=== PATIENT | male | born 1995 | race Caucasian/White ===

== ENCOUNTER 2020-03-14 19:05 | Emergency (ER) | payer MEDICAID, SELFPAY ==
[2020-03-14 19:10] VITALS: BP 149/101; PULSE 138; RESP 22; TEMP 37; O2SAT 98; BMI 22.3
[2020-03-14 19:21] VITALS: BP 133/94; PULSE 123
--- NOTE | 2020-03-14 19:22 | HMH.EDUTC ---
[facility] Disposition Clinical Impression: Viral syndrome, Encounter for laboratory testing for COVID-19 virus Disposition: Home, Self-Care Condition on Discharge: Good Instructions: Diarrhea, DI for Vomiting -- Adult, Nausea and Vomiting-Adult, DI for COVID-19 (Suspected or Confirmed ), COVID-19 Viral Test, Preventing the Spread of Coronavirus Discharge Instructions Additional Instructions: *Monitor Temp, Over the counter Motrin or Tylenol as directed/as needed Tylenol every 4 hours and Motrin every 6 hours (as long as your family doctor has told you that you can take it) for fever or pain. and straight to ER if unable to lower temp less than 101.0 after medication given ? Avoid fruit juices, as these do not replace minerals and can actually increase diarrhea. ? Children and adults can use sports drinks to replenish electrolytes. Younger children and infants should use products formulated for children, like oral rehydration solutions. ? Eat food in small amounts and let your stomach recover. ? Get lots of rest. You may feel tired or weak. ? No greasy or fried foods for the next 24-48 hours BRAT diet Bananas Rice Apples and [employer] ? Make sure to drink plenty of liquids ? Return if needed ? Straight to ER if any life threatening symptoms ? Zofran as prescribed ? Follow up with family doctor in the next 48-72 hours if no improvement or any worsening of symptoms Follow up IMMEDIATELY for new or worsening symptoms or no Noticeable improvement over the next 48-72 hours. 911 for difficulty breathing or swallowing You were tested for today for COVID19 your test result should be back in the next 24-48 hours, you may call to the [facility] to see if your test results are back in the next 48 hours [phone] [facility] hours are 9am-9pm You was given a handout with instructions for Self Quarantine and Self isolation for while you wait on test results and what to do if they are positive If you are positive the Health Dept will be contacting you also Prescriptions: Ondansetron [Zofran 4mg ODT] 4 mg PO TIDP PRN #12 tab PRN Reason: Vomiting Transmission Status: Received by [facility]/pharmacy #[id number] Referrals: Gianni Cox, [Primary Care Provider] - As needed Forms: Work/School Release Time of Disposition: 19:33 Medical Decision Making - Sandro Inquiry Pt receiving controlled substance: No Sandro was queried for this patient: No Vital Signs: 03/14/20 19:10 03/14/20 19:21 Temperature 98.6 F Temperature Source Oral Pulse Rate [Right Brachial] 138 H 123 H Respiratory Rate 22 Blood Pressure [Right Arm] 149/101 H 133/94 H Blood Pressure Mean [Right Arm] 117 107 Blood Pressure Source [Right Arm] Automatic Cuff Automatic Cuff Blood Pressure Position [Right Arm] Sitting Sitting 02 Sat by Pulse Oximetry 98 Oxygen Delivery Method Room Air - Lab Data Lab Results 03/14/20 19:28: Influenza Type A Ag Negative, Influenza Type B Ag Negative Orders (Tests/Meds): ORDERS Category Date Time Status Covid-19 Nasal PCR ([facility]) Routine Lab 03/14/20 19:10 Received Medical Decision Narrative: Discussed with patient and recommended IV bolus of NS and patient declined States that he has not had any vomiting or diarrhea today and has been drinking water and keeping it down State that he does not want any IV fluids at this time Patient educated that he must be drinking fluids to keep himself hydrated and he verbalized understanding Discussed transfer to the ED for further treatment and evaluation and again declined [facility] HPI - General Stated complaint: COVID Test Time Seen by Provider: 03/14/20 19:22 Mode of Arrival: Ambulatory Source of Information: Patient Limitations: No Limitations Description of Symptoms (Recalled from Triage Doc. by RN): PATIENT C/O FEVER, DIARRHEA, BODY ACHES, AND WEAKNESS SINCE THURSDAY HEENT Symptoms (Recalled from RN notes): No Resp Symptoms (Recalled from RN notes): No Skin Symptoms (Recalled from RN notes): No MS Sy
[2020-03-14 19:42] LABS: UTC Influenza A Antigen Negative (Negative); UTC Influenza B Antigen Negative (Negative)
[2020-03-14 19:51] VITALS: BP 133/94; PULSE 104; RESP 22; TEMP 37; O2SAT 98
== END 2020-03-14 19:52 | disposition home or self-care (01) ==
PROVIDERS: Emergency Provider Nurse Practitioner; PCP Family Medicine
DX: Z20.828 Contact with and (suspected) exposure to other viral communicable diseases (principal); B34.9 Viral infection, unspecified
CPT/HCPCS: 87804; 99202; U0003

== ENCOUNTER → 2021-03-28 16:36 | Outpatient (CLI) | payer OTHER, SELFPAY | PROVIDERS: Visit Provider Nurse Practitioner | DX: U07.1 COVID-19 (principal) | CPT/HCPCS: C9803; U0003; U0005 ==

== ENCOUNTER → 2021-11-26 07:21 | Outpatient (CLI) | payer SELFPAY ==
[2021-11-26 19:52] LABS: Eosinophils # 0.1 K/mm3 (0.0-0.4); Eosinophils % 2.3 % (0.1-12.0); Hemoglobin 16.6 g/dL (14.1-18.0); Lymphocytes # 1.1 K/mm3 (0.7-4.5); Lymphocytes % 27.6 % (10-50); Mean Corpuscular Hemoglobin 33.3 pg (27.0-31.2); Mean Corpuscular Volume 104.3 fl (80-94); Mean Platelet Volume 8.9 fl (7.4-10.4); Monocytes # 0.6 K/mm3 (0.1-1.0); Monocytes % 13.7 % (1.7-9.3); Neutrophils # 2.3 K/mm3 (1.8-7.8); Neutrophils % 55.3 % (37.0-80.0); Platelet Count 302 K/mm3 (142-424); Red Blood Count 4.99 M/mm3 (4.60-6.20); Red Cell Distribution Width 12.6 % (11.5-17.5); White Blood Count 4.1 K/mm3 (4.8-10.8)
[2021-11-26 19:57] LABS: Alanine Aminotransferase 87 U/L (12-78); Albumin Level 4.8 g/dl (3.5-5.0); Albumin/Globulin Ratio 1.6 (1.1-1.8); Alkaline Phosphatase 56 U/L (38-126); Anion Gap 12.6 mEq/L (5-15); Aspartate Amino Transferase 147 U/L (17-59); Bilirubin,Total 0.5 mg/dl (0.2-1.3); Blood Urea Nitrogen 5 mg/dl (9-20); Calcium 9.9 mg/dl (8.4-10.2); Carbon Dioxide 30 mmol/L (22.0-30.0); Chloride 102 mmol/L (98-107); Estimated Glomerular Filt Rate 135 ml/min (>60); GFR (African American) 164 ML/MIN (>60); Glucose 86 mg/dl (74-100); Potassium 4.6 mmoL/L (3.5-5.1); Sodium 140 mmol/L (136-145); Total Protein,Serum 7.8 g/dl (6.3-8.2)
[2021-11-26 21:12] LABS: Thyroid Stimulating Hormone 2.05 uIU/mL (0.465-4.68)
[2021-11-26 22:06] LABS: 25-OH Vitamin D, Total 26.5 ng/mL (30-100)
== END ==
PROVIDERS: PCP Nurse Practitioner; Visit Provider Nurse Practitioner
DX: F32.A Depression, unspecified (principal); F41.9 Anxiety disorder, unspecified; E55.9 Vitamin D deficiency, unspecified; Z79.899 Other long term (current) drug therapy
CPT/HCPCS: 80053; 82306; 84443; 85025

== ENCOUNTER → 2021-12-24 11:00 | Outpatient (CLI) | payer OTHER, SELFPAY ==
[2021-12-24 18:28] LABS: Basophils # 0.1 K/mm3 (0-0.2); Basophils % 1.2 % (0.1-2.0); Eosinophils # 0.2 K/mm3 (0.0-0.4); Eosinophils % 2.9 % (0.1-12.0); Hematocrit 53.7 % (42.0-52.0); Hemoglobin 17.5 g/dL (14.1-18.0); Lymphocytes # 1.5 K/mm3 (0.7-4.5); Lymphocytes % 21.7 % (10-50); Mean Corpuscular HGB Conc 32.6 g/dL (31.8-35.4); Mean Corpuscular Hemoglobin 33.2 pg (27.0-31.2); Mean Corpuscular Volume 101.9 fl (80-94); Mean Platelet Volume 8.8 fl (7.4-10.4); Monocytes # 0.7 K/mm3 (0.1-1.0); Monocytes % 9.8 % (1.7-9.3); Neutrophils # 4.3 K/mm3 (1.8-7.8); Neutrophils % 64.4 % (37.0-80.0); Platelet Count 263 K/mm3 (142-424); Red Blood Count 5.27 M/mm3 (4.60-6.20); Red Cell Distribution Width 12.9 % (11.5-17.5); White Blood Count 6.7 K/mm3 (4.8-10.8)
[2021-12-24 18:39] LABS: Alanine Aminotransferase 46 U/L (12-78); Albumin Level 4.7 g/dl (3.5-5.0); Alkaline Phosphatase 56 U/L (38-126); Aspartate Amino Transferase 61 U/L (17-59); Bilirubin,Indirect 0.4 mg/dL (0.0-0.9); Bilirubin,Total 0.4 mg/dl (0.2-1.3); Bilirubin,Unconjugated 0.4 mg/dL (0.0-1.1); Total Protein,Serum 7.5 g/dl (6.3-8.2)
== END ==
LOC: LAB.DROPOF 12-25 07:47
PROVIDERS: PCP Nurse Practitioner; Visit Provider Nurse Practitioner
DX: R74.8 Abnormal levels of other serum enzymes (principal)
CPT/HCPCS: 80076; 85025

== ENCOUNTER → 2022-01-20 15:13 | Outpatient (CLI) | payer OTHER, SELFPAY ==
[2022-01-20 19:14] LABS: Coronavirus 19, PCR Not Detected (NotDetected); Influenza A, PCR Not Detected (NotDetected); Influenza B, PCR Not Detected (NotDetected)
[2022-01-20 19:24] LABS: Basophils # 0.1 K/mm3 (0-0.2); Basophils % 0.8 % (0.1-2.0); Eosinophils # 0.1 K/mm3 (0.0-0.4); Eosinophils % 0.4 % (0.1-12.0); Hematocrit 54.3 % (42.0-52.0); Hemoglobin 17.8 g/dL (14.1-18.0); Lymphocytes # 0.9 K/mm3 (0.7-4.5); Lymphocytes % 8.4 % (10-50); Mean Corpuscular HGB Conc 32.8 g/dL (31.8-35.4); Mean Corpuscular Hemoglobin 33.7 pg (27.0-31.2); Mean Corpuscular Volume 102.9 fl (80-94); Mean Platelet Volume 9.1 fl (7.4-10.4); Monocytes # 1.1 K/mm3 (0.1-1.0); Monocytes % 10.6 % (1.7-9.3); Neutrophils # 8.6 K/mm3 (1.8-7.8); Neutrophils % 79.8 % (37.0-80.0); Platelet Count 337 K/mm3 (142-424); Red Blood Count 5.28 M/mm3 (4.60-6.20); Red Cell Distribution Width 14.1 % (11.5-17.5); White Blood Count 10.7 K/mm3 (4.8-10.8)
== END ==
LOC: LAB.DROPOF 01-21 06:30
PROVIDERS: PCP Nurse Practitioner; Visit Provider Nurse Practitioner
DX: Z20.822 Contact with and (suspected) exposure to COVID-19 (principal); R05.9 Cough, unspecified
CPT/HCPCS: 85025; C9803; U0003; U0005

== ENCOUNTER 2022-11-20 17:24 | Emergency (ER) | payer OTHER, SELFPAY ==
[2022-11-20 17:26] VITALS: BP 156/101; PULSE 89; RESP 17; TEMP 36.7; O2SAT 100; BMI 24.3
--- NOTE | 2022-11-20 17:30 | PC.NURSE ---
Bonny Arias rounded on pt, vss 154/108 bp, 92 hr, 14 rr, 98.0 temp, 100 RA
--- NOTE | 2022-11-20 17:38 | XR_ITS ---
PROCEDURE INFORMATION: Exam: XR Right Knee Exam date and time: 11/20/2022 5:48 PM Age: 27 years old Clinical indication: Injury or trauma; Fall; Blunt trauma; Knee; Right; Additional info: Fall/pain TECHNIQUE: Imaging protocol: Radiologic exam of the right knee. Views: 3 views. COMPARISON: No relevant prior studies available. FINDINGS: Bones/joints: There are multiple sclerotic foci within the visualized bones which could reflect small infarcts, please correlate with clinical history. No acute fracture or dislocation is identified. Soft tissues: Normal. IMPRESSION: 1. No acute osseous injury. 2. Small sclerotic foci throughout the bones which could reflect osseous infarcts. Further evaluation contrast-enhanced MRI can be considered as warranted.
--- NOTE | 2022-11-20 18:28 | HMH.EDGENADL ---
Discharge Plan Disposition Patient Disposition: Home, Self-Care Condition: Good Chief Complaint: Extremity Injury, Lower Prescriptions Prescriptions: No Action sertraline 100 mg tablet 150 mg PO DAILY Qty: 45 2RF ondansetron HCl 4 mg tablet 4 mg PO Q8H PRN (Reason: nausea and vomiting) Qty: 20 0RF hyoscyamine sulfate 0.125 mg tablet 0.125 mg PO QID PRN (Reason: diarrhea or abdominal cramping) Qty: 30 0RF aripiprazole 5 mg tablet See Rx Instructions .ROUTE .COMPLEX Qty: 30 0RF Dose Instruction: Take 1 Tablet by mouth once daily. Rx Instructions: Take 1 Tablet by mouth once daily. Referrals Follow up/Referrals: Neyda Alegre APRN [Primary Care Provider] - See instructions Jasiel Wallace DO [Staff Physician] - See instructions Activity Restrictions/Add. Instructions Additional Instructions/Restrictions: At this time was felt you are safe to be discharged home. If new or worsening symptoms please do not hesitate to return the emergency department. For pain please take Tylenol and ibuprofen every 6 hours as needed. Please call and schedule a follow-up appoint with Dr. Wallace as soon as you are able. Clinical Impressions Clinical Impression: Injury of knee Stand Alone Forms Stand Alone Forms: Work/School Release Discharge ED Provider: Felipe Maynard General Adult HPI General Chief complaint: Extremity Injury, Lower Stated complaint: AO 11/18/22 slipped at work right knee Time Seen by Provider: 11/20/22 17:45 Mode of Arrival: Family Vehicle Source of Information: Patient Limitations: No Limitations Description of Symptoms (Recalled from ER Triage Doc. by RN): Pt c/o R knee pain after a fall at work on Thursday. States he was bending down with his weight on the RLE, and his RLE slipped on water and the knee buckled in. He has taken Advil for the pain, most recently as of yesterday 11/19. States he is able to bear weight on the RLE ok but it is very painful when flexing or extending the knee with weight. 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 History of Present Illness HPI narrative: Patient is a 27-year-old male with no pertinent past medical history presents emergency department for evaluation of traumatic injury sustained at work. 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 Since then patient has had progressive lateral knee pain that is worse with bending, better with locked knee. Patient is able to bear weight. No other acute complaints at this time. Related Data Previous Rx's Medication Instructions Recorded sertraline 100 mg tablet 150 mg PO DAILY #45 tabs 05/06/22 aripiprazole 5 mg tablet See Rx Instructions .Route 06/11/22 .COMPLEX #30 tabs hyoscyamine sulfate 0.125 mg tablet 0.125 mg PO QID PRN diarrhea or 11/06/22 abdominal cramping #30 tabs ondansetron HCl 4 mg tablet 4 mg PO Q8H PRN nausea and 11/06/22 vomiting #20 tabs Allergies Allergy/AdvReac Type Severity Reaction Status Date / Time No Known Allergies Allergy Verified 11/06/22 13:56 [facility] Disclaimer: The information contained in this section may have been updated after the patient was seen, as this information can be updated by other users. Medical History Anxiety Depressed Social History Smoking Status: Current some day smoker tobacco type: e-cigarettes alcohol intake: current substance use type: denies use current occupational status: other Travel in the last 8 weeks: None household members: family housing: house ROS Obtained: Yes Systems reviewed as appropriate & no additional complaints except as documented Physical Exam General General appearance: alert and in no apparent distress Head Head exam: atraumatic and normocephalic Eye Eye exam: Present PERRL ENT ENT exam: Present mucous membranes mois
--- NOTE | 2022-11-20 18:28 | PC.NURSE ---
checked on pt updated him that xray of his knees are back and will be in to see him pt received a water
[2022-11-20 18:43] VITALS: BP 150/98; PULSE 85; RESP 18; TEMP 36.8; O2SAT 99
== END 2022-11-20 18:47 | disposition home or self-care (01) ==
PROVIDERS: Emergency Provider Emergency Medicine; PCP Nurse Practitioner
DX: S89.91XA Unspecified injury of right lower leg, initial encounter (principal); F17.290 Nicotine dependence, other tobacco product, uncomplicated; F41.9 Anxiety disorder, unspecified; F32.A Depression, unspecified; X50.1XXA Overexertion from prolonged static or awkward postures, initial encounter
CPT/HCPCS: 73562; 99283

== ENCOUNTER → 2023-01-22 22:41 | Outpatient (CLI) | payer OTHER, SELFPAY ==
[2023-01-22 20:30] LABS: Coronavirus 19, PCR Not Detected (NotDetected); Influenza A, PCR Not Detected (NotDetected); Influenza B, PCR Not Detected (NotDetected)
== END ==
PROVIDERS: PCP Nurse Practitioner; Visit Provider Nurse Practitioner
DX: J06.9 Acute upper respiratory infection, unspecified (principal); R11.2 Nausea with vomiting, unspecified; R68.83 Chills (without fever)
CPT/HCPCS: 87636

== ENCOUNTER 2023-06-04 22:22 | Outpatient (CLI) | payer OTHER, SELFPAY ==
[2023-06-04 18:28] LABS: Adenovirus,PCR Not Detected (NotDetected); Coronavirus 19, PCR Not Detected (NotDetected); Coronavirus 229E Not Detected (NotDetected); Coronavirus NL63 Not Detected (NotDetected); Coronavirus OC43 Not Detected (NotDetected); Coronovirus HKU1,PCR Not Detected (NotDetected); Human Metapneumovirus Not Detected (NotDetected); Influenza A, PCR Not Detected (NotDetected); Influenza AH1, 2009 Not Detected (NotDetected); Influenza AH1, PCR Not Detected (NotDetected); Influenza AH3,PCR Not Detected (NotDetected); Influenza B, PCR Not Detected (NotDetected); Parainfluenza 1, PCR Not Detected (NotDetected); Parainfluenza 2, PCR Not Detected (NotDetected); Parainfluenza 3, PCR Not Detected (NotDetected); Parainfluenza 4, PCR Not Detected (NotDetected); Respiratory Syncytial Virus Not Detected (NotDetected); Rhinovirus/Enterovirus Not Detected (NotDetected)
== END 2023-06-04 23:59 ==
LOC: LAB.DROPOF 22:22
PROVIDERS: PCP Nurse Practitioner; Visit Provider Nurse Practitioner
DX: R51.9 Headache, unspecified (principal); R09.81 Nasal congestion; J02.9 Acute pharyngitis, unspecified; M79.10 Myalgia, unspecified site; R05.8 Other specified cough; Z20.828 Contact with and (suspected) exposure to other viral communicable diseases
CPT/HCPCS: 87632; 87635

== ENCOUNTER 2023-07-23 10:52 | Emergency (ER) | payer OTHER, SELFPAY ==
--- NOTE | 2023-07-23 | ECG_ITS ---
APPROVED REPORT Exam: Resting ECG HR:102 bpm ECG Measurements Heart Rate 102 AXES SC 143 P 85 QRSd 101 QRS 82 QT 340 T 77 QTc 399 Conclusion SINUS TACHYCARDIA ABNORMAL RHYTHM ECG Electronically signed by : YONAS ENG, 07/25/2023 00:26:51
[2023-07-23 11:05] VITALS: BP 164/86; PULSE 103; RESP 23; TEMP 36.8; O2SAT 100; BMI 25.7
--- NOTE | 2023-07-23 11:17 | EXP.UTC ---
Discharge Plan Disposition Patient Disposition: Home, Self-Care Condition: Good Prescriptions Prescriptions: New hydroxyzine pamoate [Vistaril] 25 mg capsule 25 mg PO Q6H PRN (Reason: anxiety) Qty: 30 0RF magnesium oxide 400 mg magnesium tablet 400 mg PO BID Qty: 3 0RF No Action sertraline 100 mg tablet 150 mg PO DAILY Qty: 45 2RF fluticasone propionate 50 mcg/actuation spray,suspension 1 spray intranasal DAILY Qty: 16 2RF Rx Instructions: administer into each nostril aripiprazole 5 mg tablet See Rx Instructions .ROUTE .COMPLEX Qty: 30 0RF Dose Instruction: Take 1 Tablet by mouth once daily. Rx Instructions: Take 1 Tablet by mouth once daily. Referrals Follow up/Referrals: Neyda Alegre APRN [Primary Care Provider] - See instructions Activity Restrictions/Add. Instructions Additional Instructions/Restrictions: Drink plenty of fluids. Take tylenol or ibuprofen for pain or fever. Take the medications as directed. Follow up with your regular doctor. GO TO THE ER FOR ANY WORSENING SYMPTOMS Clinical Impressions Clinical Impression: Hypomagnesemia, Syncope, Acute viral syndrome Stand Alone Forms Stand Alone Forms: Work/School Release Instructions Patient Instructions: Middle Ear Infection, DI for Sinusitis Discharge ED Provider: Ethan Guzmán [facility] General Stated complaint: Almost Fainted at work Time Seen by Provider: 07/23/23 11:17 History of Present Illness Provider Complaint: He states that he started to feel bad yesterday. He had chills and malaise through last night. This morning he went to work. 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 While he was doing this he states that he started to feel worse. She states that he started to feel feel faint. He sit down in the floor. He states that he came very close to passing out. Since then he has felt weak, anxious, and had chills. He denies any chest pain. He denies that he felt like his heart was racing. He denies any shortness of breath. Related Data Previous Rx's Medication Instructions Recorded sertraline 100 mg tablet 150 mg (1.5 x 100 mg) PO DAILY #45 05/06/22 tabs fluticasone propionate 50 1 spray intranasal DAILY #16 grams 12/29/22 mcg/actuation nasal spray,suspension aripiprazole 5 mg tablet See Rx Instructions .Route 02/16/23 .COMPLEX #30 tabs hydroxyzine pamoate 25 mg capsule 25 mg PO Q6H PRN anxiety #30 caps 07/23/23 (Vistaril) magnesium oxide 400 mg PO BID #3 tabs 07/23/23 Allergies Allergy/AdvReac Type Severity Reaction Status Date / Time No Known Allergies Allergy Verified 07/23/23 11:42 [facility] Disclaimer: The information contained in this section may have been updated after the patient was seen, as this information can be updated by other users. Medical History Anxiety Depressed Social History Smoking Status: Current some day smoker tobacco type: e-cigarettes alcohol intake: current alcohol intake frequency: a few times a week substance use type: denies use current occupational status: other Travel in the last 8 weeks: None household members: family housing: house ROS Obtained: Yes All systems reviewed & no additional complaints except as documented Constitutional Constitutional: Reports as per HPI, Reports body ache, Reports chills and Denies fever(s) Eyes Eyes: Denies eye discharge ENT Ears, Nose, Mouth, and Throat: Reports as per HPI Cardiovascular Cardiovascular: Denies chest pain Respiratory Respiratory: Denies shortness of breath, Denies chest congestion, Reports cough, Denies stridor and Denies wheezing Gastrointestinal Gastrointestingal: Reports cramping, diarrhea, nausea and vomiting; Denies abdominal pain or constipation Musculoskeletal Musculoskeletal: Denies arthralgias Integumentary/Breasts Skin/Breast: Denies rash Neurologic Neurologic: Denies paresthesias Allergic/Immunologic Allergic/Immunologic: Denies wheezing Physical Exam General General appearance: alert and in no apparent distress Head Head exam: atraumatic, normocephalic and normal inspection Eye Eye exam: Present normal appearance, PERRL and EOMI ENT ENT exam: Present normal exam, normal oropharynx, mucous membranes moist, TM's normal bilaterally and normal external ear exam Neck Neck exam: Present normal inspection, full ROM and trachea midline; Absent meningismus or lymphadenopathy Chest Chest inspection: Present normal inspection and symmetric chest wall rise; Absent tenderness Respiratory Respiratory exam: Present normal lung sounds bilaterally; Absent respiratory distress Cardiovascular Cardiovascular exam: Present regular rate and normal rhythm; Absent JVD Abdominal Exam Abdominal exam: Present soft and normal bowel sounds; Absent distention, tenderness or guarding Extremities Exam Extremities exam: Present normal inspection, full ROM and normal capillary refill; Absent calf tenderness Back Exam Back exam: Present normal inspection; Absent tenderness Neurological Exam Neurological exam: Present alert and oriented X3 Psychiatric Psychiatric exam: Present normal affect and normal mood Skin Skin exam: Present warm, dry, intact and normal color Lymphatic Lymphatic Findings: no adenopathy Medical Decision Making Medical Records Medical records reviewed: No I reviewed the patient's medical records. Sandro Inquiry Pt receiving controlled substance: No Lab Data Lab results reviewed: Yes I reviewed the patient's lab results. 07/23/23 12:18 07/23/23 12:18
--- NOTE | 2023-07-23 11:32 | XR_ITS ---
FINAL REPORT TECHNIQUE: Chest PA & Lateral CLINICAL HISTORY: Nonspecific cough COMPARISON: None FINDINGS: 2 views of the chest were performed. The heart size is normal. The mediastinum is within normal limits. There is no acute cardiopulmonary process. There are no pleural effusions. There is no pneumothorax. The bony thorax appears intact. IMPRESSION: No acute cardiopulmonary process. Reviewed, Interpreted and Dictated by Prabhjot Solis MD Transcribed by Rhianna Rodriguez Authenticated and [facility]
[2023-07-23 11:43] VITALS: BP 164/86; BP 168/82; BP 172/88; PULSE 103; PULSE 105; PULSE 114
--- NOTE | 2023-07-23 12:19 | PC.NURSE ---
Sent blood to lab via tube system
[2023-07-23 12:25] LABS: Basophils # 0.1 K/mm3 (0-0.2); Basophils % 0.9 % (0.1-2.0); Eosinophils # 0.1 K/mm3 (0.0-0.4); Eosinophils % 1.2 % (0.1-12.0); Hemoglobin 16.5 g/dL (14.1-18.0); Lymphocytes # 1.6 K/mm3 (0.7-4.5); Lymphocytes % 14.1 % (10-50); Mean Corpuscular HGB Conc 34.4 g/dL (31.8-35.4); Mean Corpuscular Hemoglobin 35.5 pg (27.0-31.2); Mean Corpuscular Volume 103.2 fl (80-94); Mean Platelet Volume 7.6 fl (7.4-10.4); Monocytes # 0.8 K/mm3 (0.1-1.0); Monocytes % 6.6 % (1.7-9.3); Neutrophils # 8.9 K/mm3 (1.8-7.8); Neutrophils % 77.3 % (37.0-80.0); Platelet Count 291 K/mm3 (142-424); Red Blood Count 4.65 M/mm3 (4.60-6.20); Red Cell Distribution Width 14.1 % (11.5-17.5); White Blood Count 11.5 K/mm3 (4.8-10.8)
[2023-07-23] MEDS: hydrOXYzine pamoate 25MG CAPSULE 25 MG PO (12:26)
[2023-07-23 12:27] LABS: UTC Influenza A Antigen Negative (Negative); UTC Influenza B Antigen Negative (Negative); UTC Strep Screen (Rapid) Negative (Negative)
[2023-07-23] MEDS: 0.9 % SODIUM CHLORIDE 1000ML 1,000 ML 500 ML IV (12:27)
--- NOTE | 2023-07-23 12:44 | PC.NURSE ---
Sent rapid covid flu to lab via tube system
[2023-07-23 12:46] LABS: Anion Gap 26.6 mEq/L (5-15); Blood Urea Nitrogen 7 mg/dl (9-20); Calcium 9.4 mg/dl (8.4-10.2); Carbon Dioxide 19 mmol/L (22.0-30.0); Chloride 96 mmol/L (98-107); Creatinine Clearance Estimated 169 mL/min (50-200); Estimated Glomerular Filt Rate 133 ml/min (>60); GFR (African American) 161 ML/MIN (>60); Glucose 93 mg/dl (74-100); Magnesium 1.3 mg/dl (1.6-2.3); Potassium 3.6 mmoL/L (3.5-5.1); Sodium 138 mmol/L (136-145)
[2023-07-23 12:47] LABS: Coronavirus 19, PCR Not Detected (NotDetected); Influenza A, PCR Not Detected (NotDetected); Influenza B, PCR Not Detected (NotDetected)
[2023-07-23] MEDS: MAGNESIUM OXIDE 400MG TABLET 400 MG PO (13:45)
[2023-07-23 14:09] VITALS: BP 169/84; PULSE 120; RESP 18; TEMP 36.8; O2SAT 100
== END 2023-07-23 14:09 | disposition home or self-care (01) ==
PROVIDERS: Emergency Provider Nurse Practitioner Family; PCP Nurse Practitioner
DX: E83.42 Hypomagnesemia (principal); R55 Syncope and collapse; R00.0 Tachycardia, unspecified; R53.1 Weakness; R68.83 Chills (without fever); F17.290 Nicotine dependence, other tobacco product, uncomplicated
CPT/HCPCS: 71046; 80048; 83735; 85025; 87636; 87804; 87880; 93005; 96360; 99204; 99212; G0463

== ENCOUNTER 2023-08-03 09:30 | Outpatient (CLI) | payer OTHER, SELFPAY ==
[2023-08-03 18:57] LABS: Basophils # 0.1 K/mm3 (0-0.2); Basophils % 1.1 % (0.1-2.0); Eosinophils # 0.1 K/mm3 (0.0-0.4); Eosinophils % 2.3 % (0.1-12.0); Hematocrit 49.4 % (42.0-52.0); Hemoglobin 16.1 g/dL (14.1-18.0); Lymphocytes # 1.2 K/mm3 (0.7-4.5); Lymphocytes % 24.5 % (10-50); Mean Corpuscular HGB Conc 32.5 g/dL (31.8-35.4); Mean Corpuscular Hemoglobin 35.6 pg (27.0-31.2); Mean Corpuscular Volume 109.5 fl (80-94); Mean Platelet Volume 9.4 fl (7.4-10.4); Monocytes # 0.6 K/mm3 (0.1-1.0); Monocytes % 13.4 % (1.7-9.3); Neutrophils # 2.8 K/mm3 (1.8-7.8); Neutrophils % 58.6 % (37.0-80.0); Platelet Count 258 K/mm3 (142-424); Red Blood Count 4.52 M/mm3 (4.60-6.20); Red Cell Distribution Width 14.1 % (11.5-17.5); White Blood Count 4.7 K/mm3 (4.8-10.8)
[2023-08-03 19:47] LABS: Alanine Aminotransferase 90 U/L (12-78); Albumin/Globulin Ratio 1.9 (1.1-1.8); Alkaline Phosphatase 57 U/L (38-126); Anion Gap 14.2 mEq/L (5-15); Aspartate Amino Transferase 115 U/L (17-59); Bilirubin,Total 0.6 mg/dl (0.2-1.3); Blood Urea Nitrogen 12 mg/dl (9-20); Calcium 10.4 mg/dl (8.4-10.2); Carbon Dioxide 29 mmol/L (22.0-30.0); Chloride 101 mmol/L (98-107); Estimated Glomerular Filt Rate 133 ml/min (>60); GFR (African American) 161 ML/MIN (>60); Globulin 2.7 g/dL (1.3-3.2); Glucose 77 mg/dl (74-100); Magnesium 1.7 mg/dl (1.6-2.3); Phosphorous 3.9 mg/dl (2.5-4.5); Potassium 4.2 mmoL/L (3.5-5.1); Sodium 140 mmol/L (136-145); Total Protein,Serum 7.7 g/dl (6.3-8.2)
[2023-08-03 19:59] LABS: Hemoglobin A1C 4.6 % (4.0-6.0)
[2023-08-03 20:16] LABS: Thyroid Stimulating Hormone 1.37 uIU/mL (0.465-4.68)
[2023-08-03 20:35] LABS: Vitamin B12 383 pg/mL (239-931)
== END 2023-08-03 23:59 | disposition home or self-care (01) ==
LOC: LAB.DROPOF 08-05 09:30
PROVIDERS: PCP Nurse Practitioner; Visit Provider Nurse Practitioner
DX: R55 Syncope and collapse (principal); Z68.26 Body mass index [BMI] 26.0-26.9, adult
CPT/HCPCS: 80053; 82607; 83036; 83735; 84100; 84443; 85025

== ENCOUNTER 2023-08-06 16:58 | Outpatient (CLI) | payer OTHER, SELFPAY | END 2023-08-06 23:59 | disposition home or self-care (01) | LOC: RT 17:00 | PROVIDERS: PCP Nurse Practitioner; Visit Provider Nurse Practitioner | DX: R55 Syncope and collapse (principal) | CPT/HCPCS: 93225 ==

== ENCOUNTER 2023-08-14 13:21 | Outpatient (CLI) | payer OTHER, SELFPAY ==
--- NOTE | 2023-08-14 13:22 | CA_ITS ---
APPROVED REPORT EXAM: Comprehensive 2D, Doppler, and color-flow Echocardiogram Puff Ironer: Bibiana Young RVT Ht: 5 ft 8 in Wt: 176lbs BSA: 1.94 BP: 136/74 mmHg Indications: SYNCOPE,SMOKERMURMUR A CHILD 2D Dimensions LA Volume 36.90 mL LA Volume Index 19.02 mL/m2 (M/F) 16-34 M-Mode Dimensions RVDd 2.25 cm (0.9-2.6) LA Diam 2.80 cm (1.9-4.0) LVDd 4.50 cm (3.5-5.7) LVDs 2.96 cm (3.5-5.7) IVSd 0.86 cm (0.6-1.1) PWd 0.46 cm (0.6-1.1) EF (Teich) 63.30% FS 34.20% EDV (Teich) 92.40 mL TAPSE 2.78 (<1.7) ESV (Teich) 33.90 mL LV Diastology E Decel Time 170 (160-240 msec) E/A Ratio 1.5 Aortic Valve AMI Index 0.76 cm2/m2 AoV Peak Cecilio. 172.0 (50-130 cm/s) AO Peak GR. 11.80 mmHg AO Mean GR. 7.00 (<5 mmHg) AO VTI 35.5 (18-25 cm) AMI (VTI) 1.51 (2.5-4.5 cm2) Mitral Valve MV E Max Cecilio. 113.0 (40-130 cm/s) MV A Velocity 74.0 (40-130 cm/s) E/A Ratio 1.53 MV PHT 50.0 ms Pulmonary Valve PV Peak Velocity 79.0 (50-150 cm/s) Tricuspid Valve TR P. Velocity 253.00 cm/s RAP Estimate 10.00 mmHg RVSP 35.50 mmHg Left Ventricle The left ventricle is normal size. The left ventricular systolic function is normal. The left ventricular ejection fraction is within the normal range. There is normal left ventricular wall thickness. There is normal LV segmental wall motion. The left ventricular diastolic function is normal. LVEF is 50-55%. Right Ventricle The right ventricle is normal size. The right ventricular systolic function is normal. Atria The left atrium size is normal. The right atrium size is normal. There is no Doppler evidence of interatrial shunt. Aortic Valve The aortic valve opens well. There is no aortic valvular stenosis. No aortic regurgitation is present. Mitral Valve The mitral valve is normal in structure. No evidence of mitral valve stenosis. There is no mitral valve regurgitation noted. Tricuspid Valve The tricuspid valve leaflets are thin and pliable. Mild tricuspid regurgitation. RVSP is 20 to 25 mmHg. Pulmonic Valve The pulmonary valve is normal in structure. Trace pulmonic regurgitation. Great Vessels The aortic root is normal in size. The ascending aorta is not well-visualized. IVC is normal in size and collapses >50% with inspiration. Pericardium There is no pericardial effusion. Other Information Study Quality: Adequate Conclusion Normal biventricular systolic function. Mild TR. Electronically signed by : Doris Romeo MD 08/16/2023 22:38:22
== END 2023-08-14 23:59 | disposition home or self-care (01) ==
LOC: RT 13:22
PROVIDERS: PCP Nurse Practitioner; Visit Provider Nurse Practitioner
DX: R55 Syncope and collapse (principal)
CPT/HCPCS: 93306

== ENCOUNTER 2023-09-17 09:19 | Outpatient (CLI) | payer OTHER, SELFPAY ==
[2023-09-16 18:44] LABS: Basophils # 0.2 K/mm3 (0-0.2); Basophils % 2.1 % (0.1-2.0); Eosinophils # 0.3 K/mm3 (0.0-0.4); Eosinophils % 3.4 % (0.1-12.0); Hematocrit 51.1 % (42.0-52.0); Hemoglobin 17.1 g/dL (14.1-18.0); Lymphocytes # 2.4 K/mm3 (0.7-4.5); Lymphocytes % 24.3 % (10-50); Mean Corpuscular HGB Conc 33.4 g/dL (31.8-35.4); Mean Corpuscular Hemoglobin 35.1 pg (27.0-31.2); Mean Corpuscular Volume 104.8 fl (80-94); Mean Platelet Volume 8.3 fl (7.4-10.4); Monocytes # 0.7 K/mm3 (0.1-1.0); Monocytes % 6.8 % (1.7-9.3); Neutrophils # 6.3 K/mm3 (1.8-7.8); Neutrophils % 63.5 % (37.0-80.0); Platelet Count 459 K/mm3 (142-424); Red Blood Count 4.87 M/mm3 (4.60-6.20); White Blood Count 9.9 K/mm3 (4.8-10.8)
[2023-09-16 18:57] LABS: Alanine Aminotransferase 67 U/L (12-78); Albumin Level 5.1 g/dl (3.5-5.0); Albumin/Globulin Ratio 1.6 (1.1-1.8); Alkaline Phosphatase 50 U/L (38-126); Anion Gap 18.1 mEq/L (5-15); Aspartate Amino Transferase 62 U/L (17-59); Bilirubin,Total 0.3 mg/dl (0.2-1.3); Blood Urea Nitrogen 9 mg/dl (9-20); Calcium 10.1 mg/dl (8.4-10.2); Carbon Dioxide 29 mmol/L (22.0-30.0); Chloride 101 mmol/L (98-107); Estimated Glomerular Filt Rate 114 ml/min (>60); GFR (African American) 138 ML/MIN (>60); Globulin 3.1 g/dL (1.3-3.2); Glucose 89 mg/dl (74-100); Potassium 4.1 mmoL/L (3.5-5.1); Sodium 144 mmol/L (136-145); Total Protein,Serum 8.2 g/dl (6.3-8.2); Uric Acid 5.8 mg/dl (3.5-8.5)
[2023-09-16 19:04] LABS: C-Reactive Protein 3.3 mg/L (0-4)
[2023-09-16 19:17] LABS: 25-OH Vitamin D, Total 27.2 ng/mL (30-100)
[2023-09-16 19:46] LABS: Vitamin B12 352 pg/mL (239-931)
--- NOTE | 2023-09-17 09:25 | XR_ITS ---
FINAL REPORT CLINICAL HISTORY: right wrist pain FINDINGS: Three views show no evidence of an acute, displaced fracture or dislocation of the visualized bony architecture. The joint spaces appear normal. IMPRESSION: Unremarkable exam. Reviewed, Interpreted and Dictated by Anne Ko MD Transcribed by Estella Bey Authenticated and [facility]
[2023-09-18 08:21] LABS: RA Latex Turbid. 14.2 IU/mL (<14.0)
[2023-09-20 13:07] LABS: Antinuclear Antibodies, IFA Negative (.)
== END 2023-09-17 23:59 | disposition home or self-care (01) ==
LOC: RAD 09:20
PROVIDERS: PCP Nurse Practitioner; Visit Provider Nurse Practitioner
DX: M25.531 Pain in right wrist (principal); I10 Essential (primary) hypertension; E55.9 Vitamin D deficiency, unspecified; F10.20 Alcohol dependence, uncomplicated; F17.210 Nicotine dependence, cigarettes, uncomplicated; F17.220 Nicotine dependence, chewing tobacco, uncomplicated
CPT/HCPCS: 73110; 80050; 80053; 82306; 82607; 84443; 84550; 85025; 86038; 86140; 86431

== ENCOUNTER 2024-09-07 20:57 | Observation (INO) | payer MEDICAID, SELFPAY ==
--- OUTSIDE RECORDS SUMMARY | 2023-03-24 20:00 | XMS_ITS | Continuity of Care Document ---
Author Organization [facility] Address [address] [place] [address] Phone Care Team Providers Care Electronics Supervisor Name Role Phone Stephen Garcia PT Unavailable [...] Provider Providers Copied on Encounter [facility], [facility] [place], [place], [facility], tel:[phone] No Information 3 Radha Mitchell. [address], [place], [place], [id number] , [place]. tel:[phone] [facility], [facility] [place], [place], [facility], [place] tel:[phone] [facility] [place] Unspecified internal derangement of right kneePain in right knee 3 Maykel Jean Baptisteh. [address] [facility] [place], [facility], [place]. tel:[phone] Referring Provider: Sancho Rodriguez, [address] [facility], [address] . tel:[phone] [facility], [facility] [place], [facility], [place] tel:[phone] [facility] Unspecified internal derangement of right kneePain in right knee 3 Maykel Hearn. [address] [place], [place], [facility], [place]. tel:[phone] Referring Provider: Sancho Rodriguez, [address] [facility] [place], [address] . tel:[phone] [facility], [facility] [address], [place], [address], [place] tel:[phone] [facility] Unspecified internal derangement of right kneePain in right knee 3 [facility]. [address], [place], [place], [id number] , . tel:[phone] Referring Provider: Sancho Rodriguez, [address], [place], [address] . tel:[phone] [facility], [address], [place], [address], [place] tel:[phone] [facility] Unspecified internal derangement of right kneePain in right knee 0 3 Maykel Jean Baptisteh. [address], [place], [address], [place]. tel:[phone] Referring Provider: Sancho Rodriguez, [address], [place], [address] . tel:[phone] [facility], [address], [place], [address], [place] tel:[phone] [facility] Unspecified internal derangement of right kneePain in right knee 3 [facility]. [address], [place], [place], [id number] , [place]. tel:[phone] Referring Provider: Sancho Rodriguez, [address], [place], [address] . tel:[phone] [facility], [address], [place], [address], [place] tel:[phone] [facility] Unspecified internal derangement of right kneePain in right knee 3 3 Maykel Jean Baptisteh. [address], [place], [address], [place]. tel:[phone] Referring Provider: Sancho Rodriguez, [address], [place], [address] . tel:[phone] [facility], [address], [place], [address], [place] tel:[phone] [facility] Unspecified internal derangement of right kneePain in right knee 3 Porum Edward. [address], [place], [place], [id number] , . tel:[phone] Referring Provider: Sancho Rodriguez, [address], [place], [address] . tel:[phone] [facility], [address], [place], [address], [place] tel:[phone] [facility] Unspecified internal derangement of right kneePain in right knee Dec- 3 Maykel Hearn. [address], [place], [address], [place]. [phone] Referring Provider: Sancho Rodriguez, [address], [place], [address] . tel:[phone] [facility], [address], [place], [address], [place] tel:[phone] [facility] Unspecified internal derangement of right kneePain in right knee 3 [facility]. [address], [place], [place], [id number] , [place]. tel:[phone] Referring Provider: Sancho Rodriguez, [address], [place], [address] . tel:[phone] [facility], [address], [place], [address], [place] tel:[phone] [facility] Unspecified internal derangement of right kneePain in right knee 3 Zac Galloway. . Referring Provider: Sancho Rodriguez, [address], [place], [address] . tel:[phone] [facility], [address], [place], [address], [place] tel:[phone] [facility] Unspecified internal derangement of right kneePain in right knee Dec-0 3 Rebecca Bull. [address], [place], [place], [id number] , . tel:[phone] Referring Provider: Sancho Rodriguez, [address], [place], [address] . tel:[phone] [facility], [address], [place], [address], [place] tel:[phone] [facility] Unspecified internal derangement of right kneePain in right knee Nov- 3 Radha Mitchell. [address], [place], [place], [id number] , [place]. [phone] Referring Provider: Sancho Rodriguez, [address], [place], [address] . tel:[phone] Office/outpat ient visit,[facility], [facility], [address], [place], [address], [place] tel:[phone] [facility] Sprain of unspecified site of right knee, initial encounter 3 Joey Kingsley. [address], [place], [place], [id number] , [place]. tel:[phone] Referring Provider: Sancho Rodriguez, [address] [place], [address] . tel:[phone] [facility], [address], [place], [address], [place] tel:[phone] [facility] No Information 3 Joey Kingsley. [address], [place], [place], [id number] , [place]. [phone] Referring Provider: Sancho Rodriguez, [address], [place], [address] . tel:[phone] Office/outpat ient visit,[facility], [facility], [address] [facility], [place], [address], [place] tel:[phone] [facility] Unspecified injury of right lower leg, initial encounter 3 Joey Kingsley. [address] [place], [id number] , [place]. tel:[phone] Referring Provider: Sancho Rodriguez, [address] [place], [address] . tel:[phone] Family History Family Member Type Diagnosis Age At Onset No Information Payers Payer name Insurance type Covered constitution party ID Authorvickia bay(s) [facility] [id number] Social History Type Description Quantity Date Captured [...]
--- OUTSIDE RECORDS SUMMARY | 2023-03-24 20:00 | XMS_ITS | Continuity of Care Document ---
Author Organization [facility] Address [address] [place] [address] Phone Care Team Providers Care Appliance Service Representative Name Role Phone Stephen Garcia PT Unavailable [...] Provider Providers Copied on Encounter [facility], [facility] [place], [place], [facility], tel:[phone] No Information 3 Radha Mitchell. [address], [place], [place], [id number] , [place]. tel:[phone] [facility], [facility] [place], [facility], [place] tel:[phone] [facility] Unspecified internal derangement of right kneePain in right knee 3 Maykel Jean Baptisteh. [address] [facility] [place], [facility], [place]. tel:[phone] Referring Provider: Sancho Rodriguez, [address] [facility] [place], [address] . tel:[phone] [facility], [facility] [place], [facility], [place] tel:[phone] [facility] Unspecified internal derangement of right kneePain in right knee 3 Maykel Hearn. [address] [place], [place], [facility], [place]. tel:[phone] Referring Provider: Sancho Rodriguez, [address] [place], [address] . tel:[phone] [facility], [facility] [address], [place], [address], [place] tel:[phone] [facility] Unspecified internal derangement of right kneePain in right knee 3 [facility]. [address], [place], [place], [id number] , . tel:[phone] Referring Provider: Sancho Rodriguez, [address], [place], [address] . tel:[phone] [facility], [address], [place], [address], [place] tel:[phone] [facility] Unspecified internal derangement of right kneePain in right knee 0 3 Maykel Jean Baptisteh. [address], [place], [address], [place]. tel:[phone] Referring Provider: Sancho Rodriguez, [address], [place], [address] . tel:[phone] [facility], [address], [place], [address], [place] tel:[phone] [facility] Unspecified internal derangement of right kneePain in right knee 3 [facility]. [address], [place], [place], [id number] , [place]. tel:[phone] Referring Provider: Sancho Rodriguez, [address], [place], [address] . tel:[phone] [facility], [address], [place], [address], [place] tel:[phone] [facility] Unspecified internal derangement of right kneePain in right knee 3 3 Maykel Jean Baptisteh. [address], [place], [address], [place]. tel:[phone] Referring Provider: Sancho Rodriguez, [address], [place], [address] . tel:[phone] [facility], [address], [place], [address], [place] tel:[phone] [facility] Unspecified internal derangement of right kneePain in right knee 3 [place] Edward. [address], [place], [place], [id number] , . tel:[phone] Referring Provider: Sancho Rodriguez, [address], [place], [address] . tel:[phone] [facility], [address], [place], [address], [place] tel:[phone] [facility] Unspecified internal derangement of right kneePain in right knee Dec- 3 Maykel Hearn. [address], [place], [address], [place]. [phone] Referring Provider: Sancho Rodriguez, [address], [place], [address] . tel:[phone] [facility], [address], [place], [address], [place] tel:[phone] [facility] Unspecified internal derangement of right kneePain in right knee 3 [facility]. [address], [place], [place], [address] , [place]. tel:[phone] Referring Provider: Sancho Rodriguez, [address], [place], [address] . tel:[phone] [facility], [address], [place], [address], [place] tel:[phone] [facility] Unspecified internal derangement of right kneePain in right knee 3 Zac Galloway. . Referring Provider: Sancho Rodriguez, [address], [place], [address] . tel:[phone] [facility], [address], [place], [address], [place] tel:[phone] [facility] Unspecified internal derangement of right kneePain in right knee Dec-0 3 Rebecca Bull. [address], [place], [place], [address] , . tel:[phone] Referring Provider: Sancho Rodriguez, [address], [place], [address] . tel:[phone] [facility], [address], [place], [address], [place] tel:[phone] [facility] Unspecified internal derangement of right kneePain in right knee Nov- 3 Radha Mitchell. [address], [place], [place], [id number] , [place]. [phone] Referring Provider: Sancho Rodriguez, [address], [place], [address] . tel:[phone] Office/outpat ient visit,[facility], [facility], [address], [place], [address], [place] tel:[phone] [facility] Sprain of unspecified site of right knee, initial encounter 3 Joey Kingsley. [address], [place], [place], [address] , [place]. tel:[phone] Referring Provider: Sancho Rodriguez, [address] [place], [address] . tel:[phone] [facility], [address], [place], [address], [place] tel:[phone] [facility] No Information 3 Joey Kingsley. [address], [place], [place], [id number] , [place]. [phone] Referring Provider: Sancho Rodriguez, [address], [place], [address] . tel:[phone] Office/outpat ient visit,[facility], [facility], [address] [employer] [facility], [place], [address], [place] tel:[phone] [facility] Unspecified injury of right lower leg, initial encounter 3 Joey Kingsley. [address] [place], [address] , [place]. [phone] Referring Provider: Sancho Rodriguez, [address] [place], [address] . tel:[phone] Family History Family Member Type Diagnosis Age At Onset No Information Payers Payer name Insurance type Covered libertarian ID Authorvickia bay(s) [facility] [place] [id number] Social History Type Description Quantity Date Captured [...]
[2024-09-07] VITALS (8 sets, daily range): BP systolic 135–158; BP diastolic 93–103; PULSE 100–120; RESP 14–25; TEMP 36.9; O2SAT 96–100; BMI 24.3; BMI 26.9
--- NOTE | 2024-09-07 21:08 | ECG_ITS ---
APPROVED REPORT Exam: Resting ECG HR:120 bpm ECG Measurements Heart Rate 120 AXES MI 129 P 71 QRSd 94 QRS 72 QT 403 T 59 QTc 474 Conclusion SINUS TACHYCARDIA No STEMI Electronically signed by : YONAS ENG, 09/08/2024 00:04:35
--- OUTSIDE RECORDS SUMMARY | 2024-09-07 21:10 | XMS_ITS | Clinical Summary ---
Author Organization [facility] Address [address] [place] [address] Care Team Providers Care Roll Shop Supervisor Name Role Phone Unavailable Primary Care Provider Unavailabl e Source Comments [facility] is fully rolled out with thefollowing exceptions:General Clinical Research [facility] Social History Tobacco Use Types Packs/Day Years Used Date Smoking Tobacco: Never Assessed Sex and Gender Information Value Date Recorded Sex Assigned at Not on file Legal Sex Male 5:11 AM EST Gender Identity Not on file Sexual Orientation Not on file Plan of Treatment Health Maintenance Due Date Last Done Comments MMR IMMUNIZATION (1 of 1 - S tandard series) 1995 DTAP/Tdap/Td IMMUNIZATION (1 - Tdap) 2001 VARICELLA IMMUNIZATION (1 of 2 - 13+ 2-dose series) 2007 HEPATITIS B IMMUNIZATION (1 of 3 - 19+ 3-dose series) 2013 COVID-19 Vaccine (2023-2 5 season) 2023 AMB SEASONAL FLU VACCINE (Se ason Ended) 2024 HIB IMMUNIZATION Aged Out No longer e ligible based on patient's age to complete this topic HPV IMMUNIZATION Aged Out No longer e ligible based on patient's age to complete this topic IPV IMMUNIZATION Aged Out No longer e ligible based on patient's age to complete this topic MCV4 IMMUNIZATION Aged Out No longer eligible based on patient's age to complete this topic MENINGOCOCCAL B VACCINE Aged Out No l onger eligible based on patient's age to complete this topic PNEUMOCOCCAL IMMUNIZATION Aged Out No longer eligible based on patient's age to complete this topic Respiratory Syncytial Virus (RSV) <20mo Aged Out No longer eligible b ased on patient's age to complete this topic
--- OUTSIDE RECORDS SUMMARY | 2024-09-07 21:10 | XMS_ITS | Clinical Summary ---
Author Organization [facility] Address [address] [place] [address] Phone Care Team Providers Care Anchor Operator Name Role Phone Martín Cifuentesudzackary Cruz DPM Unavailable Unav ailable Allergies Active Allergy Reactions Criticality Noted Date Comments Ketoconazole Rash 10/21/2016 Medications terbinafine HCl (LAMISIL) 1 % Top CreamIndication s:Tinea versicolor Apply topically daily. 60 g 1 8 Active ondansetron (ZOFRAN-ODT) 4 mg Oral Tablet, Rapid DissolveIndicat ions:Gastroente ritis Take 4 mg by mouth every 8 hours as needed for Nausea. Active Active Problems Patient Care Coordination No te Formatting of this note migh t be different from the original. Depression screen: 02/22/14 No known active problems Encounters Date Type Department Care Team Description 09/07/2024 Telephone [facility] [address] [place] [id number] Ernesto Ricardo, DO Other from Last 3 Months Family History Relation Name Status Comments Father Alive Mother Alive Social History Tobacco Use Types Packs/Day Years Used Date Smoking Tobacco: Never Smokeless Tobacco: Current Chew Tobacco Cessation:Ready to Q uit: No; Counseling Given: Yes Alcohol Use Standard Drinks/Week Comments No 0 (1 standard drink = 0.6 oz pur e alcohol) PHQ-2 Answer Date Recorded PHQ-2 Score 0 08/17/2018 Sex and Gender Information Value Date Recorded Sex Assigned at Not on file Legal Sex Male 1:57 AM EDT Gender Identity Not on file Sexual Orientation Not on file Obstetrics History Last Filed Vital Signs Vital Sign Reading Time Taken Comments Blood Pressure 124/80 12/09/2017 12:52 PM EDT Pulse 76 12/09/2017 12:52 PM EDT Temperature 36.2 C (97.1 F) 12/09/2017 12:52 PM EDT Respiratory Rate 16 11/29/2014 10:50 AM EDT Oxygen Saturation - - Inhaled Oxygen Concentration - - Weight 83.9 kg (185 lb) 12/09/2017 12:52 PM EDT Height 175.3 cm (5' 9 ) 12/09/2017 12:52 PM EDT Body Mass Index 27.32 12/09/2017 12:52 PM EDT Plan of Treatment Health Maintenance Due Date Last Done Comments Annual Wellness Exam 1997 DTaP/TDaP/Td (6 - Tdap) 2005 07/29/19 00, 04/20/1995, 1994, Additional history exists COVID-19 Vaccine ( season) 2023 04/29/2021, 04/08/2021 Influenza Vaccine (Season Ended) 2024 03/20/2014 (Declined) Hepatitis B Vaccine Completed 01/26/1995, 1994, 1994 Meningococcal B Vaccine Aged Out No l onger eligible based on patient's age to complete this topic Pneumococcal Vaccine 0-49 Aged Out No longer eligible based on patient's age to complete this topic Goals Goal Patient Goal Type Associated Problems Recent Progress Patient-Stated? Author Maintain a healthy diet, exercise regularly and maintain an ideal body weight General No Gage Wang RMA Stay Tobacco Free Lifestyle Gage Hernandez RMA Care Teams Anchor Operator Relationship Specialty Start Date End Date Kedar Cifuentes DPM Higher Education Administrator-Surgery, Foot [facility]le 12/07/14
--- OUTSIDE RECORDS SUMMARY | 2024-09-07 21:10 | XMS_ITS | Encounter Summary ---
Author Organization [place] [address] Care Team Providers Care Roofing Contractor Name Role Phone Kedar Cifuentes DPM Unavailable Unav ailable Reason for Visit * Reason Onset Date Comments Other 09/07/2024 Encounter Details Date Type Department Care Team (Late st Contact Info) Description 09/07/2024 Telephone [facility] [address] [place] [phone] Ernesto Ricardo DO [address] [place] [address] Other Social History Tobacco Use Types Packs/Day Years Used Date Smoking Tobacco: Never Smokeless Tobacco: Current Chew Alcohol Use Standard Drinks/Week Comments No 0 (1 standard drink = 0.6 oz pur e alcohol) PHQ-2 Answer Date Recorded PHQ-2 Score 0 08/17/2018 Sex and Gender Information Value Date Recorded Sex Assigned at Not on file Legal Sex Male 1:57 AM EDT Gender Identity Not on file Sexual Orientation Not on file documented as of this encounter Miscellaneous Notes * Telephone Encounter - Nissa Coreas - 09/07/2024 3:00 PM EDT [facility] * Telephone Encounter - Nissa Coreas - 09/07/2024 3:00 PM EDT Ernesto Ricardo DO Brooks, Elizabeth A family friend wanted to get in to see me as a PCP. Can you reach out to the patient and offer nickie new patient appointment in towards the end of August or early September? documented in this encounter Plan of Treatment Not on file documented as of this encounter Goals Goal Patient Goal Type Associated Problems Recent Progress Patient-Stated? Author Maintain a healthy diet, exercise regularly and maintain an ideal body weight General Gage Hernandez RMA Stay Tobacco Free Lifestyle Gage Hernandez RMA documented as of this encounter Visit Diagnoses Not on filedocumented in this encounter Care Teams Roofing Contractor Relationship Specialty Start Date End Date Kedar Cifuentes DPM Pocketed Spring Machine Operator-Surgery, Foot [facility] Ankle 12/07/14 documented as of this encounter
--- NOTE | 2024-09-07 21:16 | CT_ITS ---
PROCEDURE INFORMATION: Exam: CT Head Without Contrast Exam date and time: 09/07/2024 9:32 PM Age: 29 years old Clinical indication: Other: Seizure; Additional info: New seizure TECHNIQUE: Imaging protocol: Computed tomography of the head without contrast. Radiation optimization: All CT scans at this facility use at least one of these dose optimization techniques: automated exposure control; mA and/or kV adjustment per patient size (includes targeted exams where dose is matched to clinical indication); or iterative reconstruction. COMPARISON: No relevant prior studies available. FINDINGS: Brain: Nonspecific stenosis of the anterior horn of the right lateral ventricle. No hemorrhage. Unremarkable white matter. No mass effect. Cerebral ventricles: No ventriculomegaly. Paranasal sinuses: Visualized sinuses are unremarkable. No fluid levels. Mastoid air cells: Visualized mastoid air cells are well aerated. Bones: Unremarkable. No acute fracture. Soft tissues: Unremarkable. IMPRESSION: Nonspecific stenosis of the anterior horn of the right lateral ventricle. Recommend further evaluation with MRI of the brain with and without contrast.
--- NOTE | 2024-09-07 21:17 | HMH.EDGENADL ---
Discharge Plan Disposition Patient Disposition: Admitted Condition: Fair Clinical Impressions Clinical Impression: Alcohol withdrawal seizure, Alcoholic hepatitis, Hypokalemia, Abnormal brain CT Discharge ED Provider: Elidia Coreas General Adult HPI <Jill Olea (ED), TIRE REGROOVING MACHINE OPERATOR - Last Filed: 09/07/24 21:46> General Chief complaint: Seizure Stated complaint: right sided numbness,weakness Time Seen by Provider: 09/07/24 21:07 History of Present Illness HPI narrative: 29-year-old male presents to the ED today for complaint of 30 seconds seizure prior to arrival. Mom states that his eyes rolled in the back of his head and he was not responsive for approximately 30 seconds. Mom states that he had taken his hydroxyzine and was asleep most of the day. He woke up without 2015 and when he woke up is when he had a seizure. Mom states he drinks daily a pint of bourbon. His last drink was reported as yesterday. This is his first seizure. Mom believes he is going through withdrawals. He has been in the [facility] for rehab before but once he got out he did not do outpatient care and he started drinking again. Today he complains of headache and weakness in his right arm and leg. He does have history of hypertension, substance abuse, anxiety, depression, and OCD. He is answering questions appropriately but a little slow to respond. He does follow directions and answer questions appropriately. He does also complain of chest pain. Related Data Previous Rx's ?Medication ?Instructions ?Recorded montelukast 10 mg tablet 10 mg PO DAILY #30 tabs 08/25/23 cholecalciferol (vitamin D3) 125 125 mcg PO DAILY #30 tabs 09/17/23 mcg (5,000 unit) tablet cyanocobalamin (vitamin B-12) 1,000 mcg PO DAILY #30 tabs 09/17/23 1,000 mcg tablet desvenlafaxine succinate 100 mg 100 mg PO DAILY #30 tabs 04/05/24 tablet,extended release 24 hr (Pristiq) naltrexone 50 mg tablet See Rx Instructions .Route 04/05/24 .COMPLEX #30 tabs hydroxyzine pamoate 25 mg capsule See Rx Instructions .Route 04/13/24 .COMPLEX #60 caps ondansetron HCl 4 mg tablet 4 mg PO Q8H PRN nausea and 04/13/24 vomiting #20 tabs lisinopril 5 mg tablet See Rx Instructions .Route 08/12/24 .COMPLEX #40 tabs Allergies Allergy/AdvReac Type Severity Reaction Status Date / Time No Known Allergies Allergy Verified 05/10/24 14:06 [facility] <Jill Olea (ED), TIRE REGROOVING MACHINE OPERATOR - Last Filed: 09/07/24 21:46> [facility] Disclaimer: The information contained in this section may have been updated after the patient was seen, as this information can be updated by other users. Medical History History of seizure due to alcohol withdrawal Insomnia, unspecified Neto has difficulty staying asleep. 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 Elevated rheumatoid factor Vitamin B12 deficiency Right wrist pain Essential hypertension Alcohol dependence AA (alcohol abuse) Shortness of breath Anxiety Depressed Surgical History No history of previous surgery Family History Other Cancer Social History Smoking Status: Current every day smoker tobacco type: cigarettes and smokeless tobacco alcohol intake: former ([facility] in early recovery; detoxed on 09/01 to 09/07.) substance use type: denies use current occupational status: employed Travel in the last 8 weeks?: None household members: family housing: house Have you lived/traveled outside US in past 30 days?: No Contact w/someone who lives/traveled outside US past 30 days?: No Exposure to someone with infectious disease in past 14 days?: No Do you have a fever (greater than 100.4 F or 38 C)?: No Have you tested positive for COVID-19?: No Exposed to someone with COVID-19 in past 14 days?: No Do you have a sore throat?: No Do you have a cough?: No Do you have any weakness?: No Do you have any diarrhea?: No Are you experiencing any unusual bleeding?: No Do you have any muscle aches/pain?: No Do you have any abdominal pain?: No Are you experiencing loss of taste or smell?: No Other Medical History Have you received the Pneumonia Vaccine: No <Jill Olea (ED), TIRE REGROOVING MACHINE OPERATOR - Last Filed: 09/07/24 21:46> ROS Obtained: Yes Systems reviewed as appropriate & no additional complaints except as documented Constitutional Constitutional: Reports as per HPI Physical Exam <Jill Limagisellmatthias (ED), TIRE REGROOVING MACHINE OPERATOR - Last Filed: 09/07/24 21:46> General General appearance: alert and anxious Head Head exam: normocephalic Eye Eye exam: Present PERRL and EOMI ENT ENT exam: Present normal oropharynx and mucous membranes moist Neck Neck exam: Present full ROM and trachea midline Respiratory Respiratory exam: Present normal lung sounds bilaterally Cardiovascular Cardiovascular exam: Present regular rate, normal rhythm, normal heart sounds, +S1 and +S2 Abdominal Exam Abdominal exam: Present soft and normal bowel sounds Extremities Exam Extremities exam: Present full ROM and normal capillary refill Neurological Exam Neurological exam: Present alert, oriented X3 and normal gait Psychiatric Psychiatric exam: Present anxious Skin Skin exam: Present warm, dry and intact Medical Decision Making <Jill Limagisellmatthias (ED), TIRE REGROOVING MACHINE OPERATOR - Last Filed: 09/07/24 21:46> Medical Records Screening: Per USPSTF and CDC recommendations, given the prevalence of disease in our region, it is our hospital?s policy to screen for HIV and viral Hepatitis for all patients aged 18 and over and those with ongoing risk factors. Sandro Inquiry Pt receiving controlled substance: No Sandro was queried for this patient: No Vital Signs: 09/07/24 21:19 09/07/24 22:00 09/07/24 22:30 Temperature 98.5 F Temperature Source Oral Pulse Rate 102 H 112 H Pulse Rate [Left] 107 H Respiratory Rate 16 14 24 Blood Pressure 135/95 H 148/103 H Blood Pressure [Right Arm] 158/99 H Blood Pressure Mean 108 Blood Pressure Mean [Right Arm] 118 Blood Pressure Source Blood Pressure Source [Right Arm] Automatic Cuff Blood Pressure Position Blood Pressure Position [Right Arm] Supine 02 Sat by Pulse Oximetry 100 99 100 Oxygen Delivery Method Room Air 09/07/24 23:00 09/07/24 23:24 09/07/24 23:30 Temperature 98.5 F Temperature Source Oral Pulse Rate 100 H 109 H Pulse Rate [Left] Respiratory Rate 14 14 Blood Pressure 149/96 H 149/96 H Blood Pressure [Right Arm] Blood Pressure Mean Blood Pressure Mean [Right Arm] Blood Pressure Source Automatic Cuff Blood Pressure Source [Right Arm] Blood Pressure Position Sitting Blood Pressure Position [Right Arm] 02 Sat by Pulse Oximetry 96 98 Oxygen Delivery Method Room Air Lab Data Lab Results 09/07/24 21:20: WBC 11.1 H, RBC 5.26, Hgb 17.9, Hct 52.1 H, MCV 99.0 H, MCH 34.0 H, MCHC 34.4, RDW 12.8, Plt Count 382, MPV 8.8, Neut % (Auto) 33.0 L, Lymph % (Auto) 56.2 H, Isabella % (Auto) 8.1, Eos % (Auto) 1.3, Baso % (Auto) 0.9, Neut # (Auto) 3.6, Lymph # (Auto) 6.2 H, Isabella # (Auto) 0.9, Eos # (Auto) 0.1, Baso # (Auto) 0.1, Total Counted 100, Neutrophils % (Manual) 37 L, Lymphocytes % (Manual) 53 H, Monocytes % (Manual) 5, Eosinophils % (Manual) 4 H, Basophils % (Manual) 1.0, Nucleated RBCs 1, Platelet Estimate Normal, Macrocytosis 1+, PT 11.3, INR 1.02, APTT 24.4, Sodium 140, Potassium 3.0 L, Chloride 98, Carbon Dioxide 18 L, Anion Gap 27.0 H, BUN 6 L, Creatinine 0.80, Estimated Creat Clear 143, Estimated GFR 114, Est GFR ( Amer) 137, Glucose 86, Calcium 10.0, Phosphorus 2.6, Magnesium 1.7, Total Bilirubin 1.1, AST 265 H, ALT 112 H, Alkaline Phosphatase 77, Troponin I < 0.01, Total Protein 8.4 H, Albumin 5.1 H, Globulin 3.3 H, Albumin/Globulin Ratio 1.5, Salicylates < 1.0 L, Acetaminophen < 10 L, Plasma/Serum Alcohol 325 H, HCV Ab KHUSHI w/Rflx PCR Qn Negative 09/07/24 22:10: Lactate 9.3 H 09/07/24 22:35: VBG pH 7.37, VBG pCO2 28.3 L, VBG pO2 103.7 H, VBG HCO3 16.1 L, VBG Total CO2 17.0 L, VBG O2 Saturation 97.9 H, VBG Base Excess -9.1 L, VBG Lactic Acid 9.8 H 09/07/24 21:20 09/07/24 21:20 Orders (Tests/Meds): ED MEDICATIONS Generic Name Dose Route Start Last Admin Trade Name Chad PRN Reason Stop Dose Admin Diazepam 10 mg 09/07/24 21:11 Diazepam 10mg/2ml Syringe IV 10/07/24 21:10 Q1HP PRN CIWA >16 Diazepam 5 mg 09/07/24 21:11 09/07/24 22:01 Diazepam 5mg Tablet PO 10/07/24 21:10 2.5 mg Q1HP PRN Administration CIWA Score 8-15 Diazepam 5 mg 09/07/24 21:11 Diazepam 5mg Tablet PO 10/07/24 21:10 Q6HP PRN CIWA 2-7 Diazepam 2.5 mg 09/07/24 21:37 Diazepam 10mg/2ml Syringe IV 10/07/24 21:36 NEEDED PRN Seizures Folic Acid 1 mg 09/08/24 09:00 09/07/24 21:59 Folic Acid 1mg Tablet PO 10/08/24 08:59 1 mg DAILY RIZWANA Administration Heparin Sodium (Porcine) 5,000 unit 09/08/24 09:00 Heparin Sodium 5,000 Unit/Ml Vial SUBCUT 10/08/24 08:59 TID RIZWANA Multivitamins 10 ml/ Thiamine 1,015 mls @ 150 mls/hr 09/07/24 21:55 09/07/24 21:59 HCl 100 mg/ Magnesium Sulfate IV 09/08/24 04:40 150 mls/hr 2 gm/ Lactated Ringer's .Q6H46M RIZWANA Administration Multivitamins 1 each 09/08/24 17:00 Multivitamin Tablet PO 10/08/24 16:59 1700 COUNTS INCLUDE 234 BEDS AT THE [facility] Thiamine HCl 100 mg 09/08/24 09:00 Thiamine 100mg Tablet PO 09/10/24 09:01 DAILY RIZWANA Discontinued Medications Generic Name Dose Route Start Last Admin Trade Name Venturaq PRN Reason Stop Dose Admin Lactated Ringer's 1,000 mls @ 999 mls/hr 09/07/24 22:15 09/07/24 22:40 Lactated Ringer's 1000 Ml Bag IV 09/07/24 23:15 999 mls/hr .Q1H1M ONE Administration Potassium Chloride/Water 100 mls @ 100 mls/hr 09/07/24 22:15 09/07/24 22:40 Potassium Chloride 10meq/100ml Ivpb IV 09/07/24 23:14 100 mls/hr ONCE ONE Administration Potassium Chloride 60 meq 09/07/24 21:46 09/07/24 21:54 Potassium Chloride 20meq Tab PO 09/07/24 21:47 60 meq ONCE ONE Administration Potassium Chloride 40 meq 09/07/24 22:15 09/07/24 22:27 Potassium Chloride 20meq Tab PO 09/07/24 22:16 Not Given ONCE ONE ORDERS Category Date Time Status CT head/brain wo con Stat Cat Scan 09/07/24 21:16 Completed Acetaminophen Stat Lab 09/07/24 21:20 Completed Activated Partial Thrombo Time Routine Lab 09/07/24 21:20 Completed Complete Blood Count Auto Diff AMLAB Lab 09/08/24 06:00 Ordered Complete Blood Count Auto Diff Routine Lab 09/07/24 21:20 Completed Comprehensive Metabolic Panel AMLAB Lab 09/08/24 06:00 Ordered Comprehensive Metabolic Panel Routine Lab 09/07/24 21:20 Completed Drug Screen,Urine Routine Lab 09/07/24 Completed Ethyl Alcohol Stat Lab 09/07/24 21:20 Completed HIV Combo Stat Lab 09/07/24 21:20 Received Hepatitis C Ab Qual. W/ RFX Stat Lab 09/07/24 21:20 Completed Lactic Acid Stat Lab 09/07/24 22:10 Completed Magnesium AMLAB Lab 09/08/24 06:00 Ordered Magnesium Routine Lab 09/07/24 21:20 Completed Phosphorous Routine Lab 09/07/24 21:20 Completed Prothrombin Time INR Routine Lab 09/07/24 21:20 Completed Salicylate Stat Lab 09/07/24 21:20 Completed Trop I [Troponin I] Stat Lab 09/07/24 21:20 Completed Troponin I Q3H Lab 09/08/24 00:30 Ordered Troponin I Q3H Lab 09/08/24 03:30 Ordered UA [Urinalysis and Microscopic] Stat Lab 09/07/24 Completed VBG [Venous Blood Gas] Stat RT 09/07/24 22:35 Completed Medical Decision Narrative: patient is a 29-year-old male presenting to the emergency department for evaluation of new onset seizure, chest pain and right sided weakness. Patient is hemodynamically stable and nontoxic-appearing upon arrival, afebrile. Differential diagnosis includes withdrawal seizure, substance abuse, among other. Workup will be conducted with hematologic labs, specific imaging. Initial inventions include crystalloid bolus. We will do the CIWA protocol and scan patient's head. Patient's family has already asked to have patient put inpatient for rehab at a place where he can do outpatient as well. Discussed this with Dr. Coreas who will take over patient. Patient is stable at this time. <Elidia Coreas, DO - Last Filed: 09/07/24 23:58> Vital Signs: 09/07/24 21:19 09/07/24 22:00 09/07/24 22:30 Temperature 98.5 F Temperature Source Oral Pulse Rate 102 H 112 H Pulse Rate [Left] 107 H Respiratory Rate 16 14 24 Blood Pressure 135/95 H 148/103 H Blood Pressure [Right Arm] 158/99 H Blood Pressure Mean 108 Blood Pressure Mean [Right Arm] 118 Blood Pressure Source Blood Pressure Source [Right Arm] Automatic Cuff Blood Pressure Position Blood Pressure Position [Right Arm] Supine 02 Sat by Pulse Oximetry 100 99 100 Oxygen Delivery Method Room Air 09/07/24 23:00 09/07/24 23:24 09/07/24 23:30 Temperature 98.5 F Temperature Source Oral Pulse Rate 100 H 109 H Pulse Rate [Left] Respiratory Rate 14 14 Blood Pressure 149/96 H 149/96 H Blood Pressure [Right Arm] Blood Pressure Mean Blood Pressure Mean [Right Arm] Blood Pressure Source Automatic Cuff Blood Pressure Source [Right Arm] Blood Pressure Position Sitting Blood Pressure Position [Right Arm] 02 Sat by Pulse Oximetry 96 98 Oxygen Delivery Method Room Air Lab Data Lab Results 09/07/24 21:20: WBC 11.1 H, RBC 5.26, Hgb 17.9, Hct 52.1 H, MCV 99.0 H, MCH 34.0 H, MCHC 34.4, RDW 12.8, Plt Count 382, MPV 8.8, Neut % (Auto) 33.0 L, Lymph % (Auto) 56.2 H, Isabella % (Auto) 8.1, Eos % (Auto) 1.3, Baso % (Auto) 0.9, Neut # (Auto) 3.6, Lymph # (Auto) 6.2 H, Isabella # (Auto) 0.9, Eos # (Auto) 0.1, Baso # (Auto) 0.1, Total Counted 100, Neutrophils % (Manual) 37 L, Lymphocytes % (Manual) 53 H, Monocytes % (Manual) 5, Eosinophils % (Manual) 4 H, Basophils % (Manual) 1.0, Nucleated RBCs 1, Platelet Estimate Normal, Macrocytosis 1+, PT 11.3, INR 1.02, APTT 24.4, Sodium 140, Potassium 3.0 L, Chloride 98, Carbon Dioxide 18 L, Anion Gap 27.0 H, BUN 6 L, Creatinine 0.80, Estimated Creat Clear 143, Estimated GFR 114, Est GFR ( Amer) 137, Glucose 86, Calcium 10.0, Phosphorus 2.6, Magnesium 1.7, Total Bilirubin 1.1, AST 265 H, ALT 112 H, Alkaline Phosphatase 77, Troponin I < 0.01, Total Protein 8.4 H, Albumin 5.1 H, Globulin 3.3 H, Albumin/Globulin Ratio 1.5, Salicylates < 1.0 L, Acetaminophen < 10 L, Plasma/Serum Alcohol 325 H, HCV Ab KHUSHI w/Rflx PCR Qn Negative 09/07/24 22:10: Lactate 9.3 H 09/07/24 22:35: VBG pH 7.37, VBG pCO2 28.3 L, VBG pO2 103.7 H, VBG HCO3 16.1 L, VBG Total CO2 17.0 L, VBG O2 Saturation 97.9 H, VBG Base Excess -9.1 L, VBG Lactic Acid 9.8 H Orders (Tests/Meds): ED MEDICATIONS Generic Name Dose Route Start Last Admin Trade Name Freq PRN Reason Stop Dose Admin Diazepam 10 mg 09/07/24 21:11 Diazepam 10mg/2ml Syringe IV 10/07/24 21:10 Q1HP PRN CIWA >16 Diazepam 5 mg 09/07/24 21:11 09/07/24 22:01 Diazepam 5mg Tablet PO 10/07/24 21:10 2.5 mg Q1HP PRN Administration CIWA Score 8-15 Diazepam 5 mg 09/07/24 21:11 Diazepam 5mg Tablet PO 10/07/24 21:10 Q6HP PRN CIWA 2-7 Diazepam 2.5 mg 09/07/24 21:37 Diazepam 10mg/2ml Syringe IV 10/07/24 21:36 NEEDED PRN Seizures Folic Acid 1 mg 09/08/24 09:00 09/07/24 21:59 Folic Acid 1mg Tablet PO 10/08/24 08:59 1 mg DAILY RIZWANA Administration Heparin Sodium (Porcine) 5,000 unit 09/08/24 09:00 Heparin Sodium 5,000 Unit/Ml Vial SUBCUT 10/08/24 08:59 TID RIZWANA Multivitamins 10 ml/ Thiamine 1,015 mls @ 150 mls/hr 09/07/24 21:55 09/07/24 21:59 HCl 100 mg/ Magnesium Sulfate IV 09/08/24 04:40 150 mls/hr 2 gm/ Lactated Ringer's .Q6H46M RIZWANA Administration Multivitamins 1 each 09/08/24 17:00 Multivitamin Tablet PO 10/08/24 16:59 1700 RIZWANA Thiamine HCl 100 mg 09/08/24 09:00 Thiamine 100mg Tablet PO 09/10/24 09:01 DAILY RIZWANA Discontinued Medications Generic Name Dose Route Start Last Admin Trade Name Freq PRN Reason Stop Dose Admin Lactated Ringer's 1,000 mls @ 999 mls/hr 09/07/24 22:15 09/07/24 22:40 Lactated Ringer's 1000 Ml Bag IV 09/07/24 23:15 999 mls/hr .Q1H1M ONE Administration Potassium Chloride/Water 100 mls @ 100 mls/hr 09/07/24 22:15 09/07/24 22:40 Potassium Chloride 10meq/100ml Ivpb IV 09/07/24 23:14 100 mls/hr ONCE ONE Administration Potassium Chloride 60 meq 09/07/24 21:46 09/07/24 21:54 Potassium Chloride 20meq Tab PO 09/07/24 21:47 60 meq ONCE ONE Administration Potassium Chloride 40 meq 09/07/24 22:15 09/07/24 22:27 Potassium Chloride 20meq Tab PO 09/07/24 22:16 Not Given ONCE ONE ORDERS Category Date Time Status CT head/brain wo con Stat Cat Scan 09/07/24 21:16 Completed Acetaminophen Stat Lab 09/07/24 21:20 Completed Activated Partial Thrombo Time Routine Lab 09/07/24 21:20 Completed Complete Blood Count Auto Diff AMLAB Lab 09/08/24 06:00 Ordered Complete Blood Count Auto Diff Routine Lab 09/07/24 21:20 Completed Comprehensive Metabolic Panel AMLAB Lab 09/08/24 06:00 Ordered Comprehensive Metabolic Panel Routine Lab 09/07/24 21:20 Completed Drug Screen,Urine Routine Lab 09/07/24 Completed Ethyl Alcohol Stat Lab 09/07/24 21:20 Completed HIV Combo Stat Lab 09/07/24 21:20 Received Hepatitis C Ab Qual. W/ RFX Stat Lab 09/07/24 21:20 Completed Lactic Acid Stat Lab 09/07/24 22:10 Completed Magnesium AMLAB Lab 09/08/24 06:00 Ordered Magnesium Routine Lab 09/07/24 21:20 Completed Phosphorous Routine Lab 09/07/24 21:20 Completed Prothrombin Time INR Routine Lab 09/07/24 21:20 Completed Salicylate Stat Lab 09/07/24 21:20 Completed Trop I [Troponin I] Stat Lab 09/07/24 21:20 Completed Troponin I Q3H Lab 09/08/24 00:30 Ordered Troponin I Q3H Lab 09/08/24 03:30 Ordered UA [Urinalysis and Microscopic] Stat Lab 09/07/24 Completed VBG [Venous Blood Gas] Stat RT 09/07/24 22:35 Completed ECG Data Tracing #1: I reviewed this ECG and interpreted as documented below: Sinus tachycardia at a ventricular to [address] changes concerning for ischemia. Normal intervals ECG initial impression date: 09/07/24 ECG initial impression time: 21:09 Medical Decision Narrative: patient is a 29-year-old male presenting to the emergency department for evaluation of new onset seizure, chest pain and right sided weakness. Patient is hemodynamically stable and nontoxic-appearing upon arrival, afebrile. Differential diagnosis includes withdrawal seizure, substance abuse, among other. Workup will be conducted with hematologic labs, specific imaging. Initial inventions include crystalloid bolus. We will do the CIWA protocol and scan patient's head. Patient's family has already asked to have patient put inpatient for rehab at a place where he can do outpatient as well. Discussed this with Dr. Coreas who will take over patient. Patient is stable at this time. DO Joss: I was consulted by the SCOTTY, and we discussed the complexity of the problems being addressed. I approved the treatment and management plan for this patient's care in the emergency department, thus performing a substantive portion of the medical decision making. Patient is neurologically intact on my assessment, though anxious appearing and tremulous. I feel he is in acute alcohol withdrawals. He does have a detectable alcohol level, but he denies recent intake of alcohol. Labs demonstrated leukocytosis and lactic acidosis, I feel this is because of his seizure that he had. No infectious sources noted as of late. He also has hypokalemia and alcoholic hepatitis on lab evaluation. Potassium repletion was ordered as well as thiamine, folate, and rally pack. CIWA protocol was ordered. Ultimately, I feel the patient would benefit from admission for alcohol detox. I had an indirect discussion with the hospitalist who admitted the patient in stable condition. Elidia Coreas DO Critical Care <Jill Olea (ED), TIRE REGROOVING MACHINE OPERATOR - Last Filed: 09/07/24 21:46> Critical Care Time Critical Care Time: No <Elidia Coreas DO - Last Filed: 09/07/24 23:58> Critical Care Time Critical Care Time: Yes Attestation: On 09/07/24, the high probability of a clinically significant, sudden or life threatening deterioration of the following system(s) required my full and direct attention, intervention and personal management. The time I documented below is in addition to time spent performing reported procedures but includes the following listed in this critical care notation. Total Time Total Critical Care Time: 35
[2024-09-07 21:38] LABS: Basophils # 0.1 K/mm3 (0-0.2); Basophils % 0.9 % (0.1-2.0); Eosinophils # 0.1 Kmm3 (0.0-0.4); Eosinophils % 1.3 % (0.1-12.0); Hematocrit 52.1 % (42.0-52.0); Hemoglobin 17.9 g/dL (14.1-18.0); Immature Granulocytes # 0.06 10^3uL; Immature Granulocytes % 0.5 %; Lymphocytes # 6.2 K/mm3 (0.7-4.5); Lymphocytes % 56.2 % (10-50); Mean Corpuscular HGB Conc 34.4 g/dL (31.8-35.4); Mean Platelet Volume 8.8 fl (7.4-10.4); Monocytes # 0.9 K/mm3 (0.1-1.0); Monocytes % 8.1 % (1.7-9.3); Neutrophils # 3.6 K/mm3 (1.8-7.8); Nucleated Red Blood Cells # 0.02 10^3/uL; Nucleated Red Blood Cells % 0.2 %; Platelet Count 382 K/mm3 (142-424); Red Blood Count 5.26 M/mm3 (4.60-6.20); Red Cell Distribution Width 12.8 % (11.5-17.5); Red Cell Distribution Width-SD 46.5 fL; White Blood Count 11.1 K/mm3 (4.8-10.8)
[2024-09-07 21:40] LABS: MANUAL DIFFERENTIAL MANUAL DIFFERENTIAL (MANUAL DIFF)
[2024-09-07 21:43] LABS: Alanine Aminotransferase 112 U/L (12-78); Albumin Level 5.1 g/dl (3.5-5.0); Albumin/Globulin Ratio 1.5 (1.1-1.8); Alkaline Phosphatase 77 U/L (38-126); Aspartate Amino Transferase 265 U/L (17-59); Bilirubin,Total 1.1 mg/dl (0.2-1.3); Blood Urea Nitrogen 6 mg/dl (9-20); Carbon Dioxide 18 mmol/L (22.0-30.0); Chloride 98 mmol/L (98-107); Creatinine Clearance Estimated 143 mL/min (50-200); Estimated Glomerular Filt Rate 114 ml/min (>60); GFR (African American) 137 ML/MIN (>60); Globulin 3.3 g/dL (1.3-3.2); Glucose 86 mg/dl (74-100); Magnesium 1.7 mg/dl (1.6-2.3); Phosphorous 2.6 mg/dl (2.5-4.5); Sodium 140 mmol/L (136-145); Total Protein,Serum 8.4 g/dl (6.3-8.2)
[2024-09-07 21:45] LABS: Acetaminophen < 10 ug/ml (10-30); Activated Partial Thrombo Time 24.4 seconds (22.8-30.6); INR 1.02 (0.9-1.1); Prothrombin Time 11.3 seconds (10.1-12.5); Salicylate < 1.0 mg/dL (2.0-20.0)
[2024-09-07 21:52] LABS: Microscopic, Urine URINE MICROSCOPIC (MICROSCOPIC)
[2024-09-07] MEDS: POTASSIUM CHLORIDE 20MEQ TAB 60 MEQ PO (21:54)
[2024-09-07 21:56] LABS: Appearance,Urine CLEAR (Clear); Bilirubin,Urine Negative (Negative); Blood, Urine Negative (Negative); Color,Urine YELLOW (Yellow); Glucose,Urine (UA) Negative (Negative); Ketones,Urine 3+ (Negative); Leukocyte Esterase,Urine Negative (Negative); Nitrate,Urine Negative (Negative); Protein,Urine 1+ (Negative); Urobilinogen,Urine 0.2 EU/dl (0.2)
[2024-09-07 21:56] LABS: Troponin I < 0.01 ng/ml (0.00-0.034)
[2024-09-07] MEDS: MVI, ADULT NO.1 WITH VIT K 10 ML, THIAMINE HCL 100 MG, MAGNESIUM SULFATE 2 GM in LACTAT... 150 ML IV (21:59)
[2024-09-07] MEDS: FOLIC ACID 1MG TABLET 1 MG PO (21:59)
[2024-09-07] MEDS: diazePAM 5MG TABLET 5 MG PO (22:01)
[2024-09-07 22:07] LABS: Amphetamine/Metha Screen,Urine Negative ng/ml (<1000)
[2024-09-07 22:08] LABS: Barbiturates Screen,Urine Negative ng/ml (<200); Benzodiazepines Screen,Urine Negative ng/ml (<200)
[2024-09-07 22:09] LABS: Cannabinoid Screen,Urine Negative ng/ml (<50); Cocaine Screen,Urine Negative ng/ml (<300)
[2024-09-07 22:10] LABS: Methadone Screen,Urine Negative ng/ml (<300)
[2024-09-07 22:11] LABS: Opiate Screen,Urine Negative ng/ml (<300); Phencyclidine Screen,Urine Negative ng/ml (<25)
[2024-09-07 22:13] LABS: Ethyl Alcohol 325 mg/dl (0-10)
[2024-09-07 22:17] LABS: Bacteria,Urine Trace /lpf; Mucus,Urine 1+ /lpf; Squamous Epithelial Cell,Urine Occasional #/hpf (0-5)
[2024-09-07 22:27] LABS: Eosinophils % 4 % (0-3); Lymphocytes % 53 % (10-50); Macrocytosis 1+; Monocytes % 5 % (2-9); Neutrophils % 37 % (42-76); Nucleated Red Blood Cells 1; Platelet Estimate Normal; Total Cells Counted 100
[2024-09-07 22:33] LABS: Lactic Acid 9.3 mmol/L (0.7-2.1)
--- NOTE | 2024-09-07 22:34 | PC.NURSE ---
Joss MARIE notified of lactic acid of 9.3.
[2024-09-07 22:38] LABS: Hepatitis C Ab Qual. W/ RFX NEGATIVE (Negative)
[2024-09-07] MEDS: KCl 10mEq/100ml 100 ML 100 MEQ IV (22:40)
[2024-09-07] MEDS: LACTATED RINGERS 1000ML 1,000 ML 999 ML IV (22:40)
[2024-09-07 22:52] LABS: VBG Base Excess -9.1 mmol/L (-2.4-2.3); VBG HCO3 16.1 mmol/L (23-30); VBG Oxygen Saturation 97.9 % (50-70); VBG PCO2 28.3 mmol/L (35-51); VBG PH 7.37 mmol/L (7.31-7.41); VBG PO2 103.7 mmol/L (28-40)
[2024-09-07 23:00] LABS: Lactate Venous 9.8 mmol/L (0.4-2.0)
--- NOTE | 2024-09-07 23:29 | EXP.HP ---
History of Present Illness *Admission Date: 09/07/24 *Reason for visit:: Seizure *History of present illness: Patient is a 29-year-old male with past medical history of alcohol abuse, depression anxiety OCD substance abuse hypertension who presents to the hospital due to seizures. According to the patient he has been trying to quit alcohol, his last use of alcohol was yesterday. Patient had an episode of vomiting, nonbloody. Patient has chills, denies hallucinations. Patient had a generalized seizure. Patient drinks a pint of bourbon every day. He otherwise denied fevers chills diarrhea constipation dysuria. [facility] Disclaimer: The information contained in this section may have been updated after the patient was seen, as this information can be updated by other users. Medical History History of seizure due to alcohol withdrawal Insomnia, unspecified Neto has difficulty staying asleep. Obsessive-compulsive disorder, unspecified Neto reported having OCD when a child and needing things neat and occupational therapist aide. Elevated rheumatoid factor Vitamin B12 deficiency Right wrist pain Essential hypertension Alcohol dependence AA (alcohol abuse) Shortness of breath Anxiety Depressed Surgical History No history of previous surgery Family History Other Cancer Social History Smoking Status: Current every day smoker tobacco type: cigarettes and smokeless tobacco alcohol intake: former (Neto in early recovery; detoxed on 09/01 to 09/07.) substance use type: denies use current occupational status: employed Travel in the last 8 weeks?: None household members: family housing: house Have you lived/traveled outside [place] in past 30 days?: No Contact w/someone who lives/traveled outside US past 30 days?: No Exposure to someone with infectious disease in past 14 days?: No Do you have a fever (greater than 100.4 F or 38 C)?: No Have you tested positive for COVID-19?: No Exposed to someone with COVID-19 in past 14 days?: No Do you have a sore throat?: No Do you have a cough?: No Do you have any weakness?: No Do you have any diarrhea?: No Are you experiencing any unusual bleeding?: No Do you have any muscle aches/pain?: No Do you have any abdominal pain?: No Are you experiencing loss of taste or smell?: No Other Medical History Have you received the Pneumonia Vaccine: No Review of Systems Review of Systems Review of systems:: pertinent systems reviewed and negative unless documented below Meds Home Medications and Allergies Home Medications ?Medication ?Instructions ?Recorded ?Confirmed ?Type montelukast 10 mg tablet 10 mg PO DAILY #30 tabs 08/25/23 09/08/24 Rx desvenlafaxine succinate 100 mg 100 mg PO DAILY #30 tabs 04/05/24 09/08/24 Rx tablet,extended release 24 hr (Pristiq) ondansetron HCl 4 mg tablet 4 mg PO Q8H PRN nausea and 04/13/24 09/08/24 Rx vomiting #20 tabs hydroxyzine pamoate 25 mg capsule 25 mg PO DAILY 09/08/24 09/08/24 History lisinopril 5 mg tablet 5 mg PO DAILY 09/08/24 09/08/24 History naltrexone 50 mg tablet 50 mg PO DAILY 09/08/24 09/08/24 History New Prescriptions to Start Prescriptions: Allergies Allergy/AdvReac Type Severity Reaction Status Date / Time No Known Allergies Allergy Verified 05/10/24 14:06 Exam Data for Last 24 hours Vital signs and Labs for Last 24 Hours: Temp Pulse Resp BP Pulse Ox O2 Del Method 98.5 F 100 H 14 149/96 H 96 Room Air 09/07/24 21:19 09/07/24 23:00 09/07/24 23:00 09/07/24 23:00 09/07/24 23:00 09/07/24 21:19 Laboratory Results - last 24 hr 09/07/24 21:20: WBC 11.1 H, RBC 5.26, Hgb 17.9, Hct 52.1 H, MCV 99.0 H, MCH 34.0 H, MCHC 34.4, RDW 12.8, Plt Count 382, MPV 8.8, Neut % (Auto) 33.0 L, Lymph % (Auto) 56.2 H, [place] % (Auto) 8.1, Eos % (Auto) 1.3, Baso % (Auto) 0.9, Neut # (Auto) 3.6, Lymph # (Auto) 6.2 H, [place] # (Auto) 0.9, Eos # (Auto) 0.1, Baso # (Auto) 0.1, Total Counted 100, Neutrophils % (Manual) 37 L, Lymphocytes % (Manual) 53 H, Monocytes % (Manual) 5, Eosinophils % (Manual) 4 H, Basophils % (Manual) 1.0, Nucleated RBCs 1, Platelet Estimate Normal, Macrocytosis 1+, PT 11.3, INR 1.02, APTT 24.4, Sodium 140, Potassium 3.0 L, Chloride 98, Carbon Dioxide 18 L, Anion Gap 27.0 H, BUN 6 L, Creatinine 0.80, Estimated Creat Clear 143, Estimated GFR 114, Est GFR ( Amer) 137, Glucose 86, Calcium 10.0, Phosphorus 2.6, Magnesium 1.7, Total Bilirubin 1.1, AST 265 H, ALT 112 H, Alkaline Phosphatase 77, Troponin I < 0.01, Total Protein 8.4 H, Albumin 5.1 H, Globulin 3.3 H, Albumin/Globulin Ratio 1.5, Salicylates < 1.0 L, Acetaminophen < 10 L, Plasma/Serum Alcohol 325 H, HCV Ab KHUSHI w/Rflx PCR Qn Negative 09/07/24 22:10: Lactate 9.3 H 09/07/24 22:35: VBG pH 7.37, VBG pCO2 28.3 L, VBG pO2 103.7 H, VBG HCO3 16.1 L, VBG Total CO2 17.0 L, VBG O2 Saturation 97.9 H, VBG Base Excess -9.1 L, VBG Lactic Acid 9.8 H 09/07/24 : Urine Color Yellow, Urine Appearance Clear, Urine pH 6.0, Ur Specific [place] 1.020, Urine Protein 1+ A, Urine Glucose (UA) Negative, Urine Ketones 3+, Urine Blood Negative, Urine Nitrate Negative, Urine Bilirubin Negative, Urine Urobilinogen 0.2, Ur Leukocyte Esterase Negative, Urine RBC 3-5, Urine WBC 3-5, Ur Squamous Epith Cells Occasional, Urine Bacteria Trace, Urine Mucus 1+, Urine Opiates Screen Negative, Urine Methadone Screen Negative, Ur Barbituates Screen Negative, Ur Phencyclidine Scrn Negative, Ur Amphetamines Screen Negative, U Benzodiazepines Scrn Negative, Urine Cocaine Screen Negative, U Marijuana (THC) Screen Negative I & O for Last 24 hours: Intake & Output 09/04/24 09/05/24 09/06/24 09/07/24 23:59 23:59 23:59 23:59 Weight 74.843 kg Constitutional Constitutional: no acute distress *Routine HEENT Exam Head: Present normocephalic Eye: Present EOMI and PERRL ENT: Present mucous membranes moist *Routine Neck Exam Neck: Present supple; Absent lymphadenopathy *Routine Respiratory Exam Respiratory: Present CTA bilaterally *Routine Cardiovascular Exam Cardiovascular: Present RRR *Routine Abdominal Exam Abdominal: Present soft and normoactive bowel sounds; Absent tenderness *Routine Rectal Exam Rectal:: deferred *Routine Genitalia Exam Genitalia:: deferred *Routine Extremities Exam Extremities: Absent cyanosis, clubbing or edema *Routine Skin Exam Skin: Present warm; Absent rash *Routine Neurological Exam Neurological: Present alert and oriented X3 Assessment and Plan *Assessment and plan (1) Hypokalemia: Status: Acute Category: Medical Code(s): E87.6 - Hypokalemia (2) Alcoholic hepatitis: Status: Acute Category: Medical Code(s): K70.10 - Alcoholic hepatitis without ascites (3) Alcohol withdrawal seizure: Status: Acute Category: Medical Code(s): F10.939 - Alcohol use, unspecified with withdrawal, unspecified; R56.9 - Unspecified convulsions (4) History of seizure due to alcohol withdrawal: Status: Acute Category: Social Hx Code(s): Z87.898 - Personal history of other specified conditions; Z86.59 - Personal history of other mental and behavioral disorders (5) Generalized anxiety disorder: Status: Acute Category: Medical Code(s): F41.1 - Generalized anxiety disorder (6) Major depressive disorder, recurrent: Status: Acute Qualifiers: Active/Remission status: currently active Major depression episode severity: moderate Qualified Code(s): F33.1 - Major depressive disorder, recurrent, moderate Category: Medical Code(s): F33.9 - Major depressive disorder, recurrent, unspecified Plan Patient is a 29-year-old male with past medical history of alcohol abuse, depression anxiety OCD substance abuse hypertension who presents to the hospital due to seizures. According to the patient he has been trying to quit alcohol, his last use of alcohol was yesterday. Patient had an episode of vomiting, nonbloody. Patient has chills, denies hallucinations. Patient had a generalized seizure. Patient drinks a pint of bourbon every day. He otherwise denied fevers chills diarrhea constipation dysuria.. Assessment and plan Seizure likely secondary to alcohol withdrawal Alcohol withdrawal Alcohol abuse Order CIWA assessment Ordered diazepam p.o. 5 Mg scheduled and as needed Ordered folic acid, multivitamins, thiamine supplementation Seizure precautions CT head performed-negative for acute process Hypokalemia Monitor and replace electrolytes Transaminitis likely secondary to alcohol abuse Monitor LFTs Anion gap metabolic acidosis Lactic acidosis Start IV fluids with normal saline Monitor lactic acid DVT prophylaxis-heparin
--- NOTE | 2024-09-07 23:51 | PC.NURSE ---
Pt arrived to ICU via stretcher at 2336.
[2024-09-08] VITALS (14 sets, daily range): BP systolic 127–155; BP diastolic 84–106; PULSE 60–113; RESP 17–30; TEMP 36.7–37.1; O2SAT 95–100; BMI 27.8
[2024-09-08 02:17] LABS: Reflex Lactic Add Lactic Reflex
[2024-09-08 03:20] LABS: Troponin I < 0.01 ng/ml (0.00-0.034)
--- NOTE | 2024-09-08 03:26 | PC.NURSE ---
Pt called out and said he thought he was going to get sick. Pt did vomit and [facility] was contacted and asked if we could get a prescription for N/V. [facility] placed order.
[2024-09-08 03:38] LABS: Lactic Acid Follow Up (RFLX 1) 5.6 mmol/L (0.7-2.1)
--- NOTE | 2024-09-08 03:40 | PC.NURSE ---
Lab called with pts lactate lab result that came back at 5.6. I notified Dr Clement and he said to continue to monitor pt
[2024-09-08] MEDS: ONDANSETRON 4MG/2ML VIAL 4 MG IV ×3 (03:43→20:52)
[2024-09-08 03:48] LABS: Troponin I < 0.01 ng/ml (0.00-0.034)
[2024-09-08 04:24] LABS: HIV Combo NEGATIVE (Negative)
[2024-09-08 05:12] LABS: Reflex Lactic (2 hrs) Add Lactic Reflex
[2024-09-08] MEDS: diazePAM 5MG TABLET 5 MG PO ×4 (05:21→20:52)
[2024-09-08 05:37] LABS: Chloride 103 mmol/L (98-107)
[2024-09-08 05:38] LABS: Albumin Level 4.5 g/dl (3.5-5.0); Potassium 3.5 mmoL/L (3.5-5.1); Sodium 138 mmol/L (136-145)
[2024-09-08 05:40] LABS: Anion Gap 17.5 mEq/L (5-15); Blood Urea Nitrogen 3 mg/dl (9-20); Carbon Dioxide 21 mmol/L (22.0-30.0); Creatinine Clearance Estimated 210 mL/min (50-200); Estimated Glomerular Filt Rate 158 ml/min (>60); GFR (African American) 191 ML/MIN (>60)
[2024-09-08 05:41] LABS: Alanine Aminotransferase 110 U/L (12-78); Albumin/Globulin Ratio 1.7 (1.1-1.8); Alkaline Phosphatase 65 U/L (38-126); Aspartate Amino Transferase 208 U/L (17-59); Bilirubin,Total 0.6 mg/dl (0.2-1.3); Calcium 9.2 mg/dl (8.4-10.2); Globulin 2.7 g/dL (1.3-3.2); Glucose 75 mg/dl (74-100); Magnesium 1.9 mg/dl (1.6-2.3); Total Protein,Serum 7.2 g/dl (6.3-8.2)
[2024-09-08 05:43] LABS: Lactic Acid Follow up (RFLX 2) 4.7 mmol/L (0.7-2.1)
--- NOTE | 2024-09-08 05:45 | PC.NURSE ---
Dr Clement contacted about pts critical lab results of a lactate at 4.7. No new orders from dr and states to continue to monitor him
[2024-09-08 05:59] LABS: Basophils # 0.1 K/mm3 (0-0.2); Basophils % 0.8 % (0.1-2.0); Eosinophils % 0.1 % (0.1-12.0); Hematocrit 47.3 % (42.0-52.0); Hemoglobin 16.3 g/dL (14.1-18.0); Immature Granulocytes # 0.03 10^3uL; Immature Granulocytes % 0.3 %; Lymphocytes # 0.9 K/mm3 (0.7-4.5); Lymphocytes % 10.4 % (10-50); Mean Corpuscular HGB Conc 34.5 g/dL (31.8-35.4); Mean Corpuscular Hemoglobin 34.7 pg (27.0-31.2); Mean Corpuscular Volume 100.6 fl (80-94); Monocytes # 0.6 K/mm3 (0.1-1.0); Monocytes % 7.1 % (1.7-9.3); Neutrophils # 7.3 K/mm3 (1.8-7.8); Neutrophils % 81.3 % (37.0-80.0); Nucleated Red Blood Cells # 0 10^3/uL; Nucleated Red Blood Cells % 0 %; Platelet Count 227 K/mm3 (142-424); Red Cell Distribution Width-SD 47.8 fL
[2024-09-08] MEDS: MAGNESIUM SULFATE IN WATER 2 GM/50 ML PIGGYBACK IV (08:07)
[2024-09-08] MEDS: 0.9 % SODIUM CHLORIDE 1000ML 1,000 ML 75 ML IV ×2 (08:07→23:14)
[2024-09-08] MEDS: LISINOPRIL 5MG TABLET 5 MG PO (08:08)
[2024-09-08] MEDS: hydrOXYzine pamoate 25MG CAPSULE 25 MG PO (08:08)
[2024-09-08] MEDS: HEPARIN SODIUM 5,000 UNIT/ML VIAL 5000 UNIT SUBCUT ×3 (08:08→20:52)
[2024-09-08] MEDS: THIAMINE 100MG TABLET 100 MG PO (08:31)
[2024-09-08] MEDS: FOLIC ACID 1MG TABLET 1 MG PO (08:31)
--- NOTE | 2024-09-08 10:50 | PC.NURSE ---
peer support and behavioral health are aware of consults on pt.
[2024-09-08] MEDS: NICOTINE 21MG/24HR PATCH 21 MG TD (10:57)
[2024-09-08] MEDS: GABAPENTIN 100MG CAPSULE 100 MG PO ×3 (10:57→20:52)
--- NOTE | 2024-09-08 11:00 | EXP.BH.CONS ---
History of Present Illness *Admission Date: 09/07/24 *Reason for visit:: Follow-up for depression and ETOH use disorder. *History of present illness: Patient is a 29-year-old male with past medical history of alcohol abuse, depression anxiety OCD substance abuse hypertension who presents to the hospital due to seizures. According to the patient he has been trying to quit alcohol, his last use of alcohol was yesterday. Patient had an episode of vomiting, nonbloody. Patient has chills, denies hallucinations. Patient had a generalized seizure. Patient drinks a pint of bourbon every day. He otherwise denied fevers chills diarrhea constipation dysuria. [facility] Disclaimer: The information contained in this section may have been updated after the patient was seen, as this information can be updated by other users. Medical History (Updated 09/08/24 @ 12:56 by Tae Pierson APRN) History of seizure due to alcohol withdrawal Insomnia, unspecified Obsessive-compulsive disorder, unspecified Elevated rheumatoid factor Vitamin B12 deficiency Right wrist pain Essential hypertension Alcohol dependence AA (alcohol abuse) Shortness of breath Anxiety Depressed Surgical History No history of previous surgery Family History Other Cancer Social History Smoking Status: Current every day smoker tobacco type: cigarettes and smokeless tobacco alcohol intake: former (Neto in early recovery; detoxed on 09/01 to 09/07.) substance use type: denies use current occupational status: employed Travel in the last 8 weeks?: None household members: family housing: house Have you lived/traveled outside US in past 30 days?: No Contact w/someone who lives/traveled outside US past 30 days?: No Exposure to someone with infectious disease in past 14 days?: No Do you have a fever (greater than 100.4 F or 38 C)?: No Have you tested positive for COVID-19?: No Exposed to someone with COVID-19 in past 14 days?: No Do you have a sore throat?: No Do you have a cough?: No Do you have any weakness?: No Do you have any diarrhea?: No Are you experiencing any unusual bleeding?: No Do you have any muscle aches/pain?: No Do you have any abdominal pain?: No Are you experiencing loss of taste or smell?: No Review of Systems Review of Systems Review of systems:: pertinent systems reviewed and negative unless documented below Constitutional Constitutional: Reports as per HPI Eyes Eyes: Reports as per HPI ENT Ears, Nose, Mouth, and Throat: Reports as per HPI *Cardiovascular Cardiovascular: Reports as per HPI *Respiratory Respiratory: Reports as per HPI *Genitourinary Genitourinary: Reports as per HPI *Musculoskeletal Musculoskeletal: Reports as per HPI Integumentary/Breasts Skin/Breast: Reports as per HPI *Neurologic Neurologic: Reports as per HPI Psychiatric Psychiatric: Reports anhedonia and Reports hopelessness Comments: He presents for ETOH use disorder and depression. He states he does not feel that Pristiq is effective and would like to change his medication. He states he has been taking it as prescribed. He reports that he also job related to depression and alcohol use. He reports that he lives with his parents and that they constantly check on him. He states that is another thing that he is depressed about is because he lives with his parents, is single, and has no kids. He denies having an appetite and states that he feels nauseous. He reports that he goes to bed around 9 30-10 o'clock when his parents go to bed but sometimes he has to have a drink before bed and then he wakes up around 130 or 2 and will often take another drink of alcohol to go back to sleep. He denies any forms of self-care and states he has not showered or shaved. He denies any suicidal plans or intentions but states he sometimes feels like he just does not deserve to live. He denies any history of any suicide attempts. He denies any history of homicidal and thoughts or plans. He does report a history of seizures but believes they are related to alcohol withdrawal. He rates his depression is 8/10 but that some days are worse than others. He states he was hearing people telling him to do bad things previously but he is not denies any hallucinations at this time. He reports that he drinks about 1 pint of alcohol on most days and then he last drank on Thursday. He states he started drinking daily when he was about 26 years ago but has had periods of sobriety and that he relapsed about a month ago. He states that he was not taking the naltrexone consistently because if he felt like he was going to drink he just wanted not take the naltrexone. He denies any interested in Vivitrol and states that he is not a fan of needles. PHQ-9 completed with a score of 22. Previous behavioral health charts reviewed. Endocrine Endocrine: Reports as per HPI Hematologic/Lymphatic Hematologic/Lymphatic: Reports as per HPI Allergic/Immunologic Allergic/Immunologic: Reports as per HPI Meds Home Medications and Allergies Home Medications ?Medication ?Instructions ?Recorded ?Confirmed ?Type montelukast 10 mg tablet 10 mg PO DAILY #30 tabs 08/25/23 09/08/24 Rx desvenlafaxine succinate 100 mg 100 mg PO DAILY #30 tabs 04/05/24 09/08/24 Rx tablet,extended release 24 hr (Pristiq) hydroxyzine pamoate 25 mg capsule 25 - 50 mg PO Q6HP PRN Anxiety 09/08/24 09/08/24 History lisinopril 5 mg tablet 5 mg PO DAILY 09/08/24 09/08/24 History New Prescriptions to Start Prescriptions: Allergies Allergy/AdvReac Type Severity Reaction Status Date / Time No Known Allergies Allergy Verified 05/10/24 14:06 Assessment and Plan *Assessment and plan (1) Depressed: Status: Acute Qualifiers: Depression Type: major depressive disorder Major depression recurrence: recurrent Active/Remission status: currently active Major depression episode severity: severe Psychotic features: without psychotic features Qualified Code(s): F33.2 - Major depressive disorder, recurrent severe without psychotic features Category: Medical Code(s): F32.A - Depression, unspecified Plan Recommend naltrexone 50mg PO daily and sertraline 50mg PO daily. Recommend discontinuing Pristiq. Do think Vivitrol injection would be more beneficial but he refuses at this time. Continue with behavioral health follow-up appointment that was previously scheduled on 09/20/24.
[2024-09-08] MEDS: PROMETHAZINE HCL 25MG/ML 1ML VIAL 12.5 MG IV (13:06)
[2024-09-08] MEDS: SODIUM CHLORIDE 0.9% 25ML BAG 25 ML IV (13:06)
--- NOTE | 2024-09-08 14:18 | P.PN_ITS ---
<Statement entered by Ethan Jorgensen MD - 09/08/24 15:43> Rounded on patient after nurse practitioner. Personally examined and interviewed patient. Agree with exam findings and care plan as documented. Subjective *Date: 09/08/24 *Time: 15:39 Interval history: Patient is sitting up in bed, no significant signs of withdrawal noted. Patient is slightly diaphoretic, slight tremors with movement, and complains of nausea. Patient denies vomiting, abdominal pain, chest pain, shortness of breath. Patient does express wanting to go to an inpatient rehab following discharge. Peers support and behavioral health consulted for further management. Last CIWA was 6. Medical Exam Vital signs and Labs for Last 24 Hours: Vital Signs Temp Pulse Pulse Resp BP BP Pulse Ox 09/08/24 14:00 97 H 20 149/105 H 99 09/08/24 12:49 09/08/24 12:00 63 22 149/91 H 97 09/08/24 12:00 60 09/08/24 11:01 98 H 19 151/101 H 98 09/08/24 11:00 09/08/24 10:00 68 18 127/90 96 09/08/24 09:00 09/08/24 08:00 09/08/24 08:00 98.5 F 73 20 140/95 H 97 09/08/24 08:00 92 H 09/08/24 07:00 09/08/24 06:00 75 21 139/97 H 95 09/08/24 05:00 105 H 17 153/101 H 100 09/08/24 04:55 09/08/24 04:00 78 09/08/24 04:00 98.7 F 74 18 129/86 95 09/08/24 03:00 105 H 23 98 09/08/24 03:00 09/08/24 02:00 92 H 18 128/84 96 09/08/24 02:00 113 H 97 09/08/24 01:00 09/08/24 00:00 110 H 30 H 140/93 H 98 09/07/24 23:54 120 H 09/07/24 23:51 98.4 F 113 H 25 H 140/93 H 98 09/07/24 23:30 98.5 F 109 H 14 149/96 H 09/07/24 23:24 98 09/07/24 23:00 100 H 14 149/96 H 96 09/07/24 22:30 112 H 24 148/103 H 100 09/07/24 22:00 102 H 14 135/95 H 99 09/07/24 21:19 98.5 F 107 H 16 158/99 H 100 O2 Del Method 09/08/24 14:00 Room Air 09/08/24 12:49 Room Air 09/08/24 12:00 Room Air 09/08/24 12:00 09/08/24 11:01 Room Air 09/08/24 11:00 Room Air 09/08/24 10:00 Room Air 09/08/24 09:00 Room Air 09/08/24 08:00 Room Air 09/08/24 08:00 Room Air 09/08/24 08:00 09/08/24 07:00 Room Air 09/08/24 06:00 Room Air 09/08/24 05:00 Room Air 09/08/24 04:55 Room Air 09/08/24 04:00 09/08/24 04:00 09/08/24 03:00 Room Air 09/08/24 03:00 Room Air 09/08/24 02:00 Room Air 09/08/24 02:00 Room Air 09/08/24 01:00 Room Air 09/08/24 00:00 Room Air 09/07/24 23:54 09/07/24 23:51 Room Air 09/07/24 23:30 Room Air 09/07/24 23:24 09/07/24 23:00 09/07/24 22:30 09/07/24 22:00 09/07/24 21:19 Room Air Intake and Output 09/07/24 09/08/24 09/08/24 23:59 07:59 15:59 Intake Total 450 / 450 Output Total 0 / 0 700 / 1150 450 / 1150 Balance 0 / 0 -700 / -700 0 / -700 Intake: Intake, Oral Amount 450 / 450 Output: Output, Urine Amount 0 / 0 700 / 1150 450 / 1150 Other: Number of Voids 1 Number of Unmeasured Voids 1 0 Weight 82.463 kg 85.185 kg Patient Weight 09/08/24 23:59 Weight 85.185 kg Laboratory Results - last 24 hr 09/07/24 21:20: WBC 11.1 H, RBC 5.26, Hgb 17.9, Hct 52.1 H, MCV 99.0 H, MCH 34.0 H, MCHC 34.4, RDW 12.8, Plt Count 382, MPV 8.8, Neut % (Auto) 33.0 L, Lymph % (Auto) 56.2 H, [place] % (Auto) 8.1, Eos % (Auto) 1.3, Baso % (Auto) 0.9, Neut # (Auto) 3.6, Lymph # (Auto) 6.2 H, Titus # (Auto) 0.9, Eos # (Auto) 0.1, Baso # (Auto) 0.1, Total Counted 100, Neutrophils % (Manual) 37 L, Lymphocytes % (Manual) 53 H, Monocytes % (Manual) 5, Eosinophils % (Manual) 4 H, Basophils % (Manual) 1.0, Nucleated RBCs 1, Platelet Estimate Normal, Macrocytosis 1+, PT 11.3, INR 1.02, APTT 24.4, Sodium 140, Potassium 3.0 L, Chloride 98, Carbon Dioxide 18 L, Anion Gap 27.0 H, BUN 6 L, Creatinine 0.80, Estimated Creat Clear 143, Estimated GFR 114, Est GFR ( Amer) 137, Glucose 86, Calcium 10.0, Phosphorus 2.6, Magnesium 1.7, Total Bilirubin 1.1, AST 265 H, ALT 112 H, Alkaline Phosphatase 77, Troponin I < 0.01, Total Protein 8.4 H, Albumin 5.1 H, Globulin 3.3 H, Albumin/Globulin Ratio 1.5, Salicylates < 1.0 L, Acetaminophen < 10 L, Plasma/Serum Alcohol 325 H, HCV Ab KHUSHI w/Rflx PCR Qn Negative, HIV Ag/Ab Combo Qual Negative 09/07/24 22:10: Lactate 9.3 H 09/07/24 22:35: VBG pH 7.37, VBG pCO2 28.3 L, VBG pO2 103.7 H, VBG HCO3 16.1 L, VBG Total CO2 17.0 L, VBG O2 Saturation 97.9 H, VBG Base Excess -9.1 L, VBG Lactic Acid 9.8 H 09/07/24 : Urine Color Yellow, Urine Appearance Clear, Urine pH 6.0, Ur Specific [place] 1.020, Urine Protein 1+ A, Urine Glucose (UA) Negative, Urine Ketones 3+, Urine Blood Negative, Urine Nitrate Negative, Urine Bilirubin Negative, Urine Urobilinogen 0.2, Ur Leukocyte Esterase Negative, Urine RBC 3-5, Urine WBC 3-5, Ur Squamous Epith Cells Occasional, Urine Bacteria Trace, Urine Mucus 1+, Urine Opiates Screen Negative, Urine Methadone Screen Negative, Ur Barbituates Screen Negative, Ur Phencyclidine Scrn Negative, Ur Amphetamines Screen Negative, U Benzodiazepines Scrn Negative, Urine Cocaine Screen Negative, U Marijuana (THC) Screen Negative 09/08/24 00:34: Troponin I < 0.01 09/08/24 03:02: Lactate 5.6 H, Troponin I < 0.01 09/08/24 05:16: WBC 9.0, RBC 4.70, Hgb 16.3, Hct 47.3, MCV 100.6 H, MCH 34.7 H, MCHC 34.5, RDW 13.0, Plt Count 227 D, MPV 9.0, Neut % (Auto) 81.3 H, Lymph % (Auto) 10.4, Titus % (Auto) 7.1, Eos % (Auto) 0.1, Baso % (Auto) 0.8, Neut # (Au to) 7.3, Lymph # (Auto) 0.9, Titus # (Auto) 0.6, Eos # (Auto) 0.0, Baso # (Auto) 0.1, Sodium 138, Potassium 3.5, Chloride 103, Carbon Dioxide 21 L, Anion Gap 17.5 H, BUN 3 L D, Creatinine 0.60 L D, Estimated Creat Clear 210, Estimated GFR 158, Est GFR ( Amer) 191 D, Glucose 75, Lactate 4.7 H, Calcium 9.2, Magnesium 1.9 D, Total Bilirubin 0.6, AST 208 H, ALT 110 H, Alkaline Phosphata se 65, Total Protein 7.2, Albumin 4.5 D, Globulin 2.7, Albumin/Globulin Ratio 1.7 I & O for Labs for Last 24 Hours: Intake & Output 09/05/24 09/06/24 09/07/24 09/08/24 23:59 23:59 23:59 23:59 Intake Total 450 / 450 Output Total 0 / 0 1150 / 1150 Balance 0 / 0 -700 / -700 Weight 82.463 kg 85.185 kg Constitutional: Present no acute distress, diaphoretic and cooperative Head: Present normocephalic ENT: Present normal exam Neck: Present normal inspection and full ROM Respiratory: Present CTA bilaterally, normal respiratory effort and able to speak in complete sentences Cardiac: Present Regular Rhythm and Tachycardia GI: Present soft and normal bowel sounds; Absent distention or tenderness Rectal (male): Present deferred (male): Present deferred Extremities: Present normal inspection and full ROM; Absent edema Skin: Present intact and warm Neuro: Present Weakness, alert, awake, oriented x 3 and moves all extremities Assessment and Plan *Assessment and plan (1) Alcohol withdrawal seizure: Status: Acute Category: Medical Code(s): F10.939 - Alcohol use, unspecified with withdrawal, unspecified; R56.9 - Unspecified convulsions (2) Alcohol use disorder, severe, in early remission: Status: Acute Category: Medical Code(s): F10.21 - Alcohol dependence, in remission (3) Generalized anxiety disorder: Status: Acute Category: Medical Code(s): F41.1 - Generalized anxiety disorder (4) Depressed: Status: Acute Qualifiers: Active/Remission status: currently active Depression Type: major depressive disorder Major depression episode severity: severe Major depression recurrence: recurrent Psychotic features: without psychotic features Qualified Code(s): F33.2 - Major depressive disorder, recurrent severe without psychotic features Category: Medical Code(s): F32.A - Depression, unspecified (5) Obsessive-compulsive disorder, unspecified: Problem Comment: Neto reported having OCD when a child and 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 Status: Acute Category: Medical Code(s): F42.9 - Obsessive-compulsive disorder, unspecified (6) Tobacco use disorder: Status: Acute Category: Medical Code(s): F17.200 - Nicotine dependence, unspecified, uncomplicated (7) Hypertension: Status: Acute Category: Medical Code(s): I10 - Essential (primary) hypertension Plan Mr. Maradiaga is a 29-year-old male, past medical history of alcohol abuse, depression, anxiety, OCD, and hypertension. He presented to the emergency department after having a alcohol withdrawal seizure. He states it lasted about 30 seconds. His mom was present for the seizure. He denies any trauma from the seizure. Patient states he drinks approximately a pint of bourbon every day starting in the morning, if he runs out and feels like he needs more he may drink another pint of bourbon that day. He denies any other substance abuse. He does state that he smokes, vapes, and uses dip. He currently denies fever, chills, diarrhea, or constipation. He does complain of nausea, lack of appetite, weakness, and is currently diaphoretic. He is also having muscle tremors periodically. CIWA scores have been between 0 and 8, Ativan ordered per protocol. He does express interest in going to inpatient rehab at discharge. He states he has been in inpatient rehab before but life stressors occurred, and he began drinking again. #Alcohol withdrawal seizure #Alcohol use disorder, severe ? CIWA ordered. Medicate per protocol. monitor for toxicity with IV valium dosing (parental controlled substance) ? IV fluids given for rehydration, folic acid and vitamin B, multivitamin ordered. ? No electrolyte abnormalities noted, sodium 138, potassium 3.5, magnesium 1.9,kidney function normal creat 0.6. Lactate on admission was 9.3 down today at 4.7. Liver function tests elevated AST 208, ALT 110. Serial troponins negative. ?CBC, CMP ordered for the a.m. ? Discussed case with social work and peers support, patient would like inpatient rehab options and resources at discharge ? Gabapentin 100 mg 3 times daily ordered to help with alcohol withdrawal. #Generalized anxiety disorder #Depressed #Obsessive-compulsive disorder ?Patient currently sees [facility] behavioral health, Estella phillips APRN, he was last seen on May 10, 2024, at which time his Pristiq was increased from 50-100 daily. He was supposed to follow-up in 2 months, but did not make that appointment. Patient does express interest to continue with behavioral health, he is not happy on his Pristiq and would like potentially a medication change. ?Behavioral health, Satnam ware APRN, saw him today and recommended continuing his naltrexone 50 mg daily, Vistaril 25 mg daily, and starting sertraline 50 mg daily, discontinuing Pristiq. Vivitrol injection recommended, but patient is not interested at this time. Patient does have outpatient follow-up on 09-20-2024. #Tobacco use disorder ?Nicotine patches ordered. Smoking cessation discussed. #Hypertension ?Continue lisinopril 5 mg daily. ? Patient has been hypertensive blood pressures 150s/100s, likely related to withdrawal and anxiety, we will continue to monitor Full code Regular diet CIWA's per protocol Ambulate as tolerated Seizure precautions Heparin 5000 units subcu 3 times daily VTE prophylaxis
--- NOTE | 2024-09-08 15:24 | PC.NURSE ---
pt asked if someone could bring in his naltrexone, pt stated that he would have his dad bring it
--- OUTSIDE RECORDS SUMMARY | 2024-09-08 15:28 | XMS_ITS | Clinical Summary ---
Author Organization [facility] Address [address] [place] [address] Care Team Providers Care Compliance Vice President Name Role Phone Unavailable Primary Care Provider Unavailabl e Source Comments [facility] is fully rolled out with thefollowing exceptions:General Clinical Research [facility] Social History Tobacco Use Types Packs/Day Years [...]
--- OUTSIDE RECORDS SUMMARY | 2024-09-08 15:28 | XMS_ITS | Encounter Summary ---
Author Organization [place] [address] Care Team Providers Care Banking Supervisor Name Role Phone Kedar Cifuentes DPM Unavailable Unav ailable Reason for Visit * Reason Onset Date Comments Other 09/07/2024 Encounter Details Date Type Department Care Team (Late st Contact Info) Description 09/07/2024 Telephone SEP [facility] [address] [place] [address] Ernesto Ricardo DO [address] [place] [address] Other Social History Tobacco Use [...] Nissa Coreas - 09/07/2024 3:00 PM EDT [facility] * Telephone Encounter - Nissa Coreas - [...] on filedocumented in this encounter Care Teams Banking Supervisor Relationship Specialty Start Date End Date Kedar Cifuentes DPM Certified Nurse Midwife-Surgery, Foot & Ankle 12/07/14 documented as of this encounter
--- OUTSIDE RECORDS SUMMARY | 2024-09-08 15:28 | XMS_ITS | Clinical Summary ---
Author Organization [facility] Address [address] [place] [address] Phone Care Team Providers Care Rod Placer Name Role Phone Kedar Cifuentes DPM Unavailable Unav ailable Allergies Active Allergy [...] Type Department Care Team Description 09/07/2024 Telephone [facility] [address] [place] [id number] Ernesto Ricardo, DO Other from Last [...] Free Lifestyle Gage Hernandez RMA Care Teams Rod Placer Relationship Specialty Start Date End Date Kedar Cifuentes DPM Anesthetist-Surgery, Foot & Ankle 12/07/14
[2024-09-08] MEDS: MULTIVITAMIN TABLET 1 EACH PO (16:58)
--- NOTE | 2024-09-08 17:18 | PEERSUPPORT ---
Peer Support Note Patient Information Patient Information: DOS: 09/08/2024 ? ETOH Last Ingested: 09/06/2024 ? ETOH level at Admission: 325 ? ETOH HX: Started drinking heavily in 20s, progressed over the years. ? ETHO Current Consumption: 1-2 pints of bourbon daily ? Previous Treatment: [facility]- 14 days, positive experience, Naltrexone 50 mg tablet form. ? Desire for treatment: Verbalized commitment to [facility] In[facility]; interested in naltrexone tablets or vivitrol injection. Ps to facilitate phone call for intake assessment on 09/09/2024. ? Longest Length of Sobriety: 3 months following his stay at [facility]. Identifies events leading up to his lapse with thinking/actions showing strength of self-awareness. ? Legal Issues: None ? Support System: Mother-Ly Father- Sister- ? Current Stressors: -Withdrawal symptoms; anxious, nausea -Loss of employment -Financial Strains ? Motivation for Change: -Pt showed interest and motivation to commit to inpatient treatment, for his drinking. He reflects to hobbies and interests he once enjoyed doing, now having no interest in doing them any longer. He is able to identify negative thinking patterns and behavior patterns of dishonesty, isolation, and mental/emotional distress that contributed to drinking. ? Ps shared personal experience emphasizing on process awareness and priority of sobriety in setting goals short/alf to achieve and maintain recovery with hope through support. ? Pt receptive to ps, in building rapport. ? Potential Barriers: -Lack of connection to recovery community -Not attending AA meetings -Negative self-talk ? Insurance: ? Harm Reduction: -Connection to [facility] peer support -Education on Alcohol use disorder -Treatment options available- Inpatient and Outpatient ? Recovery Plan: -Manage alcohol withdrawal symptoms for medical clearance/stabilization. -Ps to follow up on 09/09/2024 -Intake assessment scheduled for 09/09/2024
[2024-09-08] MEDS: MONTELUKAST SODIUM 10MG TAB 10 MG PO (20:52)
[2024-09-08] MEDS: SERTRALINE 50MG TABLET 50 MG PO (20:52)
[2024-09-09] VITALS (14 sets, daily range): BP systolic 129–159; BP diastolic 93–111; PULSE 52–75; RESP 14–22; TEMP 36.7–37.2; O2SAT 94–99; BMI 27.3
--- NOTE | 2024-09-09 05:46 | PC.NURSE ---
Pt AOx4 throughout shift. Pt had ciwa of 4 at beginning of shift stating he felt anxious, had mild headache, mild nausea, and slight tremors felt. Pt was given PRN diazepam. Pt states much relief after receiving medication. Pt woke this AM with CIWA of 0. Pt states he feels much better this AM. Seizure pads in place. Call light within reach.
[2024-09-09 05:59] LABS: Basophils % 0.7 % (0.1-2.0); Eosinophils # 0.2 Kmm3 (0.0-0.4); Eosinophils % 2.5 % (0.1-12.0); Hematocrit 46.5 % (42.0-52.0); Hemoglobin 15.4 g/dL (14.1-18.0); Immature Granulocytes # 0.02 10^3uL; Immature Granulocytes % 0.3 %; Lymphocytes % 16.7 % (10-50); Mean Corpuscular HGB Conc 33.1 g/dL (31.8-35.4); Mean Corpuscular Hemoglobin 33.8 pg (27.0-31.2); Mean Corpuscular Volume 102.2 fl (80-94); Mean Platelet Volume 9.3 fl (7.4-10.4); Monocytes # 0.6 K/mm3 (0.1-1.0); Monocytes % 9.8 % (1.7-9.3); Neutrophils # 4.3 K/mm3 (1.8-7.8); Nucleated Red Blood Cells # 0 10^3/uL; Nucleated Red Blood Cells % 0 %; Platelet Count 192 K/mm3 (142-424); Red Blood Count 4.55 M/mm3 (4.60-6.20); Red Cell Distribution Width 13.5 % (11.5-17.5); Red Cell Distribution Width-SD 50.1 fL; White Blood Count 6.1 K/mm3 (4.8-10.8)
[2024-09-09 06:09] LABS: Alanine Aminotransferase 88 U/L (12-78); Albumin/Globulin Ratio 1.6 (1.1-1.8); Alkaline Phosphatase 50 U/L (38-126); Aspartate Amino Transferase 117 U/L (17-59); Bilirubin,Total 1.7 mg/dl (0.2-1.3); Blood Urea Nitrogen 4 mg/dl (9-20); Calcium 8.8 mg/dl (8.4-10.2); Carbon Dioxide 30 mmol/L (22.0-30.0); Creatinine Clearance Estimated 214 mL/min (50-200); Estimated Glomerular Filt Rate 158 ml/min (>60); GFR (African American) 191 ML/MIN (>60); Globulin 2.5 g/dL (1.3-3.2); Glucose 100 mg/dl (74-100); Total Protein,Serum 6.6 g/dl (6.3-8.2)
[2024-09-09 06:29] LABS: Albumin Level 4.1 g/dl (3.5-5.0); Chloride 101 mmol/L (98-107); Sodium 136 mmol/L (136-145)
[2024-09-09] MEDS: KCl 10mEq/100ml 100 ML 100 MEQ IV ×3 (06:45→09:12)
[2024-09-09] MEDS: hydrOXYzine pamoate 25MG CAPSULE 25 MG PO (09:09)
[2024-09-09] MEDS: GABAPENTIN 100MG CAPSULE 100 MG PO ×2 (09:09→13:43)
[2024-09-09] MEDS: LISINOPRIL 5MG TABLET 5 MG PO (09:10)
[2024-09-09] MEDS: FOLIC ACID 1MG TABLET 1 MG PO (09:10)
[2024-09-09] MEDS: THIAMINE 100MG TABLET 100 MG PO (09:10)
[2024-09-09] MEDS: NALTREXONE 50 MG 50 EACH PO (09:11)
[2024-09-09] MEDS: HEPARIN SODIUM 5,000 UNIT/ML VIAL 5000 UNIT SUBCUT ×2 (09:13→13:44)
[2024-09-09] MEDS: 0.9 % SODIUM CHLORIDE 1000ML 1,000 ML 75 ML IV (09:15)
[2024-09-09] MEDS: SERTRALINE 50MG TABLET 50 MG PO (09:27)
[2024-09-09] MEDS: ONDANSETRON 4MG/2ML VIAL 4 MG IV (12:49)
[2024-09-09] MEDS: diazePAM 5MG TABLET 5 MG PO (12:56)
[2024-09-09 13:01] LABS: Chloride 103 mmol/L (98-107); Potassium 3.5 mmoL/L (3.5-5.1); Sodium 137 mmol/L (136-145)
[2024-09-09 13:04] LABS: Anion Gap 10.5 mEq/L (5-15); Blood Urea Nitrogen 3 mg/dl (9-20); Carbon Dioxide 27 mmol/L (22.0-30.0); Creatinine Clearance Estimated 214 mL/min (50-200); Estimated Glomerular Filt Rate 158 ml/min (>60); GFR (African American) 191 ML/MIN (>60)
[2024-09-09 13:05] LABS: Calcium 8.9 mg/dl (8.4-10.2); Glucose 88 mg/dl (74-100)
--- NOTE | 2024-09-09 13:19 | P.DS_ITS ---
<Statement entered by Shilo Waters MD - 09/13/24 12:33> Personally evaluated the patient and agree with plan of care as outlined by the ART LIBRARIAN. General Admission date:: 09/07/24 Discharge date: 09/09/24 HPI HPI HPI: Patient is a 29-year-old male with past medical history of alcohol abuse, depression anxiety OCD substance abuse hypertension who presents to the hospital due to seizures. According to the patient he has been trying to quit alcohol, his last use of alcohol was yesterday. Patient had an episode of vomiting, nonbloody. Patient has chills, denies hallucinations. Patient had a generalized seizure. Patient drinks a pint of bourbon every day. He otherwise denied fevers chills diarrhea constipation dysuria. Hospital Course Hospital Course Hospital Course: Mr. Maradiaga is a 29-year-old male, past medical history of alcohol abuse, depression, anxiety, OCD, and hypertension. He presented to the emergency department after having a alcohol withdrawal seizure. He states it lasted about 30 seconds. His mom was present for the seizure. He denies any trauma from the seizure. Patient states he drinks approximately a pint of bourbon every day starting in the morning, if he runs out and feels like he needs more he may drink another pint of bourbon that day. He denies any other substance abuse. He does state that he smokes, vapes, and uses dip. He currently denies fever, chills, diarrhea, or constipation. He does complain of nausea, lack of appetite, weakness, and is currently diaphoretic. He is also having muscle tremors periodically. CIWA scores initially were in 8, overnight they remained 0. He expressed interest in going to inpatient rehab at discharge. He states he has been in inpatient rehab before but life stressors occurred, and he began drinking again. Juanita, with peer support, was able to find inpatient rehab at the [facility]. Patient agreeable and in overall good spirits today. Patient has remained positive during stay and states he is ready to go to inpatient rehab and get better. #Alcohol withdrawal seizure #Alcohol use disorder, severe ?CIWA monitored during admission, medicated per protocol, monitor for toxicity with IV valium dosing (parental controlled substance) ? IV fluids given for rehydration, folic acid and vitamin B, multivitamin ordered. Will continue multivitamin at discharge. ? No electrolyte abnormalities noted on admission, sodium 138, potassium 3.5, magnesium 1.9,kidney function normal creat 0.6. Lactate on admission was 9.3 down today at 4.7. Liver function tests elevated AST 208 down to 117 today, ALT 110 down to 88 today. Serial for troponins negative. Potassium did have a drop to 3.0 overnight, replaced with IV potassium, repeat potassium 3.5 today. ? Electrolytes, kidney function, and CBC were monitored during stay. ? Discussed case with social work and peers support, patient would like inpatient rehab options and resources at discharge. As a house excepted patient for inpatient rehab, patient agreeable ?Discharged with gabapentin 100 mg 3 times daily ordered to help with alcohol withdrawal. ?Continue home naltrexone 50 mg daily per behavioral health recommendation. #Generalized anxiety disorder #Depressed #Obsessive-compulsive disorder ?Patient currently sees [facility] behavioral health, Estella phillips APRN, he was last seen on May 10, 2024, at which time his Pristiq was increased from 50-100 daily. He was supposed to follow-up in 2 months, but did not make that appointment. Patient does expressed interest to continue with behavioral health, he is not happy on his Pristiq and would like potentially a medication change. ?Behavioral health, Satnam ware APRN, saw him yesterday and recommended continuing his naltrexone 50 mg daily, Vistaril 25 mg daily, and starting sertraline 50 mg daily, discontinuing Pristiq. - Vivitrol injection recommended, but patient is not interested at this time. Patient does have outpatient follow-up on 09-20-2024. - Sertraline 50 mg daily prescribed at discharge. #Tobacco use disorder ?Discharged with nicotine patches. Smoking cessation discussed. #Hypertension ? Continue home lisinopril 5 mg daily. ? Patient has been hypertensive blood pressures 150s/100s, likely related to withdrawal and anxiety, we will continue to monitor. Patient's pressures have became more normotensive. Will continue with lisinopril 5 mg daily. Total time spent on discharge: 32 minutes on chart review, counseling, documentation, and direct care with patient. Exam Data for Last 24 hours Vital signs and Labs for Last 24 Hours: Temp Pulse Resp BP Pulse Ox O2 Del Method O2 Flow Rate 98.1 F 71 16 159/111 H 94 L Room Air 2 09/09/24 12:09/09/24 12:09/09/24 12:09/09/24 12:09/09/24 12:09/09/24 12:09/09/24 10:13 Laboratory Results - last 24 hr 09/09/24 05:07: WBC 6.1 D, RBC 4.55 L, Hgb 15.4, Hct 46.5, MCV 102.2 H, MCH 33.8 H, MCHC 33.1, RDW 13.5, Plt Count 192, MPV 9.3, Neut % (Auto) 70.0, Lymph % (Auto) 16.7, Ford % (Auto) 9.8 H, Eos % (Auto) 2.5, Baso % (Auto) 0.7, Neut # (Auto) 4.3, Lymph # (Auto) 1.0, Ford # (Auto) 0.6, Eos # (Auto) 0.2, Baso # (Auto) 0.0, Sodium 136, Potassium 3.0 L, Chloride 101, Carbon Dioxide 30, Anion Gap 9.0, BUN 4 L D, Creatinine 0.60 L, Estimated Creat Clear 214, Estimated GFR 158, Est GFR ( Amer) 191, Glucose 100 D, Calcium 8.8, Magnesium 2.0, Total Bilirubin 1.7 H, AST 117 H D, ALT 88 H, Alkaline Phosphatase 50, Total Protein 6.6, Albumin 4.1, Globulin 2.5, Albumin/Globulin Ratio 1.6 09/09/24 12:39: Sodium 137, Potassium 3.5, Chloride 103, Carbon Dioxide 27, Anion Gap 10.5, BUN 3 L, Creatinine 0.60 L, Estimated Creat Clear 214, Estimated GFR 158, Est GFR ( Amer) 191, Glucose 88, Calcium 8.9 I & O for Last 24 hours: Intake & Output 09/06/24 09/07/24 09/08/24 09/09/24 23:59 23:59 23:59 23:59 Intake Total 1268 / 1268 1729 / 1729 Output Total 0 / 0 1300 / 1300 Balance 0 / 0 -32 / -32 1728 / 1728 Weight 82.463 kg 85.185 kg 83.915 kg Constitutional Constitutional: no acute distress and cooperative *Routine HEENT Exam Head: Present normocephalic Eye: Present EOMI ENT: Present mucous membranes moist *Routine Neck Exam Neck: Present full ROM *Routine Respiratory Exam Respiratory: Present CTA bilaterally, able to speak in complete sentences and symmetric chest movement *Routine Cardiovascular Exam Cardiovascular: Present RRR *Routine Abdominal Exam Abdominal: Present soft and normoactive bowel sounds; Absent tenderness *Routine Skin Exam Skin: Present intact and dry *Routine Neurological Exam Neurological: Present alert, oriented X3 and normal speech; Absent tremors Routine Psychiatric Exam Psychiatric: Present normal affect and normal thought process; Absent anxious Results Data Completed and Pending Labs on day of discharge: Labs from last 24 hours 09/09/24 09/09/24 12:39 05:07 WBC 6.1 D RBC 4.55 L Hgb 15.4 Hct 46.5 MCV 102.2 H MCH 33.8 H MCHC 33.1 RDW 13.5 Plt Count 192 MPV 9.3 Neut % (Auto) 70.0 Lymph % (Auto) 16.7 Ford % (Auto) 9.8 H Eos % (Auto) 2.5 Baso % (Auto) 0.7 Neut # (Auto) 4.3 Lymph # (Auto) 1.0 Ford # (Auto) 0.6 Eos # (Auto) 0.2 Baso # (Auto) 0.0 Sodium 137 136 Potassium 3.5 3.0 L Chloride 103 101 Carbon Dioxide 27 30 Anion Gap 10.5 9.0 BUN 3 L 4 L D Creatinine 0.60 L 0.60 L Estimated Creat Clear 214 214 Estimated GFR 158 158 Est GFR ( Amer) 191 191 Glucose 88 100 D Calcium 8.9 8.8 Magnesium 2.0 Total Bilirubin 1.7 H AST 117 H D ALT 88 H Alkaline Phosphatase 50 Total Protein 6.6 Albumin 4.1 Globulin 2.5 Albumin/Globulin Ratio 1.6 DS: Diagnosis Discharge Diagnosis (1) Alcohol withdrawal seizure: Status: Acute Code(s): F10.939 - Alcohol use, unspecified with withdrawal, unspecified; R56.9 - Unspecified convulsions (2) Alcohol use disorder, severe, in early remission: Status: Acute Code(s): F10.21 - Alcohol dependence, in remission (3) Generalized anxiety disorder: Status: Acute Code(s): F41.1 - Generalized anxiety disorder (4) Depressed: Status: Acute Code(s): F32.A - Depression, unspecified Qualifiers: Active/Remission status: currently active Depression Type: major depressive disorder Major depression episode severity: severe Major depression recurrence: recurrent Psychotic features: without psychotic features Qualified Code(s): F33.2 - Major depressive disorder, recurrent severe without psychotic features (5) Obsessive-compulsive disorder, unspecified: Status: Acute Code(s): F42.9 - Obsessive-compulsive disorder, unspecified Problem details: Neto reported having OCD when a child and needing things neat and traffic expert. (6) Tobacco use disorder: Status: Acute Code(s): F17.200 - Nicotine dependence, unspecified, uncomplicated (7) Hypertension: Status: Acute Code(s): I10 - Essential (primary) hypertension Meds Home Medications and Allergies Home Medications ?Medication ?Instructions ?Recorded ?Confirmed ?Type montelukast 10 mg tablet 10 mg PO DAILY #30 tabs 05/2 8/24 09/08/24 Rx hydroxyzine pamoate 25 mg capsule 25 - 50 mg PO Q6HP P RN Anxiety 09/08/24 09/08/24 History lisinopril 5 mg tablet 5 mg PO DAILY 09/08/2409/08 History Patient Home 50 mg PO DAILY 30 days #30 t abs 09/09/24 Rx gabapentin 100 mg capsule 100 mg PO TID 30 days #90 ca ps 09/09/24 Rx multivitamin with folic acid 400 1 tab PO DAILY #30 ta bs 09/09/24 Rx mcg tablet (Tab-A-Milagros) nicotine 21 mg/24 hr daily 21 mg transdermal DAILYP NH N 09/09/24 Rx transdermal patch Nicotine Cravings 28 days #2 8 ea sertraline 50 mg tablet 50 mg PO DAILY 30 days #30 t abs 09/09/24 Rx New Prescriptions to Start Prescriptions: Shilo Springer multivitamin with folic acid [Tab-A-Milagros] Pilar Cavanaugh nicotine Pilar Cavanaugh Patient Home Pilar Cavanaugh sertraline Pilar Cavanaugh Allergies Allergy/AdvReac Type Severity Reaction Status Date / Time No Known Allergies Allergy Verified 05/10/24 14:06 Discharge Plan Disposition Patient Disposition: Xfer Inpatient Rehab Fac Condition: Fair Discharge Order Discharge Orders: Discharge Order (Routine); Ordered 09/09/24 Ordered By: Pilar Cavanaugh Follow up Plan Follow up with: Jana Presley APRN [Nurse Practitioner, Behavioral Health] - Enter time for follow up Referral Note: already has apt Neyda Alegre APRN [Primary Care Provider, Family Practice] - Enter time for follow up Prescriptions/Medication Reconciliation: New multivitamin with folic acid [Tab-A-Milagros] 400 mcg Tablet 1 tab PO DAILY Qty: 30 3RF nicotine 21 mg/24 hr Patch 24 Hour 21 mg transdermal DAILYP PRN (Reason: Nicotine Cravings) 28 Days Qty: 28 0RF sertraline 50 mg Tablet 50 mg PO DAILY 30 Days Qty: 30 3RF Patient Home 50 mg PO DAILY 30 Days Qty: 30 0RF gabapentin 100 mg capsule 100 mg PO TID 30 Days Qty: 90 0RF Continued montelukast 10 mg tablet 10 mg PO DAILY Qty: 30 11RF lisinopril 5 mg tablet 5 mg PO DAILY Rx Instructions: TAKE 1 TABLET BY MOUTH ONCE DAILY; TAKE ADDITIONAL 1 TABLET DOSE FOR SBP > 160 OR DBP > 90 hydroxyzine pamoate 25 mg capsule 25 - 50 mg PO Q6HP PRN (Reason: Anxiety) Discontinued desvenlafaxine succinate [Pristiq] 100 mg tablet extended release 24 hr 100 mg PO DAILY Qty: 30 2RF Problem Reconciliation Problems Reviewed?: Yes Patient Discharge Instructions ACTIVITY: Continue current activity DIET: continue same diet Patient Instructions: Alcohol Use Disorder (Alternative Therapy), Anxiety and Panic Attacks (Alternative Therapy), All Forms of Smoking Are Bad for You Print Language: Korean Providers Primary Care Provider: Neyda Alegre Admit Provider: Ethan Jorgensen Attending Provider: Ethan Jorgensen
--- NOTE | 2024-09-09 15:56 | PC.NURSE ---
Patient elevated to a 25 degree angle at this time. Femoral site clean, dry, and intact. Continuation of care plan.
--- NOTE | 2024-09-09 17:10 | PC.NURSE ---
Patient awaiting ride from [employer] outside front exit accompanied by Juanita Delgado. Continuation of care plan.
--- NOTE | 2024-09-09 17:16 | PC.NURSE ---
Patient awaiting ride from [employer] outside front exit accompanied by Juanita Delgado. Continuation of care plan.
--- NOTE | 2024-09-09 17:46 | PEERSUPPORT ---
Peer Support Note Patient Information Patient Information: DOS: 09/09/2024 ? Pt stated he was anxious feeling, and nervous of going to inpatient treatment, but knows he needs to make changes to his life style. ? Ps facilitates intake assessment with [facility] in [place], [place]. ? Pt completed intake. ? Pt and ps discuss process and procedure of [facility], transportation to be provided once approved. ? Ps shared personal experiences to relevant situation emphasizing process of importance of day one of recovery to unlearn old habits in order to learn new. ? Laverne RN gave medication to pt for comfort in managing withdrawal symptoms and anxiet. ? Ps stayed in contact with [facility], giving updates to treatment team and family for plan of action. ? Ps and pt discussed after care plan for outpatient at [facility] for ongoing maintenance and sustainability for his recovery and support. ? Pt expressed gratitude for staff and compassionate support provided. ? Plan of action: Pt transferred direct to [facility] by provided [facility] transportation. Ps to follow up when pt completes program, for after care plan or prior to for appointment with [facility].
--- NOTE | 2024-09-09 18:40 | PC.NURSE ---
Patients home medications got left in locked medication cart. Patient's mother notified. Patient's mother states I will get them Thursday. Primary RN notified [facility] of home medications left. [facility] admission states he will leave a message for them and call us back to let us know if they need it. Awaiting call back. supervisor metal fabricating TJ notified. Medications left in locked medication cart per House.
== END 2024-09-09 17:11 ==
LOC: ER 22:39 → ICU 09-08 06:24
PROVIDERS: Internal Medicine; Nurse Practitioner; Admitting Provider Internal Medicine Adolescent Medicine; Emergency Provider Emergency Medicine; PCP Nurse Practitioner; Visit Provider Internal Medicine Adolescent Medicine
DX: F10.239 Alcohol dependence with withdrawal, unspecified (principal); F33.2 Major depressive disorder, recurrent severe without psychotic features; E87.20 Acidosis, unspecified; F41.1 Generalized anxiety disorder; F42.9 Obsessive-compulsive disorder, unspecified; F17.200 Nicotine dependence, unspecified, uncomplicated; I10 Essential (primary) hypertension; F10.21 Alcohol dependence, in remission; R56.9 Unspecified convulsions; E87.6 Hypokalemia; K70.10 Alcoholic hepatitis without ascites; Y90.8 Blood alcohol level of 240 mg/100 ml or more; Z79.899 Other long term (current) drug therapy
CPT/HCPCS: 36415; 70450; 80048; 80053; 80307; 80320; 80329; 81001; 82803; 83605; 83735; 84100; 84484; 85007; 85025; 85027; 85610; 85730; 86803; 87389; 93005; 99291; G0378; J1644; J2405; J2550; J3411; J3475; J3480; J7030; J7120

== ENCOUNTER 2024-11-06 13:15 | Inpatient (IN) | payer MEDICAID, SELFPAY ==
--- OUTSIDE RECORDS SUMMARY | 2023-03-24 20:00 | XMS_ITS | Continuity of Care Document ---
Author Organization [facility] Address [address] [place] [address] Phone Care Team Providers Care Soils Analyst Name Role Phone Stephen Garcia PT Unavailable Unavailable Medications Medication Instructions Dosage Effective Dates (start - stop) Status Comments diclofenac sodium 75 mg tablet,delayed release take 1 tablet by oral route 2 times every day 75 MG - Active Procedures Procedure Date Physical Tx exercise Therapeutic activities (one on one) Neuromuscular re-edu Physical Tx exercise Therapeutic activities (one on one) Neuromuscular re-edu Physical Tx exercise Therapeutic activities (one on one) Physical Tx exercise Therapeutic activities (one on one) Physical Tx exercise Therapeutic activities (one on one) Physical Tx exercise Therapeutic activities (one on one) Neuromuscular re-edu Physical Tx exercise Therapeutic activities (one on one) Neuromuscular re-edu Physical Tx exercise Therapeutic activities (one on one) Neuromuscular re-edu Physical Tx exercise Therapeutic activities (one on one) Therapeutic activities (one on one) Neuromuscular re-edu Physical Tx exercise Therapeutic activities (one on one) Neuromuscular re-edu Physical Tx exercise PT EVAL LOW COMPLEX 20 MIN Physical Tx exercise Office/outpatient visit,est, mod 2022 MRI Lwr Ext Joint wo Contrast Office/outpatient visit,new, mod 2022 X-ray exam of knee, 3 views Advance Directives Directive Yes / No Effective Date File Name No Information Encounters Encounter Description Practice Location Reason(s) For Visit Diagnoses Date Provider Providers Copied on Encounter [facility], [facility] [place], [place], [facility], tel:[phone] No Information 3 Radha Mitchell. [address], [place], [place], [id number] , [place]. tel:[phone] [facility], [facility] [place], [place], [facility], [place] tel:[phone] [facility] [place] Unspecified internal derangement of right kneePain in right knee 3 Maykel Jean Baptisteh. [address] [facility] [place], [facility], [place]. tel:[phone] Referring Provider: Sancho Rodriguez, [address] [facility] [place], [address] . tel:[phone] [facility], [facility] [place], [place], [facility], [place] tel:[phone] [facility] [place] Unspecified internal derangement of right kneePain in right knee 3 Maykel Hearn. [address] [place], [place], [facility], [place]. tel:[phone] Referring Provider: Sancho Rodriguez, [address] [facility] [place], [address] . tel:[phone] [facility], [facility] [address], [place], [address], [place] tel:[phone] [facility] [place] Unspecified internal derangement of right kneePain in right knee 3 [facility]. [address], [place], [place], [id number] , . tel:[phone] Referring Provider: Sancho Rodriguez, [address], [place], [address] . tel:[phone] [facility], [address], [place], [address], [place] tel:[phone] [facility] [place] Unspecified internal derangement of right kneePain in right knee 0 3 Maykel Jean Baptisteh. [address], [place], [address], [place]. tel:[phone] Referring Provider: Sancho Rodriguez, [address], [place], [address] . tel:[phone] [facility], [address], [place], [address], [place] tel:[phone] [facility] [place] Unspecified internal derangement of right kneePain in right knee 3 [facility]. [address], [place], [place], [id number] , [place]. tel:[phone] Referring Provider: Sancho Rodriguez, [address], [place], [address] . tel:[phone] [facility], [address], [place], [address], [place] tel:[phone] [facility] [place] Unspecified internal derangement of right kneePain in right knee 3 3 Maykel Jean Baptisteh. [address], [place], [address], [place]. tel:[phone] Referring Provider: Sancho Rodriguez, [address], [place], [address] . tel:[phone] [facility], [address], [place], [address], [place] tel:[phone] [facility] [place] Unspecified internal derangement of right kneePain in right knee 3 Pocahontas Edward. [address], [place], [place], [id number] , . tel:[phone] Referring Provider: Sancho Rodriguez, [address], [place], [address] . tel:[phone] [facility], [address], [place], [address], [place] tel:[phone] [facility] [place] Unspecified internal derangement of right kneePain in right knee Dec- 3 Maykel Hearn. [address], [place], [address], [place]. [phone] Referring Provider: Sancho Rodriguez, [address], [place], [address] . tel:[phone] [facility], [address], [place], [address], [place] tel:[phone] [facility] [place] Unspecified internal derangement of right kneePain in right knee 3 [facility]. [address], [place], [place], [id number] , [place]. tel:[phone] Referring Provider: Sancho Rodriguez, [address], [place], [address] . tel:[phone] [facility], [address], [place], [address], [place] tel:[phone] [facility] [place] Unspecified internal derangement of right kneePain in right knee 3 Zac Galloway. . Referring Provider: Sancho Rodriguez, [address], [place], [address] . tel:[phone] [facility], [address], [place], [address], [place] tel:[phone] [facility] [place] Unspecified internal derangement of right kneePain in right knee Dec-0 3 Rebecca Bull. [address], [place], [place], [id number] , . tel:[phone] Referring Provider: Sancho Rodriguez, [address], [place], [address] . tel:[phone] [facility], [address], [place], [address], [place] tel:[phone] [facility] [place] Unspecified internal derangement of right kneePain in right knee Nov- 3 Radha Mitchell. [address], [place], [place], [id number] , [place]. [phone] Referring Provider: Sancho Rodriguez, [address], [place], [address] . tel:[phone] Office/outpat ient visit,[facility], [address], [place], [address], [place] tel:[phone] [facility] Sprain of unspecified site of right knee, initial encounter 3 Joey Kingsley. [address], [place], [place], [id number] , [place]. tel:[phone] Referring Provider: Sancho Rodriguez, [address] [place], [address] . tel:[phone] [facility], [address], [place], [address], [place] tel:[phone] [facility] No Information 3 Joey Kingsley. [address], [place], [place], [id number] , [place]. [phone] Referring Provider: Sancho Rodriguez, [address], [place], [address] . tel:[phone] Office/outpat ient visit,[facility], [address] [facility], [place], [address], [place] tel:[phone] [facility] Unspecified injury of right lower leg, initial encounter 3 Joey Kingsley. [address] [place], [id number] , [place]. tel:[phone] Referring Provider: Sancho Rodriguez, [address] [place], [address] . tel:[phone] Family History Family Member Type Diagnosis Age At Onset No Information Payers Payer name Insurance type Covered alliance party ID Authorvickia bay(s) [facility] [id number] Social History Type Description Quantity Date Captured Comments Sex Male Smoking Status No Information Chief Complaint And Reason For Visit No Information Reason For Referral Reason For Referral No Information History Of Present Illness Encounter Date Complaint History Of Prese nt Illness knee Functional Status Date Functional Assessmen t No Information Instructions Date Instruction Additional Infor mation No Information Assessments Type Assessment Date No Information Patient Care Teams Name Effective Dates (start - stop) Status Members No Information
[2024-11-06] VITALS (11 sets, daily range): BP systolic 127–170; BP diastolic 81–118; PULSE 65–100; RESP 16–50; TEMP 36.6–36.9; O2SAT 96–100; BMI 23.1
--- OUTSIDE RECORDS SUMMARY | 2024-11-06 14:44 | XMS_ITS | Clinical Summary ---
Author Organization [facility] Address [address] [place] [address] Care Team Providers Care Instrument Person Name Role Phone Unavailable Primary Care Provider Unavailabl e Source Comments [facility] is fully rolled out with thefollowing exceptions:General Clinical Research [facility] Social History Tobacco Use Types Packs/Day [...] of 3 - 19+ 3-dose series) 2013 HPV IMMUNIZATION (1 - 3-dose SCDM series) 2021 COVID-19 Vaccine ( - 2023-2 5 season) 2023 AMB SEASONAL FLU VACCINE (#1) 11/28/2024 HIB IMMUNIZATION Aged Out No longer e [...]
--- OUTSIDE RECORDS SUMMARY | 2024-11-06 14:44 | XMS_ITS | Clinical Summary ---
Author Organization [facility] Address [address] [place] [address] Phone Care Team Providers Care Brewery Cellar Worker Name Role Phone Kedar Cifuentes DPM Unavailable [...] Type Department Care Team Description 09/07/2024 Telephone [facility] [address] [place] [id number] Ernesto Ricardo, DO Other from Last [...] 04/20/1995, 1994, Additional history exists COVID-19 Vaccine (2023- season) 2023 04/29/2021, 04/08/2021 Influenza Vaccine (#1) 2024 03/20/2014 (Declin ed) Hepatitis B Vaccine Completed 01/26/1995, 1994, 1994 [...] Free Lifestyle Gage Hernandez RMA Care Teams Brewery Cellar Worker Relationship Specialty Start Date End Date Kedar Cifuentes DPM Resident Assistant [facility] 12/07/14
--- OUTSIDE RECORDS SUMMARY | 2024-11-06 14:44 | XMS_ITS | Encounter Summary ---
Author Organization [place] [address] Care Team Providers Care Medical Pathology Teacher Name Role Phone Kedar Cifuentes DPM Unavailable Unav ailable Reason for Visit * Reason Onset Date Comments Other 09/07/2024 Encounter Details Date Type Department Care Team (Late st Contact Info) Description 09/07/2024 Telephone [facility] [address] [place] [id number] Ernesto Ricardo DO [address] [place] [address] Other Social History Tobacco Use [...] Nissa Coreas - 09/07/2024 3:00 PM EDT [facility] * Telephone Encounter - Nissa Coreas - [...] on filedocumented in this encounter Care Teams Medical Pathology Teacher Relationship Specialty Start Date End Date Kedar Cifuentes DPM Apprentice Funeral Director[facility] 12/07/14 documented as of this encounter
--- NOTE | 2024-11-06 14:47 | ECG_ITS ---
APPROVED REPORT Exam: Resting ECG HR:92 bpm ECG Measurements Heart Rate 92 AXES MI 136 P 69 QRSd 89 QRS 64 QT 353 T 73 QTc 403 Conclusion SINUS RHYTHM NORMAL ECG UNCONFIRMED REPORT Normal sinus rhythm. No ST elevation or depression. J-point elevation but no STEMI Electronically signed by : ESTEBAN JUARES, 11/07/2024 06:59:27
[2024-11-06 15:00] LABS: Hematocrit 52.3 % (42.0-52.0); Immature Granulocytes % 0.2 %; Mean Corpuscular HGB Conc 35.8 g/dL (31.8-35.4); Mean Corpuscular Hemoglobin 33.2 pg (27.0-31.2); Mean Corpuscular Volume 92.7 fl (80-94); Nucleated Red Blood Cells % 0 %; Platelet Count 327 K/mm3 (142-424); Red Blood Count 5.64 M/mm3 (4.60-6.20); Red Cell Distribution Width-SD 44.8 fL; White Blood Count 5.3 K/mm3 (4.8-10.8)
[2024-11-06] MEDS: diazePAM 10MG/2ML SYRINGE 5 MG IV ×2 (15:00→16:59)
[2024-11-06 15:04] LABS: Albumin Level 5.4 g/dl (3.5-5.0); Chloride 98 mmol/L (98-107); Sodium 142 mmol/L (136-145)
[2024-11-06 15:05] LABS: Hemoglobin 18.6 g/dL (14.1-18.0); Potassium 4.4 mmoL/L (3.5-5.1)
[2024-11-06 15:07] LABS: Alanine Aminotransferase 46 U/L (12-78); Albumin/Globulin Ratio 1.3 (1.1-1.8); Alkaline Phosphatase 65 U/L (38-126); Anion Gap 22.4 mEq/L (5-15); Aspartate Amino Transferase 64 U/L (17-59); Bilirubin,Total 0.9 mg/dl (0.2-1.3); Blood Urea Nitrogen 11 mg/dl (9-20); Carbon Dioxide 26 mmol/L (22.0-30.0); Creatinine Clearance Estimated 188 mL/min (50-200); Creatinine,Serum 0.70 mg/dl (0.66-1.25); Estimated Glomerular Filt Rate 132 ml/min (>60); GFR (African American) 160 ML/MIN (>60); Globulin 4.3 g/dL (1.3-3.2); Total Protein,Serum 9.7 g/dl (6.3-8.2)
[2024-11-06 15:08] LABS: Acetaminophen < 10 ug/ml (10-30); Calcium 9.4 mg/dl (8.4-10.2); Glucose 109 mg/dl (74-100); Lipase 120 U/L (23-300); Salicylate < 1.0 mg/dL (2.0-20.0)
[2024-11-06 15:46] LABS: Amphetamine/Metha Screen,Urine Negative ng/ml (<1000)
[2024-11-06 15:47] LABS: Barbiturates Screen,Urine Negative ng/ml (<200); Benzodiazepines Screen,Urine Negative ng/ml (<200)
[2024-11-06 15:49] LABS: Methadone Screen,Urine Negative ng/ml (<300)
[2024-11-06 15:50] LABS: Opiate Screen,Urine Negative ng/ml (<300)
[2024-11-06 15:51] LABS: Phencyclidine Screen,Urine Negative ng/ml (<25)
--- NOTE | 2024-11-06 16:25 | P.HP_ITS ---
History of Present Illness *Admission Date: 11/06/24 *Reason for visit:: alcohol withdrawal *History of present illness: Mr. Terry is a 29-year-old male with alcohol dependence, anxiety, OCD. Presented 2 months ago with alcohol withdrawal and seizures. Underwent 30 days of rehab and was doing well. Unfortunately started drinking again and presents today for reevaluation/medical clearance prior to going to rehab. Having moderate withdrawal symptoms on presentation. States to having his last drink yesterday. Severity of withdrawal symptoms 2 months ago occurred 2 to 3 days after his last drink. Workup in the ER with Normal white count 5.3, hemoglobin 18.6. Kidney function normal with BUN 11, creatinine 0.7. Liver enzymes more or less normal with bilirubin 0.9, AST 64. Alcohol level of 177. Necessitating admission for alcohol withdrawal, [facility] protocol, medical clearance prior to considering inpatient rehab. Medicine consulted for admission. On arrival to stepdown level of care, patient complains of heartburn. Symptoms somewhat better after Valium in the ED. Denies any shortness of breath. Family at bedside. [facility] Disclaimer: The information contained in this section may have been updated after the patient was seen, as this information can be updated by other users. Medical History Hypokalemia Acute viral syndrome Syncope Hypomagnesemia Injury of knee Encounter for laboratory testing for COVID-19 virus Viral syndrome History of seizure due to alcohol withdrawal Insomnia, unspecified Obsessive-compulsive disorder, unspecified Elevated rheumatoid factor Vitamin B12 deficiency Right wrist pain Essential hypertension Alcohol dependence AA (alcohol abuse) Shortness of breath Anxiety Depressed Surgical History No history of previous surgery Family History Cancer Social History Smoking Status: Current every day smoker tobacco type: cigarettes and smokeless tobacco alcohol intake: former ([facility] in early recovery; detoxed on 09/01 to 09/07.) substance use type: denies use current occupational status: employed Travel in the last 8 weeks?: None household members: family housing: house Have you lived/traveled outside [place] in past 30 days?: No Contact w/someone who lives/traveled outside [place] past 30 days?: No Exposure to someone with infectious disease in past 14 days?: No Do you have a fever (greater than 100.4 F or 38 C)?: No Have you tested positive for COVID-19?: No Exposed to someone with COVID-19 in past 14 days?: No Do you have a sore throat?: No Do you have a cough?: No Do you have any weakness?: No Do you have any diarrhea?: No Are you experiencing any unusual bleeding?: No Do you have any muscle aches/pain?: No Do you have any abdominal pain?: No Are you experiencing loss of taste or smell?: No Other Medical History Have you received the Flu Vaccine for this season: No Have you received the Pneumonia Vaccine: No Review of Systems Review of Systems Review of systems (narrative): 14 point review of systems performed, pertinent positives and negatives as per [facility] Meds Home Medications and Allergies Home Medications ?Medication ?Instructions ?Recorded ?Confirmed ?Type montelukast 10 mg tablet 10 mg PO DAILY #30 tabs /11/2011/06/24 Rx hydroxyzine pamoate 25 mg capsule 25 - 50 mg PO Q6HP P RN Anxiety 09/08/24 11/06/24 History lisinopril 5 mg tablet 10 mg PO DAILY 09/08/2410/28 History gabapentin 100 mg capsule 100 mg PO TID 30 days #90 ca ps 09/09/24 11/06/24 Rx multivitamin with folic acid 400 1 tab PO DAILY #30 ta bs 09/09/24 11/06/24 Rx mcg tablet (Tab-A-Milagros) nicotine 21 mg/24 hr daily 21 mg transdermal DAILYP TN N 09/09/24 11/06/24 Rx transdermal patch Nicotine Cravings 28 days #2 8 ea sertraline 50 mg tablet 50 mg PO DAILY 30 days #30 t abs 09/09/24 11/06/24 Rx New Prescriptions to Start Prescriptions: Allergies Allergy/AdvReac Type Severity Reaction Status Date / Time No Known Allergies Allergy Verified 05/10/24 14:06 Exam Data for Last 24 hours Vital signs and Labs for Last 24 Hours: Temp Pulse Resp BP Pulse Ox O2 Del Method 98.5 F 88 26 H 147/102 H 96 Room Air 11/06/24 14:39 11/06/24 16:00 11/06/24 16:00 11/06/24 16:00 11/06/24 16:00 11/06/24 16:00 Laboratory Results - last 24 hr 11/06/24 14:45: WBC 5.3, RBC 5.64, Hgb 18.6 H, Hct 52.3 H, MCV 92.7, MCH 33.2 H, MCHC 35.8 H, RDW 13.1, Plt Count 327, MPV 9.1, Neut % (Auto) 63.9, Lymph % (Auto) 24.9, Parmer % (Auto) 9.8 H, Eos % (Auto) 0.4, Baso % (Auto) 0.8, Neut # (Auto) 3.4, Lymph # (Auto) 1.3, Parmer # (Auto) 0.5, Eos # (Auto) 0.0, Baso # (Auto) 0.0, Sodium 142, Potassium 4.4, Chloride 98, Carbon Dioxide 26, Anion Gap 22.4 H, BUN 11, Creatinine 0.70, Estimated Creat Clear 188, Estimated GFR 132, Est GFR ( Amer) 160, Glucose 109 H, Calcium 9.4, Total Bilirubin 0.9, AST 64 H, ALT 46, Alkaline Phosphatase 65, Total Protein 9.7 H D, Albumin 5.4 H, Globulin 4.3 H, Albumin/Globulin Ratio 1.3, Lipase 120, Salicylates < 1.0 L, Acetaminophen < 10 L, Plasma/Serum Alcohol 177 H 11/06/24 15:13: Urine Opiates Screen Negative, Urine Methadone Screen Negative, Ur Barbituates Screen Negative, Ur Phencyclidine Scrn Negative, Ur Amphetamines Screen Negative, U Benzodiazepines Scrn Negative, Urine Cocaine Screen Negative, U Marijuana (THC) Screen Negative I & O for Last 24 hours: Intake & Output 11/03/24 11/04/24 11/05/24 11/06/24 23:59 23:59 23:59 23:59 Weight 86.183 kg Constitutional Constitutional: mild distress, average body habitus and cooperative *Routine HEENT Exam Head: Present normocephalic Eye: Present EOMI and PERRL ENT: Present mucous membranes moist *Routine Neck Exam Neck: Present supple; Absent lymphadenopathy *Routine Respiratory Exam Respiratory: Present CTA bilaterally; Absent rhonchi, wheezes or crackles *Routine Cardiovascular Exam Cardiovascular: Present tachycardia *Routine Abdominal Exam Abdominal: Present soft and normoactive bowel sounds; Absent tenderness *Routine Rectal Exam Rectal:: deferred *Routine Genitalia Exam Genitalia:: deferred *Routine Extremities Exam Extremities: Absent cyanosis, clubbing or edema *Routine Skin Exam Skin: Present intact and warm; Absent rash *Routine Neurological Exam Neurological: Present alert, oriented X3, moving all extremities and tremors; Absent altered mental status Assessment and Plan *Assessment and plan (1) Alcohol use disorder, severe, in early remission: Status: Acute Category: Medical Code(s): F10.21 - Alcohol dependence, in remission (2) Generalized anxiety disorder: Status: Acute Category: Medical Code(s): F41.1 - Generalized anxiety disorder (3) Depressed: Status: Acute Qualifiers: Active/Remission status: currently active Depression Type: major depressive disorder Major depression episode severity: severe Major depression recurrence: recurrent Psychotic features: without psychotic features Qualified Code(s): F33.2 - Major depressive disorder, recurrent severe without psychotic features Category: Medical Code(s): F32.A - Depression, unspecified (4) Obsessive-compulsive disorder, unspecified: Problem Comment: Neto reported having OCD when a child and 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 Status: Acute Category: Medical Code(s): F42.9 - Obsessive-compulsive disorder, unspecified (5) Tobacco use disorder: Status: Acute Category: Medical Code(s): F17.200 - Nicotine dependence, unspecified, uncomplicated (6) Hypertension: Status: Acute Category: Medical Code(s): I10 - Essential (primary) hypertension Plan Mr. Maradiaga is a 29-year-old male, past medical history of alcohol abuse, depression, anxiety, OCD, and hypertension. He presented to the emergency department with increasing symptoms of withdrawal and desire to pursue inpatient rehab again. States he finished 30 days and did really well. Unfortunately started drinking again after increased life stressors. Discussed case with ER physician, patient currently having withdrawal symptoms and CIWA scores in the mid teens. Request admission for alcohol withdrawal protocol due to high risk for seizures as he had seizures 2 months ago. I decided to admit for further management to the stepdown unit for treatment of alcohol withdrawal and to monitor for seizure activity. Necessitating inpatient care. Problems addressed as follows: #Hx of Alcohol withdrawal seizure #Alcohol use disorder, severe ? CIWA ordered. Medicate per protocol. monitor for toxicity with IV valium dosing (parental controlled substance) -Initiate phenobarbital 130 mg once on admission. Continue 65 mg twice daily -Was on gabapentin after discharge last visit. Will look to continue gabapentin in the next day or 2. -Rally pack daily -Vitamins per protocol with thiamine, folate - Repeat CBC, CMP, magnesium ordered for the morning. -Kidney function normal with BUN 11, creatinine 0.7. Liver enzymes more or less normal with bilirubin 0.9, AST 64. Alcohol level of 177. - [facility] Support[facility] social work consulted to evaluate the morning. #Generalized anxiety disorder #Depressed #Obsessive-compulsive disorder ?Patient currently sees [facility] behavioral health, Estella phillips APRN - Resume Zoloft 50 mg daily, has not increased since last visit. Consider titrating prior to discharge - Resume Vistaril 25 mg as needed every 8 hours - Plan to follow-up as an outpatient to discuss Vivitrol injections. Recommended during previous evaluation last admission in August - medical billing and coding specialist assisting with rehab placement once medically cleared - Patient is having thoughts of helplessness. No active thoughts of self-harm however or plan. #Tobacco use disorder ?Nicotine patches ordered. Smoking cessation discussed. #Hypertension ? Continue lisinopril 5 mg daily. Full code Regular diet CIWA's per protocol Ambulate as tolerated Seizure precautions Lovenox 40 mg subcu daily
--- NOTE | 2024-11-06 16:26 | ED_ITS ---
Discharge Plan Disposition Patient Disposition: Admitted Condition: Fair Clinical Impressions Clinical Impression: Alcohol withdrawal Discharge ED Provider: Yariel Cyr General Adult HPI <SUSU Zacarias - Last Filed: 11/06/24 16:31> General Chief complaint: Alcohol Stated complaint: relapse on ETOH Time Seen by Provider: 11/06/24 14:41 Mode of Arrival: Ambulatory Source of Information: Patient and Parent(s) Description of Symptoms (Recalled from ER Triage Doc. by RN): patient presents to the emergency department for alcohol withdraw. patient arrives to emergency by private vehicle from the [facility] in [place]. Patient visible diaphoretic, shaking and states a history of seizure in withdrawl. patient stated he drank a whole bottle of wine yesterday. History of Present Illness HPI narrative: Patient presents with concerns for alcohol withdrawal. He reports that he has been drinking heavily for at least 2 weeks, average of a half of 1/5 of liquor daily. He reports that he attempted to go 24 hours without drinking and then yesterday noted some withdrawal symptoms including auditory hallucinations. He reports that he then consumed an entire bottle of wine. Patient does have a history of alcohol withdrawal seizure 2 to 3 months ago. He denies any suicidal plans. He has been feeling hopeless. Patient does report some nausea and vomiting as well as significant tremor. MD complaint: alcohol withdrawal Onset (ago): day(s) Radiation: non-radiation Severity: moderate and similar to prior episodes Consistency: constant Relieving factors: other (ETOH ingestion ) Exacerbating factors: none Treatments prior to arrival: none Related Data Home Medications ?Medication ?Instructions ?Recorded ?Confirmed hydroxyzine pamoate 25 mg capsule 25 - 50 mg PO Q6HP P RN Anxiety 09/08/24 11/06/24 lisinopril 5 mg tablet 10 mg PO DAILY 09/08/2410/28 Previous Rx's ?Medication ?Instructions ?Recorded montelukast 10 mg tablet 10 mg PO DAILY #30 tabs 07/29 11/20 gabapentin 100 mg capsule 100 mg PO TID 30 days #90 ca ps 09/09/24 multivitamin with folic acid 400 1 tab PO DAILY #30 ta bs 09/09/24 mcg tablet (Tab-A-Milagros) nicotine 21 mg/24 hr daily 21 mg transdermal DAILYP PA N 09/09/24 transdermal patch Nicotine Cravings 28 days #2 8 ea sertraline 50 mg tablet 50 mg PO DAILY 30 days #30 t abs 09/09/24 Allergies Allergy/AdvReac Type Severity Reaction Status Date / Time No Known Allergies Allergy Verified 05/10/24 14:06 [facility] <SUSU Zacarias - Last Filed: 11/06/24 16:31> [facility] Disclaimer: The information contained in this section may have been updated after the patient was seen, as this information can be updated by other users. Medical History Hypokalemia Acute viral syndrome Syncope Hypomagnesemia Injury of knee Encounter for laboratory testing for COVID-19 virus Viral syndrome History of seizure due to alcohol withdrawal Insomnia, unspecified Obsessive-compulsive disorder, unspecified Elevated rheumatoid factor Vitamin B12 deficiency Right wrist pain Essential hypertension Alcohol dependence AA (alcohol abuse) Shortness of breath Anxiety Depressed Surgical History No history of previous surgery Family History Cancer Social History Smoking Status: Current every day smoker tobacco type: cigarettes and smokeless tobacco alcohol intake: former ([facility] in early recovery; detoxed on 09/01 to 09/07.) substance use type: denies use current occupational status: employed Travel in the last 8 weeks?: None household members: family housing: house Have you lived/traveled outside US in past 30 days?: No Contact w/someone who lives/traveled outside US past 30 days?: No Exposure to someone with infectious disease in past 14 days?: No Do you have a fever (greater than 100.4 F or 38 C)?: No Have you tested positive for COVID-19?: No Exposed to someone with COVID-19 in past 14 days?: No Do you have a sore throat?: No Do you have a cough?: No Do you have any weakness?: No Do you have any diarrhea?: No Are you experiencing any unusual bleeding?: No Do you have any muscle aches/pain?: No Do you have any abdominal pain?: No Are you experiencing loss of taste or smell?: No Other Medical History Have you received the Flu Vaccine for this season: No Have you received the Pneumonia Vaccine: No <SUSU Zacarias - Last Filed: 11/06/24 16:31> ROS Obtained: Yes Systems reviewed as appropriate & no additional complaints except as documented Physical Exam <SUSU Zacairas Last Filed: 11/06/24 16:31> General General appearance: alert and in no apparent distress Head Head exam: atraumatic and normocephalic Eye Eye exam: Present normal appearance and EOMI Chest Chest inspection: Present symmetric chest wall rise Respiratory Respiratory exam: Present normal lung sounds bilaterally; Absent wheezes or stridor Cardiovascular Cardiovascular exam: Present regular rate and normal rhythm; Absent systolic murmur Abdominal Exam Abdominal exam: Present soft; Absent distention, tenderness or guarding Extremities Exam Extremities exam: Present full ROM Neurological Exam Neurological exam: Present alert, oriented X3, CN II-XII intact and other (tremor at rest ); Absent motor sensory deficit Psychiatric Psychiatric exam: Present normal affect and normal mood Skin Skin exam: Present warm, dry and intact Medical Decision Making <SUSU Zacarias Last Filed: 11/06/24 16:31> Medical Records Screening: Per USPSTF and CDC recommendations, given the prevalence of disease in our region, it is our hospital?s policy to screen for HIV and viral Hepatitis for all patients aged 18 and over and those with ongoing risk factors. Sandro Inquiry Pt receiving controlled substance: No Vital Signs: 11/06/24 14:39 11/06/24 15:00 11/06/24 15:04 Temperature 98.5 F Temperature Source Oral Pulse Rate 84 Pulse Rate [Right Radial] 100 H Respiratory Rate 18 24 16 Blood Pressure 160/109 H 133/91 H Blood Pressure [Right Arm] 170/118 H Blood Pressure Mean [Right Arm] 135 Blood Pressure Source Blood Pressure Source [Right Arm] Automatic Cuff Blood Pressure Position Blood Pressure Position [Right Arm] Sitting 02 Sat by Pulse Oximetry 100 98 Oxygen Delivery Method Room Air Room Air 11/06/24 15:30 11/06/24 16:00 11/06/24 16:30 Temperature 98.0 F Temperature Source Oral Pulse Rate 91 H 88 75 Pulse Rate [Right Radial] Respiratory Rate 16 26 H 50 H Blood Pressure 157/104 H 147/102 H 152/107 H Blood Pressure [Right Arm] Blood Pressure Mean [Right Arm] Blood Pressure Source Blood Pressure Source [Right Arm] Blood Pressure Position Blood Pressure Position [Right Arm] 02 Sat by Pulse Oximetry 98 96 99 Oxygen Delivery Method Room Air Room Air Room Air 11/06/24 16:44 Temperature 98.5 F Temperature Source Oral Pulse Rate 88 Pulse Rate [Right Radial] Respiratory Rate 18 Blood Pressure 152/90 H Blood Pressure [Right Arm] Blood Pressure Mean [Right Arm] Blood Pressure Source Automatic Cuff Blood Pressure Source [Right Arm] Blood Pressure Position Sitting Blood Pressure Position [Right Arm] 02 Sat by Pulse Oximetry Oxygen Delivery Method Room Air Lab Data Lab Results 11/06/24 14:45: WBC 5.3, RBC 5.64, Hgb 18.6 H, Hct 52.3 H, MCV 92.7, MCH 33.2 H, MCHC 35.8 H, RDW 13.1, Plt Count 327, MPV 9.1, Neut % (Auto) 63.9, Lymph % (Auto) 24.9, Gilmer % (Auto) 9.8 H, Eos % (Auto) 0.4, Baso % (Auto) 0.8, Neut # (Auto) 3.4, Lymph # (Auto) 1.3, Gilmer # (Auto) 0.5, Eos # (Auto) 0.0, Baso # (Auto) 0.0, Sodium 142, Potassium 4.4, Chloride 98, Carbon Dioxide 26, Anion Gap 22.4 H, BUN 11, Creatinine 0.70, Estimated Creat Clear 188, Estimated GFR 132, Est GFR ( Amer) 160, Glucose 109 H, Calcium 9.4, Phosphorus 3.4, Total Bilirubin 0.9, AST 64 H, ALT 46, Alkaline Phosphatase 65, Total Protein 9.7 H D, Albumin 5.4 H, Globulin 4.3 H, Albumin/Globulin Ratio 1.3, Lipase 120, S alicylates < 1.0 L, Acetaminophen < 10 L, Plasma/Serum Alcohol 177 H 11/06/24 15:13: Urine Opiates Screen Negative, Urine Methadone Screen Negative, Ur Barbituates Screen Negative, Ur Phencyclidine Scrn Negative, Ur Amphetamines Screen Negative, U Benzodiazepines Scrn Negative, Urine Cocaine Screen Negative, U Marijuana (THC) Screen Negative 11/06/24 14:45 11/06/24 14:45 Orders (Tests/Meds): ED MEDICATIONS Generic Name Dose Route Start Last Admin Trade Name Freq PRN Reason Stop Dose Admin Belladonna Alkaloids 60 ml 11/06/24 18:17 11/06/24 18:28 Belladonna Alkaloids 60 Ml Ml PO 11/06/24 18:18 60 ml ONCE ONE Administration Calcium Carbonate 500 mg 11/06/24 18:17 Calcium Carbonate 500mg Chewtab PO 12/06/24 18:16 QIDP PRN Heartburn Diazepam 10 mg 11/06/24 16:21 Diazepam 10mg/2ml Syringe IV 12/06/24 16:20 Q1HP PRN CIWA >16 Diazepam 5 mg 11/06/24 16:21 Diazepam 5mg Tablet PO 12/06/24 16:20 Q1HP PRN CIWA Score 8-15 Diazepam 5 mg 11/06/24 16:21 11/06/24 16:59 Diazepam 10mg/2ml Syringe IV 12/06/24 16:20 5 mg Q1HP PRN Administration CIWA Score 8-15 Diazepam 5 mg 11/06/24 16:21 Diazepam 5mg Tablet PO 12/06/24 16:20 Q6HP PRN CIWA 2-7 Enoxaparin Sodium 40 mg 11/07/24 09:00 Enoxaparin 40mg/0.4ml Syringe SUBCUT 12/07/24 08:59 DAILY RIZWANA Folic Acid 1 mg 11/06/24 16:30 11/06/24 18:28 Folic Acid 1mg Tablet PO 12/06/24 16:29 1 mg DAILY RIZWANA Administration Hydroxyzine Pamoate 25 mg 11/06/24 18:22 Hydroxyzine Pamoate 25mg Capsule PO 12/06/24 18:21 TIDP PRN Anxiety Multivitamins 10 ml/ Thiamine 1,015 mls @ 125 mls/hr 11/07/24 09:00 HCl 100 mg/ Magnesium Sulfate IV 12/07/24 08:59 2 gm/ Lactated Ringer's DAILY RIZWANA Lisinopril 5 mg 11/07/24 09:00 Lisinopril 5mg Tablet PO 12/07/24 08:59 DAILY RIZWANA Multivitamins 1 each 11/06/24 17:00 11/06/24 17:46 Multivitamin Tablet PO 12/06/24 16:59 Not Given 1700 RIZWANA Nicotine 21 mg 11/06/24 16:21 Nicotine 21mg/24hr Patch TD 12/06/24 16:20 DAILYP PRN Nicotine Cravings Ondansetron HCl 4 mg 11/06/24 18:41 11/06/24 18:49 Ondansetron 4mg/2ml Vial IV 12/06/24 18:40 4 mg Q6HP PRN Administration Nausea Pantoprazole Sodium 40 mg 11/06/24 21:00 11/06/24 20:14 Pantoprazole 40mg Vial IV 12/06/24 20:59 40 mg HS RIZWANA Administration Phenobarbital Sodium 130 mg 11/06/24 16:21 11/06/24 17:36 Phenobarbital Sod 65mg/Ml Inj IV 11/06/24 16:22 130 mg ONCE ONE Administration Sertraline HCl 50 mg 11/07/24 09:00 Sertraline 50mg Tablet PO 12/07/24 08:59 DAILY RIZWANA Sodium Chloride 10 ml 11/06/24 14:54 Sodium Chloride 0.9% 10ml Flush Syringe IV 12/06/24 14:53 NEEDED PRN Maintain IV Site Sodium Chloride 10 ml 11/06/24 18:17 Sodium Chloride 0.9% 10ml Vial IV 12/06/24 18:16 NEEDED PRN dilute protonix Thiamine HCl 100 mg 11/06/24 16:30 11/06/24 18:28 Thiamine 100mg Tablet PO 11/08/24 09:01 100 mg DAILY RIZWANA Administration Discontinued Medications Generic Name Dose Route Start Last Admin Trade Name Freq PRN Reason Stop Dose Admin Diazepam 5 mg 11/06/24 14:51 11/06/24 15:00 Diazepam 10mg/2ml Syringe IV 11/06/24 14:52 5 mg ONCE ONE Administration ORDERS Category Date Time Status Consult Grain Oilseed Or Pasture Farm Manager [CONS] Routine Cons 11/06/24 16:31 Active Consult to Case Management [CONS] Routine Cons 11/06/24 16:21 Active Acetaminophen Stat Lab 11/06/24 14:45 Completed Blood alcohol [Ethyl Alcohol] Stat Lab 11/06/24 14:45 Completed CBC w/Auto Diff [Complete Blood Count Auto Diff] Stat Lab 11/06/24 14:45 Completed CMP [Comprehensive Metabolic Panel] Stat Lab 11/06/24 14:45 Completed Complete Blood Count Auto Diff AMLAB Lab 11/07/24 06:00 Ordered Comprehensive Metabolic Panel AMLAB Lab 11/07/24 06:00 Ordered Drug Screen,Urine Stat Lab 11/06/24 15:13 Completed Lipase Stat Lab 11/06/24 14:45 Completed Magnesium AMLAB Lab 11/07/24 06:00 Ordered Phosphorous AMLAB Lab 11/07/24 06:00 Ordered Phosphorous Routine Lab 11/06/24 14:45 Completed Salicylate Stat Lab 11/06/24 14:45 Completed Medical Decision Narrative: In summary patient is a 29-year-old male who presents the emergency department for evaluation of alcohol withdrawal and vomit. Patient is hypertensive upon arrival, afebrile. Tremor at rest. Differential diagnosis includes alcohol withdrawal, DTs, pancreatitis. Initial workup will be conducted with labs including alcohol level, lipase. Initial inventions include IV Valium. Initial workup reviewed by me unremarkable. Upon repeat evaluation tremor has resolved and blood pressure has improved as well. Given this patient to be admitted for alcohol withdrawals. <Yariel Cyr MD - Last Filed: 11/06/24 22:15> Vital Signs: 11/06/24 14:39 11/06/24 15:00 11/06/24 15:04 Temperature 98.5 F Temperature Source Oral Pulse Rate 84 Pulse Rate [Right Radial] 100 H Respiratory Rate 18 24 16 Blood Pressure 160/109 H 133/91 H Blood Pressure [Right Arm] 170/118 H Blood Pressure Mean [Right Arm] 135 Blood Pressure Source Blood Pressure Source [Right Arm] Automatic Cuff Blood Pressure Position Blood Pressure Position [Right Arm] Sitting 02 Sat by Pulse Oximetry 100 98 Oxygen Delivery Method Room Air Room Air 11/06/24 15:30 11/06/24 16:00 11/06/24 16:30 Temperature 98.0 F Temperature Source Oral Pulse Rate 91 H 88 75 Pulse Rate [Right Radial] Respiratory Rate 16 26 H 50 H Blood Pressure 157/104 H 147/102 H 152/107 H Blood Pressure [Right Arm] Blood Pressure Mean [Right Arm] Blood Pressure Source Blood Pressure Source [Right Arm] Blood Pressure Position Blood Pressure Position [Right Arm] 02 Sat by Pulse Oximetry 98 96 99 Oxygen Delivery Method Room Air Room Air Room Air 11/06/24 16:44 Temperature 98.5 F Temperature Source Oral Pulse Rate 88 Pulse Rate [Right Radial] Respiratory Rate 18 Blood Pressure 152/90 H Blood Pressure [Right Arm] Blood Pressure Mean [Right Arm] Blood Pressure Source Automatic Cuff Blood Pressure Source [Right Arm] Blood Pressure Position Sitting Blood Pressure Position [Right Arm] 02 Sat by Pulse Oximetry Oxygen Delivery Method Room Air Lab Data Lab Results 11/06/24 14:45: WBC 5.3, RBC 5.64, Hgb 18.6 H, Hct 52.3 H, MCV 92.7, MCH 33.2 H, MCHC 35.8 H, RDW 13.1, Plt Count 327, MPV 9.1, Neut % (Auto) 63.9, Lymph % (Auto) 24.9, Gilmer % (Auto) 9.8 H, Eos % (Auto) 0.4, Baso % (Auto) 0.8, Neut # (Auto) 3.4, Lymph # (Auto) 1.3, Gilmer # (Auto) 0.5, Eos # (Auto) 0.0, Baso # (Auto) 0.0, Sodium 142, Potassium 4.4, Chloride 98, Carbon Dioxide 26, Anion Gap 22.4 H, BUN 11, Creatinine 0.70, Estimated Creat Clear 188, Estimated GFR 132, Est GFR ( Amer) 160, Glucose 109 H, Calcium 9.4, Phosphorus 3.4, Total Bilirubin 0.9, AST 64 H, ALT 46, Alkaline Phosphatase 65, Total Protein 9.7 H D, Albumin 5.4 H, Globulin 4.3 H, Albumin/Globulin Ratio 1.3, Lipase 120, S alicylates < 1.0 L, Acetaminophen < 10 L, Plasma/Serum Alcohol 177 H 11/06/24 15:13: Urine Opiates Screen Negative, Urine Methadone Screen Negative, Ur Barbituates Screen Negative, Ur Phencyclidine Scrn Negative, Ur Amphetamines Screen Negative, U Benzodiazepines Scrn Negative, Urine Cocaine Screen Negative, U Marijuana (THC) Screen Negative Orders (Tests/Meds): ED MEDICATIONS Generic Name Dose Route Start Last Admin Trade Name Freq PRN Reason Stop Dose Admin Belladonna Alkaloids 60 ml 11/06/24 18:17 11/06/24 18:28 Belladonna Alkaloids 60 Ml Ml PO 11/06/24 18:18 60 ml ONCE ONE Administration Calcium Carbonate 500 mg 11/06/24 18:17 Calcium Carbonate 500mg Chewtab PO 12/06/24 18:16 QIDP PRN Heartburn Diazepam 10 mg 11/06/24 16:21 Diazepam 10mg/2ml Syringe IV 12/06/24 16:20 Q1HP PRN CIWA >16 Diazepam 5 mg 11/06/24 16:21 Diazepam 5mg Tablet PO 12/06/24 16:20 Q1HP PRN CIWA Score 8-15 Diazepam 5 mg 11/06/24 16:21 11/06/24 16:59 Diazepam 10mg/2ml Syringe IV 12/06/24 16:20 5 mg Q1HP PRN Administration CIWA Score 8-15 Diazepam 5 mg 11/06/24 16:21 Diazepam 5mg Tablet PO 12/06/24 16:20 Q6HP PRN CIWA 2-7 Enoxaparin Sodium 40 mg 11/07/24 09:00 Enoxaparin 40mg/0.4ml Syringe SUBCUT 12/07/24 08:59 DAILY RIZWANA Folic Acid 1 mg 11/06/24 16:30 11/06/24 18:28 Folic Acid 1mg Tablet PO 12/06/24 16:29 1 mg DAILY RIZWANA Administration Hydroxyzine Pamoate 25 mg 11/06/24 18:22 Hydroxyzine Pamoate 25mg Capsule PO 12/06/24 18:21 TIDP PRN Anxiety Multivitamins 10 ml/ Thiamine 1,015 mls @ 125 mls/hr 11/07/24 09:00 HCl 100 mg/ Magnesium Sulfate IV 12/07/24 08:59 2 gm/ Lactated Ringer's DAILY RIZWANA Lisinopril 5 mg 11/07/24 09:00 Lisinopril 5mg Tablet PO 12/07/24 08:59 DAILY RIZWANA Multivitamins 1 each 11/06/24 17:00 11/06/24 17:46 Multivitamin Tablet PO 12/06/24 16:59 Not Given 1700 RIZWANA Nicotine 21 mg 11/06/24 16:21 Nicotine 21mg/24hr Patch TD 12/06/24 16:20 DAILYP PRN Nicotine Cravings Ondansetron HCl 4 mg 11/06/24 18:41 11/06/24 18:49 Ondansetron 4mg/2ml Vial IV 12/06/24 18:40 4 mg Q6HP PRN Administration Nausea Pantoprazole Sodium 40 mg 11/06/24 21:00 11/06/24 20:14 Pantoprazole 40mg Vial IV 12/06/24 20:59 40 mg HS RIZWANA Administration Phenobarbital Sodium 130 mg 11/06/24 16:21 11/06/24 17:36 Phenobarbital Sod 65mg/Ml Inj IV 11/06/24 16:22 130 mg ONCE ONE Administration Sertraline HCl 50 mg 11/07/24 09:00 Sertraline 50mg Tablet PO 12/07/24 08:59 DAILY RIZWANA Sodium Chloride 10 ml 11/06/24 14:54 Sodium Chloride 0.9% 10ml Flush Syringe IV 12/06/24 14:53 NEEDED PRN Maintain IV Site Sodium Chloride 10 ml 11/06/24 18:17 Sodium Chloride 0.9% 10ml Vial IV 12/06/24 18:16 NEEDED PRN dilute protonix Thiamine HCl 100 mg 11/06/24 16:30 11/06/24 18:28 Thiamine 100mg Tablet PO 11/08/24 09:01 100 mg DAILY RIZWANA Administration Discontinued Medications Generic Name Dose Route Start Last Admin Trade Name Freq PRN Reason Stop Dose Admin Diazepam 5 mg 11/06/24 14:51 11/06/24 15:00 Diazepam 10mg/2ml Syringe IV 11/06/24 14:52 5 mg ONCE ONE Administration ORDERS Category Date Time Status Consult Grain Oilseed Or Pasture Farm Manager [CONS] Routine Cons 11/06/24 16:31 Active Consult to Case Management [CONS] Routine Cons 11/06/24 16:21 Active Acetaminophen Stat Lab 11/06/24 14:45 Completed Blood alcohol [Ethyl Alcohol] Stat Lab 11/06/24 14:45 Completed CBC w/Auto Diff [Complete Blood Count Auto Diff] Stat Lab 11/06/24 14:45 Completed CMP [Comprehensive Metabolic Panel] Stat Lab 11/06/24 14:45 Completed Complete Blood Count Auto Diff AMLAB Lab 11/07/24 06:00 Ordered Comprehensive Metabolic Panel AMLAB Lab 11/07/24 06:00 Ordered Drug Screen,Urine Stat Lab 11/06/24 15:13 Completed Lipase Stat Lab 11/06/24 14:45 Completed Magnesium AMLAB Lab 11/07/24 06:00 Ordered Phosphorous AMLAB Lab 11/07/24 06:00 Ordered Phosphorous Routine Lab 11/06/24 14:45 Completed Salicylate Stat Lab 11/06/24 14:45 Completed Medical Decision Narrative: In summary patient is a 29-year-old male who presents the emergency department for evaluation of alcohol withdrawal and vomit. Patient is hypertensive upon arrival, afebrile. Tremor at rest. Differential diagnosis includes alcohol withdrawal, DTs, pancreatitis. Initial workup will be conducted with labs including alcohol level, lipase. Initial inventions include IV Valium. Initial workup reviewed by me unremarkable. Upon repeat evaluation tremor has resolved and blood pressure has improved as well. Given this patient to be admitted for alcohol withdrawals. I was consulted by the SCOTTY, and we discussed the complexity of the problems being addressed. I approve the treatment and management plan for this patient's care in the emergency department, thus performing a substantive portion of the medical decision making. Yariel Cyr MD Critical Care <SUSU Zacarias - Last Filed: 11/06/24 16:31> Critical Care Time Critical Care Time: No
[2024-11-06 16:43] LABS: Phosphorous 3.4 mg/dl (2.5-4.5)
--- NOTE | 2024-11-06 16:55 | PC.NURSE ---
Patient arrived to ICU at this time. Patient brought up in a wheelchair by SENG Oswald. Continuation of care plan.
--- NOTE | 2024-11-06 17:25 | PC.NURSE ---
notified of patients high risk on suicide scale. Per patient, he has no active plan of suicide. Per , Patient does not need a one on one observation at this time. Patient close to nurses station and within view. Continuation of care plan.
[2024-11-06] MEDS: PHENobarbital SOD 65MG/ML INJ 130 MG IV (17:36)
--- NOTE | 2024-11-06 17:45 | PC.NURSE ---
Patient complains of chest tightness at this time. Patient states my chest feels tight. notified. states I will order some protonix and a GI cocktail. Continuation of care plan.
[2024-11-06] MEDS: THIAMINE 100MG TABLET 100 MG PO (18:28)
[2024-11-06] MEDS: FOLIC ACID 1MG TABLET 1 MG PO (18:28)
[2024-11-06] MEDS: BELLADONNA ALKALOIDS 60 ML ML PO (18:28)
[2024-11-06] MEDS: ONDANSETRON 4MG/2ML VIAL 4 MG IV (18:49)
[2024-11-06] MEDS: PANTOPRAZOLE 40MG VIAL 40 MG IV (20:14)
[2024-11-06] MEDS: PROMETHAZINE HCL 25MG/ML 1ML VIAL 25 MG IV (22:53)
[2024-11-06] MEDS: SODIUM CHLORIDE 0.9% 25ML BAG 25 ML IV (22:54)
[2024-11-07] VITALS (10 sets, daily range): BP systolic 120–155; BP diastolic 80–99; PULSE 51–84; RESP 12–20; TEMP 36.4–37.1; O2SAT 91–100; BMI 22.4
--- NOTE | 2024-11-07 01:00 | PC.NURSE ---
patient scored 0 on CIWA this check due to being asleep and resting peacefully, will rescore when patient wakes up from nap.
[2024-11-07] MEDS: diazePAM 5MG TABLET 5 MG PO ×3 (04:58→22:03)
[2024-11-07 06:04] LABS: Hematocrit 43.5 % (42.0-52.0); Immature Granulocytes % 0.3 %; Mean Corpuscular HGB Conc 34.5 g/dL (31.8-35.4); Mean Corpuscular Hemoglobin 32.5 pg (27.0-31.2); Mean Corpuscular Volume 94.2 fl (80-94); Nucleated Red Blood Cells % 0 %; Platelet Count 228 K/mm3 (142-424); Red Blood Count 4.62 M/mm3 (4.60-6.20); Red Cell Distribution Width-SD 45.9 fL; White Blood Count 5.7 K/mm3 (4.8-10.8)
[2024-11-07 06:05] LABS: Albumin Level 4.3 g/dl (3.5-5.0); Chloride 99 mmol/L (98-107); Sodium 136 mmol/L (136-145)
[2024-11-07 06:06] LABS: Potassium 4.0 mmoL/L (3.5-5.1)
[2024-11-07 06:08] LABS: Alanine Aminotransferase 34 U/L (12-78); Albumin/Globulin Ratio 1.7 (1.1-1.8); Alkaline Phosphatase 47 U/L (38-126); Anion Gap 13.0 mEq/L (5-15); Aspartate Amino Transferase 46 U/L (17-59); Bilirubin,Total 1.3 mg/dl (0.2-1.3); Blood Urea Nitrogen 10 mg/dl (9-20); Carbon Dioxide 28 mmol/L (22.0-30.0); Creatinine Clearance Estimated 159 mL/min (50-200); Creatinine,Serum 0.80 mg/dl (0.66-1.25); Estimated Glomerular Filt Rate 114 ml/min (>60); GFR (African American) 137 ML/MIN (>60); Globulin 2.6 g/dL (1.3-3.2); Phosphorous 4.1 mg/dl (2.5-4.5); Total Protein,Serum 6.9 g/dl (6.3-8.2)
[2024-11-07 06:09] LABS: Calcium 8.9 mg/dl (8.4-10.2); Glucose 96 mg/dl (74-100); Magnesium 1.9 mg/dl (1.6-2.3)
[2024-11-07 06:16] LABS: Hemoglobin 15.3 g/dL (14.1-18.0)
[2024-11-07] MEDS: FOLIC ACID 1MG TABLET 1 MG PO (08:20)
[2024-11-07] MEDS: THIAMINE 100MG TABLET 100 MG PO (08:20)
[2024-11-07] MEDS: LISINOPRIL 5MG TABLET 5 MG PO (08:20)
[2024-11-07] MEDS: SERTRALINE 50MG TABLET 50 MG PO (08:21)
[2024-11-07] MEDS: MVI, ADULT NO.1 WITH VIT K 10 ML, THIAMINE HCL 100 MG, MAGNESIUM SULFATE 2 GM in LACTAT... 125 ML IV (08:22)
--- NOTE | 2024-11-07 09:03 | P.PN_ITS ---
Subjective *Date: 11/07/24 *Time: 13:21 Interval history: Patient feeling okay this morning. Stable on room air. Mild tremor on exam. No seizure overnight. Denies nausea or vomiting. Medical Exam Vital signs and Labs for Last 24 Hours: Vital Signs Temp Pulse Pulse Resp BP BP Pulse Ox 11/07/24 08:00 97.6 F 11/07/24 06:46 11/07/24 06:00 98.4 F 84 20 155/96 H 98 11/07/24 05:00 11/07/24 04:00 98.4 F 65 18 152/99 H 99 11/07/24 04:00 60 11/07/24 03:00 11/07/24 02:00 52 L 16 136/88 98 11/07/24 01:00 11/07/24 00:00 60 11/07/24 00:00 98.8 F 62 19 138/87 91 L 11/06/24 23:00 11/06/24 22:00 65 23 147/92 H 97 11/06/24 21:00 11/06/24 20:00 80 11/06/24 20:00 99 11/06/24 20:00 98 F 95 H 18 127/81 99 11/06/24 18:39 11/06/24 17:53 11/06/24 17:10 97 11/06/24 16:57 88 11/06/24 16:44 98.5 F 88 18 152/90 H 11/06/24 16:30 98.0 F 75 50 H 152/107 H 99 11/06/24 16:00 88 26 H 147/102 H 96 11/06/24 15:30 91 H 16 157/104 H 98 11/06/24 15:04 16 133/91 H 11/06/24 15:00 84 24 160/109 H 98 11/06/24 14:39 98.5 F 100 H 18 170/118 H 100 O2 Del Method 11/07/24 08:00 11/07/24 06:46 Room Air 11/07/24 06:00 Room Air 11/07/24 05:00 Room Air 11/07/24 04:00 Room Air 11/07/24 04:00 11/07/24 03:00 Room Air 11/07/24 02:00 Room Air 11/07/24 01:00 Room Air 11/07/24 00:00 11/07/24 00:00 Room Air 11/06/24 23:00 Room Air 11/06/24 22:00 Room Air 11/06/24 21:00 Room Air 11/06/24 20:00 11/06/24 20:00 Room Air 11/06/24 20:00 Room Air 11/06/24 18:39 Room Air 11/06/24 17:53 Room Air 11/06/24 17:10 Room Air 11/06/24 16:57 11/06/24 16:44 Room Air 11/06/24 16:30 Room Air 11/06/24 16:00 Room Air 11/06/24 15:30 Room Air 11/06/24 15:04 11/06/24 15:00 Room Air 11/06/24 14:39 Room Air Intake and Output 11/06/24 11/07/24 11/07/24 23:59 07:59 15:59 Intake Total 145 / 145 Output Total 120 / 120 Balance Intake: Intake, Oral Amount 120 / 120 Intake, Other Amount Output: Output, Urine Amount 120 / 120 Other: Number of Unmeasured Voids 1 Weight 83.4 kg Patient Weight 11/07/24 23:59 Weight 83.4 kg Laboratory Results - last 24 hr 11/06/24 14:45: WBC 5.3, RBC 5.64, Hgb 18.6 H, Hct 52.3 H, MCV 92.7, MCH 33.2 H, MCHC 35.8 H, RDW 13.1, Plt Count 327, MPV 9.1, Neut % (Auto) 63.9, Lymph % (Auto) 24.9, [place] % (Auto) 9.8 H, Eos % (Auto) 0.4, Baso % (Auto) 0.8, Neut # (Auto) 3.4, Lymph # (Auto) 1.3, [place] # (Auto) 0.5, Eos # (Auto) 0.0, Baso # (Aut o) 0.0, Sodium 142, Potassium 4.4, Chloride 98, Carbon Dioxide 26, Anion Gap 22.4 H, BUN 11, Creatinine 0.70, Estimated Creat Clear 188, Estimated GFR 132, Est GFR ( Amer) 160, Glucose 109 H, Calcium 9.4, Phosphorus 3.4, Total Bilirubin 0.9, AST 64 H, ALT 46, Alkaline Phosphatase 65, Total Protein 9.7 H D, Albumin 5.4 H, Globulin 4.3 H, Albumin/Globulin Ratio 1.3, Lipase 120, Salicylates < 1.0 L, Acetaminophen < 10 L, Plasma/Serum Alcohol 177 H 11/06/24 15:13: Urine Opiates Screen Negative, Urine Methadone Screen Negative, Ur Barbituates Screen Negative, Ur Phencyclidine Scrn Negative, Ur Amphetamines Screen Negative, U Benzodiazepines Scrn Negative, Urine Cocaine Screen Negative, U Marijuana (THC) Screen Negative 11/07/24 05:42: WBC 5.7, RBC 4.62, Hgb 15.3 D, Hct 43.5, MCV 94.2 H, MCH 32.5 H , MCHC 34.5, RDW 13.3, Plt Count 228 D, MPV 9.3, Neut % (Auto) 41.3, Lymph % (Auto) 36.6, [place] % (Auto) 19.0 H, Eos % (Auto) 1.9, Baso % (Auto) 0.9, Neut # (Auto) 2.4, Lymph # (Auto) 2.1, [place] # (Auto) 1.1 H, Eos # (Auto) 0.1, Baso # (Auto) 0.1, Sodium 136, Potassium 4.0, Chloride 99, Carbon Dioxide 28, Anion Gap 13.0, BUN 10, Creatinine 0.80, Estimated Creat Clear 159, Estimated GFR 114, Est GFR ( Amer) 137, Glucose 96, Calcium 8.9, Phosphorus 4.1, Magnesium 1.9, Total Bilirubin 1.3, AST 46 D, ALT 34 D, Alkaline Phosphatase 47, Total Protein 6.9 D, Albumin 4.3 D, Globulin 2.6, Albumin/Globulin Ratio 1.7 I & O for Labs for Last 24 Hours: Intake & Output 11/04/24 11/05/24 11/06/24 11/07/24 23:59 23:59 23:59 23:59 Intake Total 145 / 145 Output Total 120 / 120 Balance Weight 86.183 kg 83.4 kg Constitutional: Present no acute distress, average body habitus and cooperative Head: Present atraumatic and normocephalic ENT: Present normal exam Neck: Present normal inspection and full ROM Respiratory: Present CTA bilaterally, normal respiratory effort and able to speak in complete sentences; Absent rhonchi, wheezes or crackles Cardiac: Present Reg Rate and Rhythm GI: Present soft and normal bowel sounds; Absent distention or tenderness Rectal (male): Present deferred (male): Present deferred Extremities: Present normal inspection and full ROM; Absent edema Skin: Present intact and warm Neuro: Present Weakness, alert, awake, oriented x 3 and moves all extremities Comment:: Mild tremor in hands Assessment and Plan *Assessment and plan (1) Alcohol use disorder, severe, in early remission: Status: Acute Category: Medical Code(s): F10.21 - Alcohol dependence, in remission (2) Generalized anxiety disorder: Status: Acute Category: Medical Code(s): F41.1 - Generalized anxiety disorder (3) Depressed: Status: Acute Qualifiers: Active/Remission status: currently active Depression Type: major depressive disorder Major depression episode severity: severe Major depression recurrence: recurrent Psychotic features: without psychotic features Qualified Code(s): F33.2 - Major depressive disorder, recurrent severe without psychotic features Category: Medical Code(s): F32.A - Depression, unspecified (4) Obsessive-compulsive disorder, unspecified: Problem Comment: Neto reported having OCD when a child and 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 Status: Acute Category: Medical Code(s): F42.9 - Obsessive-compulsive disorder, unspecified (5) Tobacco use disorder: Status: Acute Category: Medical Code(s): F17.200 - Nicotine dependence, unspecified, uncomplicated (6) Hypertension: Status: Acute Category: Medical Code(s): I10 - Essential (primary) hypertension Plan Mr. Maradiaga is a 29-year-old male, past medical history of alcohol abuse, depression, anxiety, OCD, and hypertension. He presented to the emergency department with increasing symptoms of withdrawal and desire to pursue inpatient rehab again. States he finished 30 days and did really well. Unfortunately started drinking again after increased life stressors. Discussed case with ER physician, patient currently having withdrawal symptoms and CIWA scores in the mid teens. Request admission for alcohol withdrawal protocol due to high risk for seizures as he had seizures 2 months ago. I decided to admit for further management to the stepdown unit for treatment of alcohol withdrawal and to monitor for seizure activity. De-escalate to MedSurg with telemetry. Having mild to moderate withdrawal symptoms. Continues to require patient management. Anticipate medical clearance in the next day or 2. Problems addressed as follows: #Hx of Alcohol withdrawal seizure #Alcohol use disorder, severe ? Continue monitoring per protocol. CIWA showing improvement. Continue IV valium dosing (parental controlled substance, monitor for toxicity) -Initiate phenobarbital 65 mg twice daily today. Will transition to gabapentin 100 mg 3 times a day starting tomorrow. -Rally pack daily -Vitamins per protocol with thiamine, folate - Repeat CBC, CMP, magnesium ordered for the morning. -Kidney function normal with BUN 10, creatinine 0.8. Liver enzymes normal with bili of 1.3, AST 46, ALT 34, alk phos 47 - Peers support evaluating today. Discussed case with social work. Will transition to [facility] for inpatient rehab after medical clearance. #Generalized anxiety disorder #Depressed #Obsessive-compulsive disorder ?Patient currently sees [facility] behavioral healthEstella APRN - Resume Zoloft 50 mg daily, has not increased since last visit. Increase Zoloft to 100 mg daily tomorrow. - Resume Vistaril 25 mg as needed every 8 hours - Plan to follow-up as an outpatient to discuss Vivitrol injections. Recommended during previous evaluation last admission in August - petroleum supply specialist assisting with rehab placement once medically cleared - Patient is having thoughts of helplessness. No active thoughts of self-harm however or plan. #Tobacco use disorder ?Nicotine patches ordered. Smoking cessation discussed. #Hypertension ? Continue lisinopril 5 mg daily. Full code Regular diet CIWA's per protocol Ambulate as tolerated Seizure precautions Lovenox 40 mg subcu daily
[2024-11-07] MEDS: PHENobarbital SOD 65MG/ML INJ 65 MG IV ×2 (09:16→20:30)
--- NOTE | 2024-11-07 09:35 | PC.NURSE ---
All patient care and documentation provided by Ekta KAPOOR/Sheep Farm Worker was completed under my direct supervision. Selina James RN
--- NOTE | 2024-11-07 11:46 | PEERSUPPORT ---
Peer Support Note Patient Information Patient Information: DOS: 11/06/2024 ? Pt reached out to ps, forth coming and honest with relapsing on alcohol. He is in withdrawal and interested in seeking treatment at [facility]. ? -Experiencing tremors, nausea, sweating. Concerned of seizures due to past experience. ? -Pt stated he had contacted [facility] they recommended he be medically cleared, then return to treatment. ? Pt mother and father with pt supportive of recovery and plan. ? Pt receptive to ps, apologetic but motivated to commit to treatment to make changes for his health. ? -Mother later confirmed with ps that pt was admitted at [facility], in ICU for monitoring and detox of alcohol/Dr. Jorgensen. -Expressed gratitude for support as well. ? ? Harm? Reduction: -Connection to Bridge Peer Support -Alcohol Use disorder/Recovery Process Awareness -Ps contacted [facility] ED to make aware of pt to be presenting and plan of action: Spoke with Tariq. ? Plan of action: -Report to [facility] ED for withdrawal management due to risk to be medically cleared. -Ps to follow up with pt on 11/07/2024. ?
--- NOTE | 2024-11-07 11:49 | PEERSUPPORT ---
Peer Support Note Patient Information Patient Information: DOS: 11/07/2024 Ps f/u ? Pt resting in ICU, Selina ELLSWORTH to contact ps when he is awake. Ps confirmed with [facility], bed is available, and pt has completed intake assessment on 11/06/2024. -[facility] waiting on medical clearance and records to be sent for completed approval. Ps f/u: Pt experiencing withdrawal symptoms; nausea, light vomiting, no appetite, anxiety that comes and goes. ? Emotionally feeling guilt, for relapsing. ? Ps shared personal experiences to regulating emotions through healthy coping practices gained through treatment and recovery maintenance. ? Pt and ps discussed: -Practicing-One day at a Time -Positive self-talk -Keeping hope and gratitude -Finding purpose ? Pt feared of seizures on the third day, being tomorrow of alcohol withdrawal while reflecting on past detox. ? Ps provided support that he is at less risk by being in medical setting, with medications, and provided proper care. ? Pt is motivated to return to [facility], says he has relationships with the men there who he trust so his anxiety is less this time. ? ? Plan of action: -Manage alcohol withdrawals -Discuss recovery plan further more on 11/08/2024 - Ps to follow up on 11/08/2024
[2024-11-07] MEDS: ONDANSETRON 4MG/2ML VIAL 4 MG IV ×2 (13:42→18:58)
--- OUTSIDE RECORDS SUMMARY | 2024-11-07 14:24 | XMS_ITS | Clinical Summary ---
Author Organization [facility] Address [address] [place] [address] Care Team Providers Care Game Attendant Name Role Phone Unavailable Primary Care Provider Unavailabl e Source Comments [facility] is fully rolled out with thefollowing exceptions:General Clinical Research [facility] Social History Tobacco Use Types Packs/Day [...]
--- OUTSIDE RECORDS SUMMARY | 2024-11-07 14:24 | XMS_ITS | Clinical Summary ---
Author Organization [facility] Address [address] [place] [address] Phone Care Team Providers Care Machine Overhauler Name Role Phone Martín Cifuentesudzackary Cruz DPM [...] Type Department Care Team Description 09/07/2024 Telephone [facility] [address] [place] [id number] Ernesto Ricardo, DO Other from Last [...] Free Lifestyle Gage Hernandez RMA Care Teams Machine Overhauler Relationship Specialty Start Date End Date Kedar Cifuentes DPM Geriatric Nursing Assistant-Surgery, Foot & Ankle 12/07/14
--- NOTE | 2024-11-07 16:09 | PC.NURSE ---
Pt left unit at 1603, transferred to [facility] room 206
[2024-11-07] MEDS: MULTIVITAMIN TABLET 1 EACH PO (17:07)
[2024-11-07] MEDS: NICOTINE 21MG/24HR PATCH 21 MG TD (18:58)
--- NOTE | 2024-11-07 20:15 | PC.NURSE ---
patient CIWA score was 5 at 1800, zofran given for nausea, pt ate about half of his dinner tray, nicotine patch applied to right deltoid. patient instructed to use call light before getting out of bed due to reports of dizziness when standing.
[2024-11-07] MEDS: PANTOPRAZOLE 40MG VIAL 40 MG IV (20:30)
[2024-11-07] MEDS: SODIUM CHLORIDE 0.9% 10ML VIAL 10 ML IV (20:30)
[2024-11-08] VITALS: BP 136/87; PULSE 58; RESP 16; TEMP 36.5; O2SAT 100
[2024-11-08 04:00] VITALS: BP 157/77; PULSE 65; RESP 18; TEMP 36.4; O2SAT 100; BMI 22.5
--- NOTE | 2024-11-08 04:20 | PC.NURSE ---
Patient is alert and oriented x4. He was observed to be resting in bed with eyes closed, respirations even and unlabored on room air, and no apparent distress throughout the majority of the night. CIWA scores were performed every 4 hours (see intervention for specific times + symptoms). Oral diazepam was administered once per MAR in accordance to the 22:00 CIWA score. While awake, the patient has reported feeling consistently anxious this shift. Seizure precautions ongoing, seizure pads in place. During suicide assessment for this shift, the patient reported having thoughts of shame and guilt rather than thoughts of suicide and/or harming himself. Scheduled medications were administered per MAR. Auscultation of his heart, lungs, and bowels were within normal findings. Upon initial assessment, the patient stated that during his last bowel movement (noticed this once, occurred on 11/07/24), his stool was black and loose, with bright red blood noticed during wiping. Patrick Andrews APRN was notified [id number] about this statement. Occult blood stool sample ordered by the provider; patient has not had a bowel movement during this shift thus far. He ambulates independently with standby assistance as needed in his room/to the bathroom; patient understands the significance of standby assistance from staff due to prior occurrences of feeling dizzy. He has not had any further reports of dizziness this shift. No complaints of nausea. At this time, the patient is resting in bed without any further complaints. No acute changes noted thus far. Call light within reach.
[2024-11-08 06:27] LABS: Hematocrit 47.1 % (42.0-52.0); Hemoglobin 15.9 g/dL (14.1-18.0); Immature Granulocytes % 0.3 %; Mean Corpuscular HGB Conc 33.8 g/dL (31.8-35.4); Mean Corpuscular Hemoglobin 32.1 pg (27.0-31.2); Mean Corpuscular Volume 95.2 fl (80-94); Nucleated Red Blood Cells % 0 %; Platelet Count 161 K/mm3 (142-424); Red Blood Count 4.95 M/mm3 (4.60-6.20); Red Cell Distribution Width-SD 46.3 fL; White Blood Count 6.5 K/mm3 (4.8-10.8)
[2024-11-08 06:36] LABS: Albumin Level 4.7 g/dl (3.5-5.0); Chloride 99 mmol/L (98-107); Sodium 135 mmol/L (136-145)
[2024-11-08 06:37] LABS: Potassium 3.8 mmoL/L (3.5-5.1)
[2024-11-08 06:39] LABS: Alanine Aminotransferase 31 U/L (12-78); Alkaline Phosphatase 46 U/L (38-126); Anion Gap 15.8 mEq/L (5-15); Aspartate Amino Transferase 49 U/L (17-59); Bilirubin,Total 1.7 mg/dl (0.2-1.3); Blood Urea Nitrogen 8 mg/dl (9-20); Carbon Dioxide 24 mmol/L (22.0-30.0); Creatinine Clearance Estimated 214 mL/min (50-200); Creatinine,Serum 0.60 mg/dl (0.66-1.25); Estimated Glomerular Filt Rate 158 ml/min (>60); GFR (African American) 191 ML/MIN (>60)
[2024-11-08 06:40] LABS: Albumin/Globulin Ratio 1.7 (1.1-1.8); Calcium 9.2 mg/dl (8.4-10.2); Globulin 2.7 g/dL (1.3-3.2); Glucose 75 mg/dl (74-100); Magnesium 2.2 mg/dl (1.6-2.3); Total Protein,Serum 7.4 g/dl (6.3-8.2)
[2024-11-08 07:55] VITALS: BP 155/87; PULSE 72; RESP 17; TEMP 36.8; O2SAT 99
[2024-11-08 08:00] VITALS: O2SAT 97
--- NOTE | 2024-11-08 08:55 | SW/DCPLANNER ---
Addendum entered by Vira Nguyen 11/08/24 15:04: Per Matti w/ [facility] ([phone]) they are still reviewing clinical information at this time and have not accepted patient. I will continue to follow up w/ mariam, , PS and [facility]. Original Note: I spoke w/ patient regarding plans once medically stable for discharge. PS is consulted and has been working on rehab placement at [facility]. Per patient he has been accepted to [facility]. I will follow up w/ PS regarding situation and assist if needed. Patient has requested to speak w/ donor services manager preacher and I will arrange this AM. [facility] resource list has also been provided to patient. I will continue to follow up w/ mariam, , and PS. Discharge date is unknown at this time.
--- NOTE | 2024-11-08 09:19 | PC.NURSE ---
patient reports mild anxiety, treated per MAR.
[2024-11-08 09:42] LABS: Vitamin B12 428 pg/mL (239-931)
[2024-11-08] MEDS: THIAMINE 100MG TABLET 100 MG PO (10:35)
[2024-11-08] MEDS: LISINOPRIL 5MG TABLET 5 MG PO (10:35)
[2024-11-08] MEDS: GABAPENTIN 100MG CAPSULE 100 MG PO ×2 (10:35→12:34)
[2024-11-08] MEDS: FOLIC ACID 1MG TABLET 1 MG PO (10:36)
[2024-11-08] MEDS: diazePAM 5MG TABLET 5 MG PO (10:38)
--- NOTE | 2024-11-08 11:10 | EXP.DC.SUM ---
General Admission date:: 11/06/24 HPI HPI HPI: Mr. Terry is a 29-year-old male with alcohol dependence, anxiety, OCD. Presented 2 months ago with alcohol withdrawal and seizures. Underwent 30 days of rehab and was doing well. Unfortunately started drinking again and presents today for reevaluation/medical clearance prior to going to rehab. Having moderate withdrawal symptoms on presentation. States to having his last drink yesterday. Severity of withdrawal symptoms 2 months ago occurred 2 to 3 days after his last drink. Workup in the ER with Normal white count 5.3, hemoglobin 18.6. Kidney function normal with BUN 11, creatinine 0.7. Liver enzymes more or less normal with bilirubin 0.9, AST 64. Alcohol level of 177. Necessitating admission for alcohol withdrawal, CIWA protocol, medical clearance prior to considering inpatient rehab. Medicine consulted for admission. On arrival to stepdown level of care, patient complains of heartburn. Symptoms somewhat better after Valium in the ED. Denies any shortness of breath. Family at bedside. Hospital Course Hospital Course Hospital Course: Mr. Maradiaga is a 29-year-old male, past medical history of alcohol abuse, depression, anxiety, OCD, and hypertension. He presented to the emergency department with increasing symptoms of withdrawal and desire to pursue inpatient rehab again. States he finished 30 days and did really well. Unfortunately started drinking again after increased life stressors. Discussed case with ER physician, patient currently having withdrawal symptoms and CIWA scores in the mid teens. Request admission for alcohol withdrawal protocol due to high risk for seizures as he had seizures 2 months ago. #Alcohol withdrawal #Hx of Alcohol withdrawal seizure #Alcohol use disorder ? Presented with tremors, anxiety, auditory hallucinations in the setting of alcohol withdrawal. Had been drinking liquor heavily for the past 2 weeks, unfortunately relapsed after finding a bottle of liquor in his house. ? Clinically improved with rally pack, phenobarbital, Valium, gabapentin. CIWA scores stable at this time, patient feels much better. ? Peer support consulted, patient agreeable for inpatient treatment at [facility]. Has been there before with successful treatment, however worsened relapsed after significant stressors including losing his job. Will be transported by his parents in stable condition. ? Continue home gabapentin 100 mg 3 times daily, naltrexone 50 mcg, multivitamins. #Generalized anxiety disorder #Depressed #Obsessive-compulsive disorder ? Patient currently sees [facility] behavioral health, Estella phillips APRN. No SI/HI currently. - Increased Zoloft to 100 mg daily. - Resume Vistaril 25 mg as needed every 8 hours. - Plan to follow-up as an outpatient to discuss Vivitrol injections. Recommended during previous evaluation last admission in August #Tobacco use disorder ? Nicotine patches ordered. Smoking cessation discussed. #Hypertension ? Continue lisinopril 5 mg daily. Exam Data for Last 24 hours Vital signs and Labs for Last 24 Hours: Temp Pulse Resp BP Pulse Ox O2 Del Method 98.3 F 72 17 155/87 H 97 Room Air 11/08/24 07:55 11/08/24 07:55 11/08/24 07:55 11/08/24 07:55 11/08/24 08:00 11/08/24 08:05 Laboratory Results - last 24 hr 11/08/24 06:00: WBC 6.5, RBC 4.95, Hgb 15.9, Hct 47.1, MCV 95.2 H, MCH 32.1 H, MCHC 33.8, RDW 13.1, Plt Count 161 D, MPV 10.5 H, Neut % (Auto) 57.0, Lymph % (Auto) 25.5, [place] % (Auto) 13.9 H, Eos % (Auto) 2.5, Baso % (Auto) 0.8, Neut # (Auto) 3.7, Lymph # (Auto) 1.7, [place] # (Auto) 0.9, Eos # (Auto) 0.2, Baso # (Auto) 0.1, Sodium 135 L, Potassium 3.8, Chloride 99, Carbon Dioxide 24, Anion Gap 15.8 H, BUN 8 L, Creatinine 0.60 L D, Estimated Creat Clear 214, Estimated GFR 158, Est GFR ( Amer) 191 D, Glucose 75, Calcium 9.2, Magnesium 2.2 D, Total Bilirubin 1.7 H, AST 49, ALT 31, Alkaline Phosphatase 46, Total Protein 7.4, Albumin 4.7, Globulin 2.7, Albumin/Globulin Ratio 1.7 11/08/24 06:14: Vitamin B12 428 I & O for Last 24 hours: Intake & Output 11/05/24 11/06/24 11/07/24 11/08/24 23:59 23:59 23:59 23:59 Intake Total 145 / 145 720 / 1220 500 / 500 Output Total 120 / 120 300 / 300 0 / 0 Balance 420 / 920 500 / 500 Weight 86.183 kg 83.4 kg 84.005 kg Constitutional Constitutional: no acute distress and cooperative *Routine HEENT Exam Head: Present normocephalic Eye: Present EOMI ENT: Present mucous membranes moist *Routine Neck Exam Neck: Present full ROM *Routine Respiratory Exam Respiratory: Present CTA bilaterally, able to speak in complete sentences and symmetric chest movement *Routine Cardiovascular Exam Cardiovascular: Present RRR *Routine Abdominal Exam Abdominal: Present soft and normoactive bowel sounds; Absent tenderness *Routine Skin Exam Skin: Present intact and dry *Routine Neurological Exam Neurological: Present alert, oriented X3 and normal speech; Absent tremors Routine Psychiatric Exam Psychiatric: Present normal affect and normal thought process; Absent anxious Results Data Completed and Pending Labs on day of discharge: Labs from last 24 hours 11/08/24 11/08/24 06:14 06:00 WBC 6.5 RBC 4.95 Hgb 15.9 Hct 47.1 MCV 95.2 H MCH 32.1 H MCHC 33.8 RDW 13.1 Plt Count 161 D MPV 10.5 H Neut % (Auto) 57.0 Lymph % (Auto) 25.5 [place] % (Auto) 13.9 H Eos % (Auto) 2.5 Baso % (Auto) 0.8 Neut # (Auto) 3.7 Lymph # (Auto) 1.7 [place] # (Auto) 0.9 Eos # (Auto) 0.2 Baso # (Auto) 0.1 Sodium 135 L Potassium 3.8 Chloride 99 Carbon Dioxide 24 Anion Gap 15.8 H BUN 8 L Creatinine 0.60 L D Estimated Creat Clear 214 Estimated GFR 158 Est GFR ( Amer) 191 D Glucose 75 Calcium 9.2 Magnesium 2.2 D Total Bilirubin 1.7 H AST 49 ALT 31 Alkaline Phosphatase 46 Total Protein 7.4 Albumin 4.7 Globulin 2.7 Albumin/Globulin Ratio 1.7 Vitamin B12 428 DS: Diagnosis Discharge Diagnosis (1) Alcohol use disorder, severe, in early remission: Status: Acute Code(s): F10.21 - Alcohol dependence, in remission (2) Generalized anxiety disorder: Status: Acute Code(s): F41.1 - Generalized anxiety disorder (3) Depressed: Status: Acute Code(s): F32.A - Depression, unspecified Qualifiers: Active/Remission status: currently active Depression Type: major depressive disorder Major depression episode severity: severe Major depression recurrence: recurrent Psychotic features: without psychotic features Qualified Code(s): F33.2 - Major depressive disorder, recurrent severe without psychotic features (4) Obsessive-compulsive disorder, unspecified: Status: Acute Code(s): F42.9 - Obsessive-compulsive disorder, unspecified Problem details: Neto reported having OCD when a child and needing things neat and camera person. (5) Tobacco use disorder: Status: Acute Code(s): F17.200 - Nicotine dependence, unspecified, uncomplicated (6) Hypertension: Status: Acute Code(s): I10 - Essential (primary) hypertension Meds Home Medications and Allergies Home Medications ?Medication ?Instructions ?Recorded ?Confirmed ?Type montelukast 10 mg tablet 10 mg PO DAILY #30 tabs 08/25/23 11/06/24 Rx hydroxyzine pamoate 25 mg capsule 25 - 50 mg PO Q6HP PRN Anxiety 09/08/24 11/06/24 History lisinopril 5 mg tablet 5 - 10 mg PO DAILY 09/08/24 11/07/24 History gabapentin 100 mg capsule 100 mg PO TID 30 days #90 caps 09/09/24 11/06/24 Rx multivitamin with folic acid 400 1 tab PO DAILY #30 tabs 09/09/24 11/06/24 Rx mcg tablet (Tab-A-Milagros) nicotine 21 mg/24 hr daily 21 mg transdermal DAILYP PRN 09/09/24 11/06/24 Rx transdermal patch Nicotine Cravings 28 days #28 ea multivitamin with folic acid 400 1 tab PO DAILY #30 tabs 11/08/24 Rx mcg tablet (Tab-A-Milagros) sertraline 50 mg tablet 100 mg (2 x 50 mg) PO DAILY 30 11/08/24 11/06/24 Rx days #30 tabs New Prescriptions to Start Prescriptions: multivitamin with folic acid [Tab-A-Milagros] Shilo Waters Allergies Allergy/AdvReac Type Severity Reaction Status Date / Time No Known Allergies Allergy Verified 05/10/24 14:06 Discharge Plan Disposition Patient Disposition: Home, Self-Care Condition: Fair Discharge Order Discharge Orders: Discharge Order (Routine); Ordered 11/08/24 Ordered By: Shilo Waters Follow up Plan Prescriptions/Medication Reconciliation: New multivitamin with folic acid [Tab-A-Milagros] 400 mcg Tablet 1 tab PO DAILY Qty: 30 0RF Continued montelukast 10 mg tablet 10 mg PO DAILY Qty: 30 11RF lisinopril 5 mg tablet 5 - 10 mg PO DAILY Rx Instructions: TAKE 1 TABLET BY MOUTH ONCE DAILY; TAKE ADDITIONAL 1 TABLET DOSE FOR SBP > 160 OR DBP > 90 hydroxyzine pamoate 25 mg capsule 25 - 50 mg PO Q6HP PRN (Reason: Anxiety) multivitamin with folic acid [Tab-A-Milagros] 400 mcg Tablet 1 tab PO DAILY Qty: 30 3RF Rx Instructions: 1 tab daily. 400 mcg tab nicotine 21 mg/24 hr Patch 24 Hour 21 mg transdermal DAILYP PRN (Reason: Nicotine Cravings) 28 Days Qty: 28 0RF gabapentin 100 mg capsule 100 mg PO TID 30 Days Qty: 90 0RF Changed sertraline 50 mg Tablet 100 mg PO DAILY 30 Days Qty: 30 3RF Problem Reconciliation Problems Reviewed?: Yes Patient Discharge Instructions Print Language: Romanian Providers Primary Care Provider: Provider,Referral Admit Provider: Ethan Jorgensen Attending Provider: Ethan Jorgensen
[2024-11-08] MEDS: MVI, ADULT NO.1 WITH VIT K 10 ML, THIAMINE HCL 100 MG, MAGNESIUM SULFATE 2 GM in LACTAT... 125 ML IV (12:34)
--- NOTE | 2024-11-08 15:33 | PEERSUPPORT ---
Peer Support Note Patient Information Patient Information: DOS: 11/08/2024 ? Pt had tremors while trying to eat breakfast that has since given medication. ? Pt is anxious knowing he is being discharged to return to [facility] for treatment of alcohol use. He is familiar with the process and reasoning behind the program. ? Ps and pt discussed goals with priorities of sobriety and values in life. ? [facility] [place] Approved ! ? Transportation: Family to ? ? ? Plan of action: Pt report to [facility] ?
[2024-11-08 16:33] VITALS: BP 143/99; PULSE 69; RESP 20; TEMP 36.9; O2SAT 100
== END 2024-11-08 17:17 | disposition home or self-care (01) | DRG 897 ==
LOC: ER 16:26 → ICU 16:46 → 2ND 11-07 15:42
PROVIDERS: Physician Assistant; Student in an Organized Health Care Education/Training Program; Admitting Provider Internal Medicine Adolescent Medicine; Emergency Provider Student in an Organized Health Care Education/Training Program; Visit Provider Internal Medicine Adolescent Medicine
DX: F10.232 Alcohol dependence with withdrawal with perceptual disturbance (principal); F33.2 Major depressive disorder, recurrent severe without psychotic features; F42.9 Obsessive-compulsive disorder, unspecified; I10 Essential (primary) hypertension; F41.1 Generalized anxiety disorder; F17.210 Nicotine dependence, cigarettes, uncomplicated; F17.290 Nicotine dependence, other tobacco product, uncomplicated; Y90.6 Blood alcohol level of 120-199 mg/100 ml; Z79.899 Other long term (current) drug therapy; Z56.0 Unemployment, unspecified
CPT/HCPCS: 36415; 80053; 80307; 80320; 80329; 82607; 83690; 83735; 84100; 85025; 93005; J1650; J2405; J2470; J2550; J2560; J3360; J3411; J3475; J7120